=== PATIENT | male | born 1950 | race Caucasian/White ===

== ENCOUNTER 2016-09-24 17:28 | Inpatient (IN) | payer MEDICARE, OTHER ==
[~2016-09-24] VITALS: Ht 182.9 cm; Wt 153.1 kg
[~2016-09-24 17:28] MED LIST: ACET-2047 PO; ASPI-664 PO; BENA5TAB2 PO; CHOL100062 PO; FURO40TA4 PO; GABA100C14 PO; GLIP-95 PO; INSU100C SQ; MECL12.574 PO; METO-429 PO; ONDA4TAB14 PO; OXYC-279 PO; POLY17PO6 PO; PRAV40TA76 PO; RIVA15TA PO; SENN-8 PO; SITA100T8 PO; TAMS0.4C2 PO; ZOLP5TAB7 PO
--- NOTE | 2016-09-24 18:47 | RADRPT ---
PROCEDURE: XR Chest. CLINICAL INDICATION: Chest pain TECHNIQUE: A single portable view of the chest was obtained. COMPARISON: 04/12/2016 FINDINGS: The technique is lordotic. A prior median sternotomy is again seen. The aorta is tortuous and athe rosclerotic. The cardiomediastinal silhouette is otherwise mildly enlarged. The lung volumes are lo w with bibasilar compressive atelectasis. Mild diffuse pulmonary vascular congestion is seen. Left costophrenic blunting is suggested. No dense consolidation is seen. The soft tissues and osseous st ructures demonstrate benign age related senescent changes. IMPRESSION: 1. Mild cardiomegaly and mild diffuse pulmonary vascular congestion. 2. Left costophrenic angle blunting which may represent a small pleural effusion. RPTAT: HPNM Physician Helga Date Time Electronically viewed and signed by Physician Helga on 09/24/2016 18:46 /
[2016-09-24 19:01] LABS: ADD SCAN DIFF NO
[2016-09-24 19:03] LABS: BASOPHIL # 0.1 10^3/ul (0.0-0.1); EOSINOPHILS # 0.2 10^3/ul (0.0-0.5); HEMATOCRIT 37.4 % (42.0-52.0); HEMOGLOBIN 12.5 g/dl (14.0-18.0); LYMPHOCYTES # 1.1 10^3/ul (0.8-2.9); LYMPHOCYTES % 15.3 % (15.0-51.0); MEAN CORPUSCULAR HEMOGLOBIN 30.9 pg (29.0-33.0); MEAN CORPUSCULAR HGB CONC 33.4 g/dl (32.0-37.0); MEAN CORPUSCULAR VOLUME 92.6 fl (82.0-101.0); MEAN PLATELET VOLUME 10.8 fl (7.4-10.4); MONOCYTE # 0.7 10^3/ul (0.3-0.9); MONOCYTES % 10.1 % (0.0-11.0); NEUTROPHIL # 4.9 10^3/ul (1.6-7.5); PLATELET COUNT 167 10^3/UL (140-415); RED BLOOD COUNT 4.04 10^6/ul (4.70-6.10); RED CELL DISTRIBUTION WIDTH 13.4 % (11.5-14.5)
[2016-09-24 19:18] LABS: INR 1.42; PROTIME 17.4 Sec (12.2-14.2); PT RATIO 1.4
[2016-09-24 19:21] LABS: CHLORIDE 94 mmol/L (97-110); POTASSIUM 4.7 mmol/L (3.5-5.1); SODIUM 135 mmol/L (135-144)
[2016-09-24 19:24] LABS: ANION GAP 16 (8-16); BLOOD UREA NITROGEN 36 mg/dl (7-20); CARBON DIOXIDE 30 mmol/L (21-31); CREATININE 1.71 mg/dl (0.61-1.24); GLUCOSE 348 mg/dl (70-220)
[2016-09-24 19:25] LABS: CALCIUM 9.2 mg/dl (8.4-10.2)
--- NOTE | 2016-09-24 19:27 | RADRPT ---
PROCEDURE: US Lower extremity Venous. CLINICAL INDICATION: Left leg edema TECHNIQUE: Multiple sonographic images of the left lower extremity deep venous system was obtained utilizing grayscale, color-flow, compressive sonography and doppler imaging with augmentation. The images were reviewed on a PACS workstation. COMPARISON: None. FINDINGS: There is normal compressibility and flow within the left common femoral, femoral, posterior tibial, peroneal and popliteal veins. RPTAT: AA IMPRESSION: No sonographic evidence for deep venous thrombosis. .Jon Guerrero MD, MD Date Time Electronically viewed and signed by .Jon Guerrero MD, on 09/24/2016 19:26 .S/
[2016-09-24 19:34] LABS: B-TYPE NATRIURETIC PEPTIDE 1080 PG/ML (0-125)
[2016-09-24 19:42] LABS: TROPONIN-I < 0.012 ng/ml (0.00-0.12)
[2016-09-24] MEDS ORDERED: VANCOMYCIN 1 GM (PMX) 250 ML IVPB STA (19:52)
[2016-09-24] MEDS ORDERED: PIPER-TAZO 3.375 GM IV (PMX) 100 ML IVPB STA (19:52)
[2016-09-24] MEDS ORDERED: INSULIN LISPRO 100 UNIT/ML VIAL SC STA (19:57)
[2016-09-24] MEDS ORDERED: SOD CHLORIDE 0.9% 1,000 ML IV SCH (19:57)
--- NOTE | 2016-09-24 19:57 | ERA ---
ER Documentation Chief Complaint Date/Time DATE: 09/24/16 TIME: 19:54 Chief Complaint SENT BY SNF FOR EVAL OF LEFT LEG BLISTER AND REDNESS. HPI This is a 65-year-old male who presents to the emergency room for evaluation of left lower extremity pain and blistering. This patient was sent in by his primary care physician, Dr. Hopper. This patient denies any trauma to the area and denies any fevers. He does state he has blood clots in his legs and is on Xarelto for blood clots. The patient denies any numbness or tingling in the extremity and came to the ER for evaluation ROS All systems reviewed and are negative except as per history of present illness. Medications Home Meds Active Scripts Ondansetron (Ondansetron Odt) 4 Mg Tab.rapdis, 4 MG PO Q6H Y for NAUSEA AND/OR VOMITING, #30 TAB Prov:SWAPNIL RM MD 04/12/16 Meclizine Hcl* (Antivert*) 12.5 Mg Tab, 25 MG PO Q6H Y for DIZZINESS, #20 TAB Prov:SWAPNIL RM MD 04/12/16 Reported Medications Zolpidem Tartrate* (Zolpidem Tartrate*) 5 Mg Tablet, 5 MG PO QHS Y for INSOMNIA , #30 TAB 04/12/16 Sennosides/Docusate Sodium (Senna S Tablet) 1 Each Tablet, 1 EACH PO DAILY Y for CONSTIPATION, TAB 04/12/16 Oxycodone HCl/Acetaminophen (Percocet 5-325 mg Tablet) 1 Each Tablet, 1 EACH PO Q4 Y for SEVERE PAIN LEVEL 7-10, TAB 04/12/16 Acetaminophen* (Acetaminophen*) 650 Mg Tablet, 650 MG PO Q8 Y for PAIN AND OR ELEVATED TEMP, #30 TAB 04/12/16 Rivaroxaban* (Xarelto*) 15 Mg Tablet, 15 MG PO WITH BREAKFAST DINNE, TAB 04/12/16 Cholecalciferol* (Vitamin D3*) 1,000 Unit Tablet, 1000 UNIT PO DAILY, TAB 04/12/16 Tamsulosin Hcl* (Tamsulosin Hcl*) 0.4 Mg Cap.er.24h, 0.4 MG PO HS, CAP 04/12/16 Pravastatin Sodium* (Pravastatin Sodium*) 40 Mg Tablet, 40 MG PO HS, TAB 04/12/16 Polyethylene Glycol* (Miralax*) 17 Gm Powd.pack, 17 GM PO DAILY, #30 PACKET 04/12/16 Metoprolol Tartrate* (Lopressor*) 50 Mg Tab, 50 MG PO BID, #60 TAB 04/12/16 Sitagliptin* (Januvia*) 100 Mg Tablet, 100 MG PO DAILY, #30 TAB 04/12/16 Insulin Lispro (Humalog) 100 Unit/1 Ml Cartridge, 0-12 UNIT SQ AC BREAKFAST 04/12/16 Glipizide* (Glipizide*) 10 Mg Tablet, 10 MG PO BID, TAB 04/12/16 Gabapentin* (Gabapentin*) 100 Mg Capsule, 100 MG PO TID, #90 CAP 04/12/16 Furosemide* (Furosemide*) 40 Mg Tablet, 40 MG PO DAILY, TAB 04/12/16 Benazepril Hcl* (Benazepril Hcl*) 5 Mg Tablet, 5 MG PO DAILY, #30 TAB 04/12/16 Aspirin* (Aspirin* EC) 81 Mg Tablet.dr, 81 MG PO DAILY, TAB 04/12/16 Allergies Allergies: Coded Allergies: No Known Allergy (Unverified , 04/12/16) PMhx/Soc History of Surgery: No Anesthesia Reaction: No Hx Neurological Disorder: No Hx Respiratory Disorders: No Hx Cardiac Disorders: Yes (blood clots) Hx Psychiatric Problems: No Hx Miscellaneous Medical Probl: Yes (dm) Hx Alcohol Use: No Hx Substance Use: No Hx Tobacco Use: No Smoking Status: Never smoker Physical Exam Vitals Vital Signs Date Time Temp Pulse Resp B/P Pulse Ox O2 Delivery O2 Flow Rate FiO2 09/24/16 18:02 97.9 51 19 120/96 96 Physical Exam INITIAL VITAL SIGNS: Reviewed by me GENERAL: The patient is well developed and appropriate for usual state of health in no apparent distress HEENT: Pupils equal, round, and reactive to light. EOMI. There is no scleral icterus. NECK: C-spine is soft and supple, there is no meningismus. There is no cervical lymphadenopathy. LUNGS: Clear to auscultation bilaterally. There are no rales, wheezes or rhonchi. HEART: Regular rate and rhythm, no murmurs, clicks, rubs or gallops. ABDOMEN: Soft, non-tender, non-distended. There are bowel sounds in all four quadrants. No rebound or guarding. EXTREMITIES: There 2+ pitting edema to bilateral lower extremities . No focal swelling or erythema. NEUROLOGICAL: The patient moves all four extremities with 5/5 strength. Cranial nerves II - XII are intact. Normal gait. Alert and oriented SKIN: Left lower extremity erythema with blanching, 5 cm x 2 cm blister noted on the left lateral lower extremity, no skin sloughing HEME/LYMPHATIC: There is no evidence of excessive bruising or lymphedema. PSYCHIATRIC: The patient does not appear anxious or depressed. Result Diagram: 09/24/16 1840 09/24/16 1840 Results 24 hrs Laboratory Tests Test 09/24/16 18:40 White Blood Count 7.010^3/ul Red Blood Count 4.0410^6/ul Hemoglobin 12.5g/dl Hematocrit 37.4% Mean Corpuscular Volume 92.6fl Mean Corpuscular Hemoglobin 30.9pg Mean Corpuscular Hemoglobin Concent 33.4g/dl Red Cell Distribution Width 13.4% Platelet Count 71136^3/UL Mean Platelet Volume 10.8fl Neutrophils % 70.0% Lymphocytes % 15.3% Monocytes % 10.1% Eosinophils % 3.0% Basophils % 1.0% Nucleated Red Blood Cells % 0.0/100WBC Neutrophils # 4.910^3/ul Lymphocytes # 1.110^3/ul Monocytes # 0.710^3/ul Eosinophils # 0.210^3/ul Basophils # 0.110^3/ul Nucleated Red Blood Cells # 0.010^3/ul Prothrombin Time 17.4Sec Prothrombin Time Ratio 1.4 INR International Normalized Ratio 1.42 Activated Partial Thromboplast Time Pending Sodium Level 135mmol/L Potassium Level 4.7mmol/L Chloride Level 94mmol/L Carbon Dioxide Level 30mmol/L Anion Gap 16 Blood Urea Nitrogen 36mg/dl Creatinine 1.71mg/dl Glucose Level 348mg/dl Calcium Level 9.2mg/dl Troponin I < 0.012ng/ml B-Type Natriuretic Peptide 1080PG/ML [facility] EKG: Rate/Rhythm: [Normal Sinus Rhythm] QRS, ST, T-waves: [No changes consistent w/ acute ischemia] Impression: [No evidence of ischemia or arrhythmia] Chest X-ray 1V Interpreted by me: Soft Tissue: No acute abnormalities Bones: No acute abnormalities Mediastinum/Cardiac Silhouette/Lungs: Pulmonary vascular congestion Ultrasound left lower extremity: No DVT This 65-year-old male presents to the emergency room for evaluation of the left lower extremity pain and blistering. When I evaluated this patient I did note an area of erythema with blistering. Lab work was obtained which does not show any leukocytosis. This patient is afebrile and hemodynamically stable. I have contacted his primary care physician, Dr. Hopper would like this patient admitted at this time for IV antibiotics. The patient was started on vancomycin and Zosyn and will be placed for admission to the [facility] floor at this time. Blood cultures were ordered prior to IV antibiotics. This patient was also found to have an elevated blood sugar of 348 and was given 10 units of insulin subcutaneously Departure Diagnosis: Primary Impression: Left leg cellulitis Additional Impressions: Normocytic anemia Renal insufficiency Uncontrolled diabetes mellitus Condition: Stable RITU RUSSELL DO September 24, 2016 19:57
[2016-09-24 19:59] LABS: PARTIAL THROMBOPLASTIN TIME 72.7 Sec (25.0-35.0)
[2016-09-24] MEDS ORDERED: MAGNESIUM HYDROXIDE 30ML CUP PO PRN (20:00)
[2016-09-24] MEDS ORDERED: morphine 2 MG INJ IV PRN (20:00)
[2016-09-24] MEDS ORDERED: NACL 0.9% 3 ML SYG IV SCH (20:00)
[2016-09-24] MEDS ORDERED: SENNA/DOCUSATE NA (8.6MG/50MG) TAB PO PRN (20:00)
[2016-09-24] MEDS ORDERED: HYDROCODONE/APAP (5/325) TAB PO PRN (20:00)
[2016-09-24] MEDS ORDERED: ONDANSETRON 4 MG INJ IV PRN ×2 (20:00)
[2016-09-24] MEDS ORDERED: ACETAMINOPHEN 325 MG TAB PO PRN ×2 (20:00)
[2016-09-24] MEDS ORDERED: ZOLPIDEM 5 MG TAB PO PRN (20:00)
[2016-09-24] MEDS ORDERED: DOCUSATE SODIUM 100 MG CAP PO PRN (20:00)
[2016-09-24] MEDS ORDERED: DEXTROSE 50% 50 ML SYRINGE IV PRN ×2 (20:30)
[2016-09-24] MEDS ORDERED: GLUCOSE GEL 15 GRAM TUBE PO PRN ×2 (20:30)
[2016-09-24] MEDS ORDERED: VANCOMYCIN IV PER PHARMACY XX SCH (20:30)
[2016-09-24] MEDS ORDERED: GLUCOSE GEL 15 GRAM TUBE BUCCAL PRN (20:30)
[2016-09-24] MEDS ORDERED: GLUCAGON 1 MG INJ IM PRN (20:30)
[2016-09-24] MEDS ORDERED: HEPARIN 5,000 UNIT/0.5 ML VIAL SC SCH (21:00)
[2016-09-24] MEDS ORDERED: VANCOMYCIN 1.5 GM in SOD CHLORIDE 0.9% 250 ML IVPB SCH (21:00)
[2016-09-24] MEDS ORDERED: INSULIN GLARGINE [LANtus] 3 ML PEN SC SCH (21:00)
[2016-09-24] MEDS ORDERED: GUAI120L41 PO (21:56)
[2016-09-24] MEDS ORDERED: LINA5TAB PO (21:57)
[2016-09-24] MEDS ORDERED: CHOL20003 PO (21:58)
[2016-09-24] MEDS: PIPER-TAZO 3.375 GM IV (PMX) 100 ML IVPB SCH (22:00)
[2016-09-24] MEDS ORDERED: DIPH1TAB PO (22:01)
[2016-09-24] MEDS ORDERED: UDROBDM PO (22:03)
[2016-09-24] MEDS ORDERED: BETA15CR36 TP (22:06)
[2016-09-24] MEDS ORDERED: NEOM28OI TP (22:07)
[2016-09-24] MEDS ORDERED: METO5TAB65 PO (22:08)
[2016-09-24] MEDS ORDERED: POTA8CAP PO (22:09)
[2016-09-24 23:21] VITALS: PULSE 64; TEMP 98.1
[2016-09-25 00:05] VITALS: BP 140/61; RESP 18
[2016-09-25 00:12] VITALS: Ht 182.9 cm; Wt 153.1 kg
[2016-09-25] MEDS ORDERED: VANCOMYCIN 1 GM in NS 250 ML IVPB ONE (00:30)
[2016-09-25] MEDS: GABAPENTIN 100 MG CAP PO SCH ×4 (01:09→21:04)
[2016-09-25] MEDS: TAMSULOSIN (SR) 0.4 MG CAP PO SCH ×2 (01:09→21:03)
[2016-09-25] MEDS: METOPROLOL 50 MG TAB PO SCH ×3 (01:10→21:03)
[2016-09-25] MEDS: INSULIN ASPART [NOVOLOG] 3 ML PEN SC SCH ×6 (01:25→21:16)
[2016-09-25 01:39] LABS: CREATINE KINASE 44 IU/L (23-200)
[2016-09-25 01:52] LABS: CK-MB 0.69 ng/ml (0.0-2.4); TROPONIN-I < 0.012 ng/ml (0.00-0.12)
[2016-09-25] MEDS: PANTOPRAZOLE (EC) 40 MG TAB PO SCH (05:42)
[2016-09-25] MEDS: PIPER-TAZO 3.375 GM IV (PMX) 100 ML IVPB SCH ×3 (05:42→21:18)
[2016-09-25 07:16] LABS: ADD SCAN DIFF NO
[2016-09-25 07:20] LABS: BASOPHIL # 0.1 10^3/ul (0.0-0.1); BASOPHILS % 1.2 % (0.0-2.0); EOSINOPHILS # 0.2 10^3/ul (0.0-0.5); EOSINOPHILS % 3.1 % (0.0-7.0); HEMATOCRIT 34.4 % (42.0-52.0); HEMOGLOBIN 11.7 g/dl (14.0-18.0); MEAN CORPUSCULAR HEMOGLOBIN 31.5 pg (29.0-33.0); MEAN CORPUSCULAR VOLUME 92.5 fl (82.0-101.0); MEAN PLATELET VOLUME 10.7 fl (7.4-10.4); MONOCYTE # 0.7 10^3/ul (0.3-0.9); MONOCYTES % 10.8 % (0.0-11.0); NEUTROPHIL # 4.6 10^3/ul (1.6-7.5); NEUTROPHILS % 69.2 % (39.0-77.0); PLATELET COUNT 152 10^3/UL (140-415); RED BLOOD COUNT 3.72 10^6/ul (4.70-6.10); RED CELL DISTRIBUTION WIDTH 13.4 % (11.5-14.5); WHITE BLOOD COUNT 6.7 10^3/ul (4.8-10.8)
[2016-09-25 07:49] LABS: CREATINE KINASE 41 IU/L (23-200)
[2016-09-25 07:52] LABS: ALBUMIN 3.4 g/dl (3.3-4.9); ALBUMIN/GLOBULIN RATIO 1.13; BILIRUBIN,INDIRECT 0.5 mg/dl (0-1.1); BILIRUBIN,TOTAL 0.5 mg/dl (0.2-1.3); CALCIUM 8.9 mg/dl (8.4-10.2); CREATININE 1.53 mg/dl (0.61-1.24); MAGNESIUM 1.9 mg/dl (1.7-2.5); PHOSPHORUS 4.2 mg/dl (2.5-4.9); POTASSIUM 4.2 mmol/L (3.5-5.1); TOTAL PROTEIN 6.4 g/dl (6.1-8.1)
[2016-09-25 08:01] VITALS: BP 102/53; RESP 17
[2016-09-25 08:02] LABS: IRON 65 ug/dl (35-150)
[2016-09-25] MEDS: RIVAROXABAN 15 MG TABLET PO SCH ×2 (08:06→17:35)
[2016-09-25] MEDS: ASPIRIN (EC) 81 MG TAB PO SCH (08:08)
[2016-09-25] MEDS: CHOLECALCIFEROL 1,000 UNIT TAB PO SCH (08:08)
[2016-09-25] MEDS: POLYETHYLENE GLYCOL 17 GM PACKET PO SCH (08:08)
[2016-09-25 08:12] LABS: TOTAL IRON BINDING CAPACITY 267 ug/dl (241-421)
[2016-09-25 08:22] LABS: THYROID STIMULATING HORMONE 1.85 MIU/L (0.465-4.680)
[2016-09-25 08:42] LABS: CK-MB 0.65 ng/ml (0.0-2.4); TROPONIN-I < 0.012 ng/ml (0.00-0.12)
[2016-09-25] MEDS ORDERED: OXYCODONE/ACETAMINOPHEN (5/325) TAB PO PRN (12:00)
[2016-09-25] MEDS ORDERED: morphine 2 MG INJ IV PRN (12:00)
[2016-09-25] MEDS: GUAIFENESIN/DM 5ML CUP PO SCH ×2 (12:08→21:00)
[2016-09-25] MEDS: CHOLECALCIFEROL 2,000 UNIT CAP PO SCH (12:09)
[2016-09-25] MEDS: LINAGLIPTIN 5 MG TABLET PO SCH (12:09)
--- NOTE | 2016-09-25 15:15 | HP ---
DATE OF ADMISSION: 09/24/2016 REASON FOR ADMISSION: Left lower extremity cellulitis with significant blister and blistering and di abetes mellitus out of control. HISTORY OF PRESENT ILLNESS: The patient is a 65-year-old morbidly obese male with a histo ry of hypertension, diabetes mellitus, chronic pain, status post right shoulder rotator cuff repair surgery, a history of bilateral lower extremity DVTs, on Xarelto, overall debilitated state, nonambu latory as of recently, history of diabetic neuropathy, who currently resides at [facility]. The patient, again, is diabetic and was noted to have increased lower extrem ity pain and developed a large blister in the left lower extremity. It was decided to send him to [facility] for evaluation. In the ER the patient underwent a venous ultrasound of the lower extrem ity which showed no evidence of DVT. Chest x-ray shows mild cardiomegaly, mild diffuse pulmonary va scular congestion, left costophrenic angle blunting, which may represent a small pleural effusion. He was noted to have a large blister in the left tibial area, as the patient is diabetic. Glucose l evel was 348 and it was decided to admit the patient for antibiotic management and wound care. Upon questioning the patient was complaining of right shoulder pain, which has been chronic, asking for oxycodone. He denies any chest pain or shortness of breath. Denies any new weakness or numbness. The patient is admitted for further care. PAST MEDICAL HISTORY: Hypertension, diabetes mellitus, chronic pain, morbidly obese, history of DVT of the bilateral lower extremities, a history of right shoulder surgery recently, peripheral edema, status post mitral valve surgery repair, likely CHF. ALLERGIES: NO KNOWN DRUG ALLERGIES. SURGICAL HISTORY: Includes mitral valve replacement surgery, appendectomy in 1969, right shoulder r econstruction surgery a year and a half ago. SOCIAL HISTORY: The patient is x1. He has 2 grandkids. The patient currently resides at [facility]. His orthopedic is Dr. Johann Lorenz, who operated on his rig ht shoulder. The patient was previously a resident of [facility] [place], cur rently under the care of Dr. Bib Hopper at [facility]. MEDICATIONS: Include: 1. Aspirin 81 mg daily. 2. Benazepril 5 mg daily. 3. Lasix 40 mg daily. 4. Gabapentin 100 mg t.i.d. 5. Robitussin with codeine p.r.n. b.i.d. as directed. 6. Glipizide 10 mg b.i.d. 7. Humalog injection sliding scale. 8. . He finished that. 9. Metoprolol 50 mg, 1 tablet b.i.d. 10. Percocet 5/325 t.i.d., sounds like it is routine. 11. Pravastatin 40 mg daily. 12. Flomax 0.4 mg daily. 13. Tradjenta 5 mg daily. 14. Vitamin D 2000 units daily. 15. Xarelto 15 mg q. evening. 16. Betamethasone cream, apply to affected areas b.i.d. 17. Lomotil p.r.n. for diarrhea. 18. Meclizine 25 mg q.6 p.r.n. for dizziness. 19. Zofran 4 mg q.6 p.r.n. for nausea and vomiting. 20. Robitussin DM p.r.n. 21. Triple antibiotic ointment as directed. 22. Zolpidem 5 mg at bedtime p.r.n. insomnia. 23. Recently was on cephalexin 5 mg 4 times a day. 24. Metolazone 5 mg daily because of his blistering and edema. REVIEW OF SYSTEMS: Per HPI. PHYSICAL EXAMINATION: VITAL SIGNS: Temperature 98.2, pulse 72, respirations 17, blood pressure 102/53, saturations 91% to 95% on room air. GENERAL: The patient is in no acute distress. The patient is morbidly obese. CARDIOVASCULAR: S1 and S2. Regular rate and rhythm. LUNGS: Decreased bilaterally. ABDOMEN: Soft, obese. EXTREMITIES: +1 pitting edema of the lower extremities, with venous stasis of bilateral lower extre mities, with a severe left tibial area of blistering with mild erythema. NEUROLOGIC: The patient is moving all extremities. LABORATORY: White count is 6.7, hemoglobin 11.7, hematocrit 34, platelet count of 152, neutrophils 69%, lymphocytes 15%. Chemistry: Today sodium is 135, potassium 4.2, chloride 102, bicarbonate 28, BUN is 32, creatinine 1.53, glucose 198. Last glucose level was 213 and before that it was 180. H emoglobin A1c is remarkably high at 12.2, suggestive of poor glycemic control. AST 13, ALT 32, marychuy line phosphatase 78, albumin 3.4. B12 is low at 241. TSH 1.85. INR 1.42, as the patient is on Xar elto. The patient's chest x-ray shows mild cardiomegaly and mild diffuse pulmonary vascular congestion, le ft costophrenic angle blunting, which may represent a small pleural effusion. EKG shows cannot rule out inferior infarct, age indeterminate, 73 beats per minute. ASSESSMENT AND PLAN: This is an unfortunate 65-year-old morbidly obese male with a histor y of diabetes mellitus, chronic pain, most notably in the right shoulder, peripheral vascular diseas e, history of bilateral lower extremity DVT in the past, and hypertension, who presents with severe blistering of the left leg, which is slightly erythema and lower extremity edema. 1. Left lower extremity blister. Since he is diabetic I am very concerned about him developing an i nfection. The patient was started on antibiotics with vancomycin and Zosyn for mild cellulitis. Ke ep the legs elevated. Wound care consult was obtained. There is no evidence of DVT. 2. Peripheral edema. Hold IV fluids and start the patient back on diuretic therapy. Keep the legs elevated. The patient likely has a component of congestive heart failure, as suggested on the ches t x-ray, and lower extremity edema. 3. Anemia. Patient with B12 deficiency. B12 injection will be provided in-house. 4. Renal insufficiency, likely exacerbated by diuretic therapy, as the patient has been on Lasix an d metolazone. Observe. May consider a renal ultrasound to rule out an obstruction. 5. Diabetes mellitus, poorly controlled, with a hemoglobin A1c of 12.2. The patient will be starte d on weight-based insulin. Will try to find a good regimen he can use upon discharge. 6. Morbidly obese. Weight loss is important. Dietitian consult will be obtained. 7. Chronic pain, most notably the right shoulder. The patient states he also had imaging tests for that shoulder. Pain control will be provided for now. 8. Disposition. Back to the assisted living facility, hopefully soon. Will ask also for physical therapy to evaluate the patient. 9. History of open heart surgery and mitral valve repair surgery. May consider an echocardiogram, as the patient does have a component of CHF and peripheral edema. We will follow. Dictated By: RANCHO ALMEIDA/OMAR Conf#: [id number] DID#: [id number]
[2016-09-25] MEDS: CYANOCOBALAMIN 1000 MCG INJ IM SCH (16:21)
--- NOTE | 2016-09-25 16:28 | RADRPT ---
PROCEDURE: US Retroperitoneum CLINICAL INDICATION: Renal failure TECHNIQUE: Multiple sonographic images of the kidneys and bladder were obtained. Evaluation was p erformed as well with whitley scale and color and Doppler evaluation using a curved array transducer. The images were reviewed on a high-resolution PACS workstation. COMPARISON: No prior studies are available for comparison. FINDINGS: The kidneys are well visualized. The right kidney measures 10.2 cm in length. The left kidney measu res 11.7 cm in length. Small benign left renal cyst is incidentally noted. No solid renal mass, calc ulus, hydronephrosis or perinephric fluid collection is identified. The bladder is grossly unremarkable. Abdominal aorta and IVC are obscured by bowel gas. IMPRESSION: 1. Unremarkable renal ultrasound. No hydronephrosis or obstructive uropathy is identified. RPTAT: QQ .Kun Adame MD, MD Date Time Electronically viewed and signed by .Kun Adame MD, MD on 09/25/2016 16:28 .R/
[2016-09-25] MEDS: FUROSEMIDE 20 MG INJ IV SCH (17:35)
[2016-09-25] MEDS ORDERED: INSULIN GLARGINE [LANtus] 3 ML PEN SC SCH (21:00)
[2016-09-25] MEDS: VANCOMYCIN 1.5 GM in SOD CHLORIDE 0.9% 250 ML IVPB SCH ×2 (21:03→22:21)
[2016-09-25 21:29] VITALS: BP 157/82; RESP 18
[2016-09-25] MEDS: oxyCODONE 5 MG TAB PO PRN (22:21)
[2016-09-26 05:09] LABS: ADD SCAN DIFF NO
[2016-09-26 05:17] LABS: BASOPHIL # 0.1 10^3/ul (0.0-0.1); BASOPHILS % 0.8 % (0.0-2.0); EOSINOPHILS # 0.2 10^3/ul (0.0-0.5); HEMATOCRIT 36.4 % (42.0-52.0); LYMPHOCYTES # 0.9 10^3/ul (0.8-2.9); LYMPHOCYTES % 12.2 % (15.0-51.0); MEAN CORPUSCULAR HEMOGLOBIN 30.5 pg (29.0-33.0); MEAN CORPUSCULAR VOLUME 92.6 fl (82.0-101.0); MEAN PLATELET VOLUME 10.6 fl (7.4-10.4); MONOCYTE # 0.7 10^3/ul (0.3-0.9); MONOCYTES % 9.4 % (0.0-11.0); NEUTROPHIL # 5.5 10^3/ul (1.6-7.5); NEUTROPHILS % 73.8 % (39.0-77.0); PLATELET COUNT 162 10^3/UL (140-415); RED BLOOD COUNT 3.93 10^6/ul (4.70-6.10); RED CELL DISTRIBUTION WIDTH 13.2 % (11.5-14.5); WHITE BLOOD COUNT 7.4 10^3/ul (4.8-10.8)
[2016-09-26 05:31] LABS: PHOSPHORUS 4.3 mg/dl (2.5-4.9)
[2016-09-26 05:32] LABS: CALCIUM 9.2 mg/dl (8.4-10.2); CREATININE 1.6 mg/dl (0.61-1.24); POTASSIUM 4.9 mmol/L (3.5-5.1)
[2016-09-26] MEDS: PANTOPRAZOLE (EC) 40 MG TAB PO SCH (06:09)
[2016-09-26] MEDS: PIPER-TAZO 3.375 GM IV (PMX) 100 ML IVPB SCH ×3 (06:09→20:53)
[2016-09-26] MEDS: FUROSEMIDE 20 MG INJ IV SCH ×2 (06:17→16:50)
[2016-09-26] MEDS: INSULIN ASPART [NOVOLOG] 3 ML PEN SC SCH ×7 (08:10→21:00)
[2016-09-26] MEDS: CYANOCOBALAMIN 1000 MCG INJ IM SCH (08:11)
[2016-09-26] MEDS: CHOLECALCIFEROL 1,000 UNIT TAB PO SCH (08:12)
[2016-09-26] MEDS: GABAPENTIN 100 MG CAP PO SCH ×3 (08:12→20:51)
[2016-09-26] MEDS: LINAGLIPTIN 5 MG TABLET PO SCH (08:12)
[2016-09-26] MEDS: ASPIRIN (EC) 81 MG TAB PO SCH (08:12)
[2016-09-26] MEDS: CHOLECALCIFEROL 2,000 UNIT CAP PO SCH (08:12)
[2016-09-26] MEDS: GUAIFENESIN/DM 5ML CUP PO SCH (08:12)
[2016-09-26] MEDS: METOPROLOL 50 MG TAB PO SCH ×2 (08:13→20:51)
[2016-09-26] MEDS: oxyCODONE 5 MG TAB PO PRN ×2 (08:17→21:16)
[2016-09-26 08:18] VITALS: BP 124/63; RESP 16
[2016-09-26] MEDS: RIVAROXABAN 15 MG TABLET PO SCH ×2 (08:21→20:40)
[2016-09-26] MEDS: POLYETHYLENE GLYCOL 17 GM PACKET PO SCH (08:21)
[2016-09-26] MEDS ORDERED: GUAIFENESIN/DM 5ML CUP PO PRN (12:30)
--- NOTE | 2016-09-26 14:37 | PN ---
DATE: 09/26/2016 SUBJECTIVE: The patient seen, feeling better. His left tibial blister popped. Case discussed with nursing staff. Patient overall feeling better. Glucose levels are in the 100s now. Case discusse d with nursing staff. PHYSICAL EXAMINATION: VITAL SIGNS: Blood pressure 97.6, pulse 75, respirations 16, blood pressure 124/62, saturation is 9 0% to 95% on room air. GENERAL: The patient is morbidly obese, pale. CARDIOVASCULAR: S1 and S2, regular rate. LUNGS: Clear. ABDOMEN: Soft, obese. EXTREMITIES: Still trace edema to +1 edema of the lower extremity, left. He has venous stasis and hyperpigmentation of the lower extremities below the tibia, and lower extremity trace to +1 edema. LABORATORY DATA: Sodium 136, potassium 4.9, chloride 99, bicarbonate is 32, BUN is 31, creatinine 0 .6, glucose 173. Last glucose level 182, 169 and 183. Again, his B12 level was at 241 low. White c ount is 7.4, hemoglobin 12, hematocrit 36, platelet count of 162 with neutrophils 74%, lymphocytes 1 2%. Renal ultrasound was done that shows unremarkable renal ultrasound, no hydronephrosis or obstru ctive uropathy is identified. MEDICATIONS: Reviewed, include: 1. Vancomycin, dose per pharmacy. 2. Lantus 20 units at bedtime. 3. Lasix 20 IV b.i.d. 4. Insulin aspart 6 units q.a.c. meals. 5. Vitamin B12 injection 1000 IM daily. 6. Oxycodone 10 mg q.4 p.r.n. 7. Robitussin-DM t.i.d., will change it to p.r.n. 8. Morphine 2 mg IV q.4 p.r.n. 9. Vitamin D 2000 daily. 10. Tradjenta 5 mg daily. 11. Aspirin 81 mg daily. 12. Vitamin D 1000 daily. He has 2 dosages so will discontinue one. 13. MiraLax 17 grams daily. 14. Xarelto 50 mg daily. 15. Protonix 40 mg daily. 16. Zosyn 3.375 IV q.8. 17. Neurontin 100 t.i.d. 18. Lopressor 50 ____ 19. Flomax 0.4 at bedtime. 20. Insulin aspart per sliding scale. 21. Hypoglycemia protocol as directed. 22. Zofran p.r.n. 23. Tylenol p.r.n. 24. Brice, will discontinue as he has already Percocet p.r.n. 25. Colace p.r.n. 26. Milk of magnesia p.r.n. 27. ____ p.r.n. 28. Senna p.r.n. ASSESSMENT AND PLAN: This is a 65-year-old morbidly obese male with history of diabetes m ellitus, chronic pain, right shoulder pain, peripheral vascular disease, history of bilateral lower extremity deep venous thrombosis and hypertension who presented with left leg blister with slight stokes rrounding erythema suggestive of cellulitis, also peripheral edema and diabetes out of control. 1. Left lower extremity blister with possible underlying cellulitis, remains on broad spectrum anti biotic. Would deescalate antibiotics soon. development specialist is pending and now the blister has pop ped. 2. History of deep venous thrombosis. Continue Xarelto for now, especially since he does not get m uch out of his bed. 3. Peripheral edema. Continue with IV Lasix 20 IV q.12 for now. Leg elevation. 4. Anemia. Patient with B12 deficiency. Continue B12 injections while in house. 5. Renal insufficiency, likely exacerbated by diuretic therapy, continue to monitor, now off metola zone. 6. Diabetes mellitus. Continue Tradjenta and Lantus 26 units, increase NovoLog to 8 units q.a.c. meals. 7. Morbidly obese state. Dietitian consultation was obtained. Weight loss is important. On ADA d iet 1800. 8. Chronic pain, most notably in the right shoulder. Continue pain control. Physical therapy to alfonso nath. 9. Disposition: Soon back to the assisted living facility. 10. History of heart valve surgery and peripheral edema, likely has a component of congestive heart failure. Continue IV Lasix for now. We will follow. Dictated By: RANCHO ALMEIDA/OMAR Conf#: [id number] DID#: [id number]
[2016-09-26] MEDS: TAMSULOSIN (SR) 0.4 MG CAP PO SCH (20:50)
[2016-09-26] MEDS: VANCOMYCIN 1.5 GM in SOD CHLORIDE 0.9% 250 ML IVPB SCH (20:53)
[2016-09-26] MEDS ORDERED: INSULIN GLARGINE [LANtus] 3 ML PEN SC SCH (21:00)
[2016-09-26 21:04] VITALS: BP 116/63; RESP 19
[2016-09-27 06:02] LABS: ADD SCAN DIFF NO
[2016-09-27 06:05] LABS: BASOPHILS % 0.6 % (0.0-2.0); EOSINOPHILS # 0.2 10^3/ul (0.0-0.5); EOSINOPHILS % 2.8 % (0.0-7.0); HEMOGLOBIN 12.1 g/dl (14.0-18.0); LYMPHOCYTES # 1.1 10^3/ul (0.8-2.9); LYMPHOCYTES % 15.3 % (15.0-51.0); MEAN CORPUSCULAR HEMOGLOBIN 30.5 pg (29.0-33.0); MEAN CORPUSCULAR HGB CONC 32.7 g/dl (32.0-37.0); MEAN CORPUSCULAR VOLUME 93.2 fl (82.0-101.0); MEAN PLATELET VOLUME 10.9 fl (7.4-10.4); MONOCYTE # 0.7 10^3/ul (0.3-0.9); NEUTROPHIL # 4.9 10^3/ul (1.6-7.5); NEUTROPHILS % 70.6 % (39.0-77.0); PLATELET COUNT 148 10^3/UL (140-415); RED BLOOD COUNT 3.97 10^6/ul (4.70-6.10); RED CELL DISTRIBUTION WIDTH 13.6 % (11.5-14.5); WHITE BLOOD COUNT 6.9 10^3/ul (4.8-10.8)
[2016-09-27 06:40] LABS: MAGNESIUM 1.9 mg/dl (1.7-2.5); PHOSPHORUS 5.3 mg/dl (2.5-4.9)
[2016-09-27 06:44] LABS: CALCIUM 8.9 mg/dl (8.4-10.2); CREATININE 1.99 mg/dl (0.61-1.24); POTASSIUM 4.2 mmol/L (3.5-5.1)
[2016-09-27] MEDS: PANTOPRAZOLE (EC) 40 MG TAB PO SCH (06:47)
[2016-09-27] MEDS: FUROSEMIDE 20 MG INJ IV SCH (06:47)
[2016-09-27] MEDS: PIPER-TAZO 3.375 GM IV (PMX) 100 ML IVPB SCH ×3 (06:47→21:43)
[2016-09-27 07:47] VITALS: BP 121/58; RESP 16
[2016-09-27] MEDS: POLYETHYLENE GLYCOL 17 GM PACKET PO SCH (09:00)
[2016-09-27] MEDS: METOPROLOL 50 MG TAB PO SCH ×2 (09:07→20:56)
[2016-09-27] MEDS: ASPIRIN (EC) 81 MG TAB PO SCH (09:07)
[2016-09-27] MEDS: RIVAROXABAN 15 MG TABLET PO SCH ×2 (09:07→17:42)
[2016-09-27] MEDS: CHOLECALCIFEROL 2,000 UNIT CAP PO SCH (09:07)
[2016-09-27] MEDS: SENNA/DOCUSATE NA (8.6MG/50MG) TAB PO SCH (09:07)
[2016-09-27] MEDS: LINAGLIPTIN 5 MG TABLET PO SCH (09:07)
[2016-09-27] MEDS: GABAPENTIN 100 MG CAP PO SCH ×3 (09:07→20:57)
[2016-09-27] MEDS: CYANOCOBALAMIN 1000 MCG INJ IM SCH (09:08)
[2016-09-27] MEDS: INSULIN ASPART [NOVOLOG] 3 ML PEN SC SCH ×6 (09:10→21:00)
[2016-09-27] MEDS: oxyCODONE 5 MG TAB PO PRN ×2 (09:18→21:10)
--- NOTE | 2016-09-27 18:45 | PN ---
DATE: 09/27/2016 SUBJECTIVE: Patient seen. The patient's kidney function has worsened. Will hold his diuretic ther apy and observe. The patient is now sitting in the chair, overall comfortable. I advised him to ke ep his legs elevated still. His blister has popped. We will ask the network management specialist to evaluate f or possible dressing changes. Glucose levels are also remain high and we will have to adjust his di abetic meds. PHYSICAL EXAMINATION: VITAL SIGNS: Temperature 98.1, pulse 80, respirations 16, blood pressure 121/58, saturation 92% on room air. GENERAL: The patient is in no acute distress, morbidly obese, BMI of 45.8. CARDIOVASCULAR: S1 and S2. Distant heart sounds. LUNGS: Clear. ABDOMEN: Soft, nontender. EXTREMITIES: +1 pitting edema bilateral lower extremity. He had venous stasis bilateral lower extr emity and left mid tibia popped blister. LABORATORY DATA: White count is 6.9, hemoglobin 12.1, hematocrit 37, platelet count 140 with normal differential. Chemistry: Sodium 132, potassium 4.2, chloride 96, bicarbonate 30, BUN is 32, creat inine 1.99, glucose 174. Last glucose level was high at 253 and before that 202. Other labs: TSH 1.85. B12 is 241, low. MEDICATIONS: 1. Lantus just increased to 34 units. 2. Insulin aspart from 8 to 12 units q.a.c. meals. 3. Senna 1 tablet daily. 4. Robitussin-DM t.i.d. p.r.n. 5. Oxycodone 20 mg q.4h p.r.n. 6. Vancomycin dose per pharmacy. 7. Vitamin B12 1000 daily by injection. 8. Morphine p.r.n. 9. Vitamin D 2000 units daily. 10. Tradjenta 5 mg daily. 11. Aspirin 81 mg daily. 12. MiraLax 17 grams daily. 13. Xarelto 50 mg with meals. 14. Protonix 40 mg daily. 15. Zosyn 0.375 IV q.8h. 16. Neurontin 100 t.i.d. 17. Lopressor 50 b.i.d. 18. Flomax 0.4 at bedtime. 19. Hypoglycemia protocol. 20. Zofran p.r.n. 21. Tylenol p.r.n. 22. Morley p.r.n. No MRSA noted. ASSESSMENT AND PLAN: This is a 65-year-old morbidly obese male with history of diabetes m ellitus, chronic pain in the right shoulder, peripheral vascular disease, bilateral lower extremity deep venous thrombosis and hypertension presenting with left leg blister with ____ and erythema sugg estive of cellulitis, also peripheral edema and shortness of breath suggestive of congestive heart f ailure exacerbation. 1. Respiratory. Status post diuretic therapy, currently is not short of breath. Continue O2 as ne eded, continue Xarelto. The patient is overall nonambulatory and history of deep venous thrombosis in the past. 2. Peripheral edema hold diuretic therapy, keep legs elevated. His kidney function has worsened. 3. Acute on chronic renal insufficiency. Patient with baseline chronic kidney disease stage II. T his is also likely exacerbated secondary to diuretic therapy. We will hold diuretic therapy and yumiko ck for proteinuria. The patient is at risk for nephrotic syndrome due to diabetic. We will follow for recovery. 4. Diabetes mellitus. Increase the Lantus, increase NovoLog, observe. Continue Tradjenta. 5. Morbidly obese state, I appreciate dietitian recommendations. 6. Chronic pain. Continue above opioids. 7. Physical therapy as tolerated. 8. Disposition: Likely to long term facility. This patient needs wound care, physical thera py. Control his diabetes better. 9. Status post valve surgery. We will consider echocardiogram as patient has peripheral edema and presented initially with congestive heart failure exacerbation. Continue Protonix for GI prophylaxi s. 9. Anemia. Continue B12 injections switch to oral B12 upon discharge. DISPOSITION: Hopefully soon. INFECTIOUS DISEASE: We will de-escalate antibiotics. There is no evidence of methicillin--resista nt Staphylococcus aureus. We will follow. Dictated By: RANCHO ALMEIDA/OMAR Conf#: [id number] DID#: [id number]
[2016-09-27 20:24] VITALS: BP 132/63; RESP 18
[2016-09-27] MEDS: TAMSULOSIN (SR) 0.4 MG CAP PO SCH (20:57)
[2016-09-27] MEDS ORDERED: INSULIN GLARGINE [LANtus] 3 ML PEN SC SCH (21:00)
[2016-09-28 06:10] LABS: CALCIUM 8.5 mg/dl (8.4-10.2); CREATININE 2.04 mg/dl (0.61-1.24); POTASSIUM 4.7 mmol/L (3.5-5.1)
[2016-09-28 06:12] LABS: BASOPHIL # 0.1 10^3/ul (0.0-0.1); BASOPHILS % 0.8 % (0.0-2.0); EOSINOPHILS # 0.2 10^3/ul (0.0-0.5); HEMATOCRIT 33.7 % (42.0-52.0); HEMOGLOBIN 11.1 g/dl (14.0-18.0); LYMPHOCYTES # 1.1 10^3/ul (0.8-2.9); LYMPHOCYTES % 16.7 % (15.0-51.0); MEAN CORPUSCULAR HEMOGLOBIN 30.9 pg (29.0-33.0); MEAN CORPUSCULAR HGB CONC 32.9 g/dl (32.0-37.0); MEAN CORPUSCULAR VOLUME 93.9 fl (82.0-101.0); MEAN PLATELET VOLUME 10.8 fl (7.4-10.4); MONOCYTE # 0.7 10^3/ul (0.3-0.9); MONOCYTES % 10.3 % (0.0-11.0); NEUTROPHIL # 4.5 10^3/ul (1.6-7.5); NEUTROPHILS % 68.4 % (39.0-77.0); PLATELET COUNT 149 10^3/UL (140-415); RED BLOOD COUNT 3.59 10^6/ul (4.70-6.10); RED CELL DISTRIBUTION WIDTH 13.6 % (11.5-14.5); WHITE BLOOD COUNT 6.6 10^3/ul (4.8-10.8)
[2016-09-28 06:13] LABS: ADD SCAN DIFF NO
[2016-09-28 06:16] LABS: PHOSPHORUS 4.9 mg/dl (2.5-4.9)
[2016-09-28] MEDS: PIPER-TAZO 3.375 GM IV (PMX) 100 ML IVPB SCH ×3 (06:24→21:08)
[2016-09-28] MEDS: PANTOPRAZOLE (EC) 40 MG TAB PO SCH (06:24)
[2016-09-28 07:36] VITALS: BP 154/78; RESP 20
[2016-09-28] MEDS: SENNA/DOCUSATE NA (8.6MG/50MG) TAB PO SCH (08:39)
[2016-09-28] MEDS: CHOLECALCIFEROL 2,000 UNIT CAP PO SCH (08:39)
[2016-09-28] MEDS: GABAPENTIN 100 MG CAP PO SCH ×3 (08:39→21:05)
[2016-09-28] MEDS: ASPIRIN (EC) 81 MG TAB PO SCH (08:39)
[2016-09-28] MEDS: POLYETHYLENE GLYCOL 17 GM PACKET PO SCH (08:39)
[2016-09-28] MEDS: LINAGLIPTIN 5 MG TABLET PO SCH (08:40)
[2016-09-28] MEDS: METOPROLOL 50 MG TAB PO SCH ×2 (08:40→21:05)
[2016-09-28] MEDS: CYANOCOBALAMIN 1000 MCG INJ IM SCH (08:41)
[2016-09-28] MEDS: INSULIN ASPART [NOVOLOG] 3 ML PEN SC SCH ×7 (08:43→20:33)
[2016-09-28] MEDS: RIVAROXABAN 15 MG TABLET PO SCH ×2 (10:04→17:40)
[2016-09-28 11:26] LABS: PROTEIN/CREAT RATIO 0.07 RATIO
--- NOTE | 2016-09-28 14:22 | PN ---
DATE: 09/28/2016 SUBJECTIVE: The patient seen. Noted worsening kidney function. BUN and creatinine are 42/2.04. A lso glucose level remains somewhat in high 100s, low 200s. We will keep him another day for fluid c hallenge and diabetes management. I appreciate surveillance specialist recommendations. Case discussed. PHYSICAL EXAMINATION: VITAL SIGNS: Temperature 98.2, pulse 78, respirations 20, blood pressure 154/78, saturation 95% on room air. GENERAL: No acute distress, morbidly obese. CARDIOVASCULAR: S1 and S2, decreased heart sounds. LUNGS: Clear. ABDOMEN: Soft, nontender. EXTREMITIES: Trace to +1 edema lower extremity. Left lower extremity blister popped out, slight er ythema around. LABORATORY DATA: White count is 6.6, hemoglobin 11.1, hematocrit 34, platelet count 149, neutrophil s 68%, lymphocytes 17%. Chemistry: Sodium is 134, potassium 4.7, chloride 97, bicarbonate 30, BUN is 42, creatinine is worse at 2.04, glucose of 150. Last glucose level 203 and 221. Urine protein- creatinine ratio is within normal limits at 0.07. This patient does not have significant proteinuri a. MEDICATIONS: Include: 1. Lantus 34 units at bedtime. 2. Insulin aspart 12 units before meals. 3. Senna daily. 4. Robitussin p.r.n. 5. Oxycodone 20 q.4h. p.r.n. 6. Vitamin B12 injection 1000 daily. 7. Morphine p.r.n. 8. Vitamin D 2000 daily. 9. Tradjenta 5 mg daily. 10. Aspirin 81 mg daily. 11. MiraLax 17 grams daily. 12. Xarelto 15 mg with dinner. 13. Protonix 40 mg daily. 14. Zosyn 3.375 IV q.8h. 15. Neurontin 100 t.i.d. 16. Lopressor 50 b.i.d. 17. Flomax 0.4 at bedtime. 18. Insulin aspart per sliding scale. 19. Hypoglycemia protocol. 20. P.r.n. medications all reviewed. ASSESSMENT AND PLAN: This is a 65-year-old morbidly obese male with history of diabetes m ellitus, chronic pain, right shoulder pain, peripheral vascular disease, bilateral lower extremity d eep venous thrombosis in the past, hypertension, who presents with left lower extremity blister. e patient is diabetic with surrounding mild cellulitis, also peripheral edema and shortness of breat h initially. 1. Respiratory, stable. O2 support as needed. 2. Cardiovascular. The patient with peripheral edema. We will consider obtaining an echocardiogra m to evaluate ejection fraction. The patient likely has diastolic dysfunction heart failure, curren tly compensated. 3. Acute renal failure, likely exacerbated by diuretic therapy. We will start him on fluid challen ge overnight. 4. Diabetes mellitus. Increase Lantus and NovoLog further. Continue Tradjenta. 5. Morbidly obese state. Weight loss is very important. I appreciate dietitian recommendations. 6. B12 deficiency. Continue with B12 injection while in house. 7. Disposition. Back to assisted living facility as patient does not want to go to the nursing gideon e. 8. Chronic pain. Pain control is being provided. Avoid NSAID secondary to renal insufficiency. W e will follow. 9. Infectious disease. Continue Zosyn for his cellulitis and blister. Dictated By: RANCHO ALMEIDA/OMAR Conf#: [id number] DID#: [id number]
[2016-09-28] MEDS: SOD CHLORIDE 0.9% 1,000 ML IV SCH ×2 (14:51→20:32)
[2016-09-28 20:08] VITALS: BP 117/67; RESP 21
[2016-09-28] MEDS ORDERED: INSULIN GLARGINE [LANtus] 3 ML PEN SC SCH (21:00)
[2016-09-28] MEDS: TAMSULOSIN (SR) 0.4 MG CAP PO SCH (21:05)
[2016-09-28] MEDS: oxyCODONE 5 MG TAB PO PRN (21:20)
[2016-09-29] MEDS: PIPER-TAZO 3.375 GM IV (PMX) 100 ML IVPB SCH ×2 (05:09→13:52)
[2016-09-29] MEDS: PANTOPRAZOLE (EC) 40 MG TAB PO SCH (05:11)
[2016-09-29 06:19] LABS: PHOSPHORUS 4.2 mg/dl (2.5-4.9)
[2016-09-29 06:20] LABS: MAGNESIUM 2.1 mg/dl (1.7-2.5)
[2016-09-29 06:24] LABS: POTASSIUM 3.8 mmol/L (3.5-5.1)
[2016-09-29 06:27] LABS: CREATININE 1.84 mg/dl (0.61-1.24)
[2016-09-29 06:28] LABS: CALCIUM 8.4 mg/dl (8.4-10.2)
[2016-09-29] MEDS: INSULIN ASPART [NOVOLOG] 3 ML PEN SC SCH ×6 (07:59→17:33)
[2016-09-29 08:03] VITALS: BP 141/63; RESP 18
[2016-09-29] MEDS: GABAPENTIN 100 MG CAP PO SCH ×2 (08:03→13:52)
[2016-09-29] MEDS: SENNA/DOCUSATE NA (8.6MG/50MG) TAB PO SCH (08:03)
[2016-09-29] MEDS: CHOLECALCIFEROL 2,000 UNIT CAP PO SCH (08:03)
[2016-09-29] MEDS: ASPIRIN (EC) 81 MG TAB PO SCH (08:03)
[2016-09-29] MEDS: LINAGLIPTIN 5 MG TABLET PO SCH (08:03)
[2016-09-29] MEDS: CYANOCOBALAMIN 1000 MCG INJ IM SCH (08:07)
[2016-09-29] MEDS: METOPROLOL 50 MG TAB PO SCH (08:07)
[2016-09-29] MEDS: POLYETHYLENE GLYCOL 17 GM PACKET PO SCH (08:12)
[2016-09-29] MEDS: oxyCODONE 5 MG TAB PO PRN (08:25)
[2016-09-29] MEDS: RIVAROXABAN 15 MG TABLET PO SCH ×2 (09:22→17:30)
--- NOTE | 2016-09-29 09:55 | RADRPT ---
Echocardiogram Report Patient Name: RAMESH JAUREGUI Gender: Male Date: 1950 Study Date: 28-Sep-2016 Plant Accountant: [facility] Location: 2253 Ref. Physician: RANCHO COVARRUBIAS Quality: Technically Difficult Study Procedures: Transthoracic echocardiogram with complete 2D, M-Mode, and doppler examination. Indications: PERIPHERAL EDEMA. 2D/M Mode Doppler Measurement Value Normal Ranges Measurement Value Normal Ranges LVIDd 2D 5.4 3.5 - 5.6 cm KIRAN Vmax 2.5 cm2 LVIDs 2D 4.7 2.1 - 4.1 cm KIRAN VTI 2.5 cm2 LVPWd 2D 1.5 0.6 - 1.1 cm AV Peak Evangelist 1.2 m/sec IVSd 2D 1.5 0.6 - 1.1 cm AV Peak PG 5.8 mmHg AoR Diam 2D 3.4 2.0 - 3.7 cm LVOT Peak Evangelist 0.9 m/sec EDV 2D 139.3 cm3 LVOT Peak PG 3.1 mmHg ESV 2D 102.2 cm3 MV PHT 91.9 msec LA Dimen 2D 4.5 2.3 - 4.0 cm MV Peak Evangelist 2.1 m/sec LVOT Diam 2.1 cm MV Peak PG 17.8 mmHg MV Mean Evangelist 1.1 m/sec MV Mean PG 6.8 mmHg MV PHT 91.9 msec MV VTI 71.3 cm MVA PHT 2.4 cm2 Findings Left Ventricle: Normal left ventricular cavity size. Moderate concentric left ventricular hypertrophy. Moderate global left ventricular systolic dysfunction. Ejection fraction is visually estimated at 40 %. Right Ventricle: Normal right ventricular size. Mild right ventricular hypokinesis. Left Atrium: There is mild enlargement of left atrium. Right Atrium: The right atrium is normal in size. Mitral Valve: Mitral valve is not well visualized. Mitral valve leaflets appear mildly thickened. Mild mitral annular calcification. Trace mitral regurgitation. Mitral valve Max Velocity 2.11 m/sec. MaxPG 17.80 mmHg. MeanPG 6.80 mmHg. Mitral Valve Area by PHT2.40 cm2. Aortic Valve: Aortic valve not well visualized. Tricuspid Valve: Tricuspid valve not well visualized. There is trace tricuspid regurgitation. Pulmonic Valve: Pulmonic valve not well visualized. No evidence of pulmonic regurgitation. Pericardium: Normal pericardium with no significant pericardial effusion. Aorta: Normal aortic root. IVC: Dilated IVC with respiratory collapse consistent with elevated right atrial pressure. Conclusions 1.Normal left ventricular cavity size. Moderate concentric left ventricular hypertrophy. Moderate global left ventricular systolic dysfunction. Ejection fraction is visually estimated at 40 %. 2.There is mild enlargement of left atrium. 3.Mitral valve is not well visualized. Mitral valve leaflets appear mildly thickened. Mild mitral annular calcification. Trace mitral regurgitation. Mitral valve Max Velocity 2.11 m/sec. MaxPG 17.80 mmHg. MeanPG 6.80 mmHg. Mitral Valve Area by PHT2.40 cm2. 4.probably s/p MVR. 5.Aortic valve not well visualized. 6.Tricuspid valve not well visualized. There is trace tricuspid regurgitation. 7.Dilated IVC with respiratory collapse consistent with elevated right atrial pressure. Electronically Signed By: Curly Santiago 29-Sep-2016 09:54:22 -0700 Patient Name: RAMESH JAUREGUI Study Date: 28-Sep-2016 [id number]
[2016-09-29] MEDS: SOD CHLORIDE 0.9% 1,000 ML IV SCH (13:53)
[2016-09-29] MEDS ORDERED: METOLAZONE 5 MG TAB PO SCH (15:00)
--- NOTE | 2016-09-29 15:01 | PDOCDIS ---
Discharge Instructions CONDITION Patient Condition: Stable HOME CARE INSTRUCTIONS: Special Diet: 1800 ADA ACTIVITY: Activity Restrictions: Slowly Increase Activity FOLLOW UP/APPOINTMENTS Appointments discharge with home health, see attached prescriptions, keep legs elevated, wound care per clinical account specialist RANCHO COVARRUBIAS MD September 29, 2016 15:01
[2016-09-29] MEDS ORDERED: CYAN500T46 PO (15:14)
[2016-09-29] MEDS ORDERED: LANT3I SC (15:14)
[2016-09-29] MEDS ORDERED: OXYC-481 PO (15:14)
[2016-09-29] MEDS ORDERED: NOVO3I SC (15:14)
[2016-09-29] MEDS ORDERED: AMOX1TAB10 PO (15:15)
[2016-09-29] MEDS ORDERED: POTA20TA96 PO (15:17)
--- NOTE | 2016-09-29 15:52 | DS ---
DATE OF ADMISSION: 09/24/2016 DATE OF DISCHARGE: 09/29/2016 REASON FOR ADMISSION: Left lower extremity cellulitis with blistering, diabetes out of control. HOSPITAL COURSE: The patient is an unfortunate 65-year-old morbidly obese male with histo ry of hypertension, diabetes mellitus, chronic pain, status post right shoulder rotator cuff repair surgery, history of bilateral lower extremity deep venous thrombosis on Xarelto, overall very debili tated, nonambulatory, also diabetic and has diabetic neuropathy and currently resides at [facility] living [facility]. The patient was brought in as he was complaining of increased lower extremity pain and developed a large blister in the left lower extremity. The patient is diabetic. In the ER, he was noted to have high glucose level in the 300s. Ultrasound of the lower extremity revealed no evidence of DVT. Chest x-ray shows just mild diffuse pulmonary vascular congestion. I started the patient on diuretic therapy and antibiotics and consulted the automotive alignment specialist. Bliste r in the left lower extremity opened, and the patient was provided wound care. He was placed on tri ple antibiotic ointment and dressing changes. Hemoglobin A1c came back at 12.2. B12 levels were lo w as well. I started him on weight-based insulin and titrated his insulin up during his hospitaliza tion. Glucose levels are now quite good in the low 100s. Now we are managing diabetes. I advised him to go to a [facility] facility to continue with wound care, leg elevation, and close monito ring of his kidney function as I may start him on diuretic therapy as kidney function has worsened. I held his diuretics and started him back on IV fluids, and kidney function improved. Overall, he still has significant edema of the lower extremities, and on initial presentation, he did complain o f slight shortness of breath. I proceeded with an echocardiogram which did confirm congestive heart failure with ejection fraction of 40%. I will discharge him again with oral Zaroxolyn, and legs ne ed to be elevated. The patient will be discharged to the assisted living facility with home health as the patient refused to be transferred to a [facility] facility. MEDICATIONS: He will be discharged with the following medications 1. Triple antibiotics applied to affected area daily. 2. Vitamin B12 1000 mg daily. 3. Augmentin 875 mg b.i.d. 4. Oxycodone 20 mg q. 12 p.r.n. for moderate pain (only 30 tablets). 5. Flomax 0.4 at bedtime. 6. Xarelto 15 mg daily. 7. Lopressor 50 mg b.i.d. 8. Pravastatin 40 mg at bedtime. 9. Aspirin 81 daily. 10. Neurontin 100 mg t.i.d. 11. Zaroxolyn 5 mg daily. 12. KCl 20 mEq daily. 13. Tradjenta 5 mg daily. Discontinue Glipizide. 14. Lantus 40 units subcutaneous every day. 15. Insulin, Humalog 14 units q. a.c. meals. Home health evaluation of the left lower extremity wound dressing changes and physical therapy. Als o, they need to monitor his glucose levels. FINAL DIAGNOSES: 1. Left lower extremity wounds with blistering and possible underlying cellulitis. 2. Lower extremity edema. 3. Xtrcn-do-ymouodj congestive heart failure exacerbation, both systolic and diastolic dysfunction. 4. Morbidly obese state. Weight loss is very important. His BMI is 45.8 5. Diabetes mellitus, poorly controlled, with a hemoglobin A1c of 12.2. 6. Anemia, likely anemia of chronic disease. 7. Acute on chronic renal insufficiency. Kidney function worsened secondary to diuretic therapy. 8. History of deep venous thrombosis of the lower extremity. Ultrasound now is negative. 9. Debilitated state. 10. Chronic pain, most notably his right shoulder. 11. Peripheral vascular disease. 12. B12 deficiency. PROGNOSIS: Long-term prognosis guarded. FOLLOWUP: The patient is to follow closely with his doctor within a week to follow up labs and mireille tor the wound. Again, I would like him to go to the [facility] facility, but the patient does not want to do t hat, so he will be discharged to the assisted living facility with home health. He definitely needs good wound care. If any change in condition to call 911 or go to nearest emergency department. DIET: ADA, 1800, 2 gram sodium. ACTIVITY: As tolerated with physical therapy to follow. Dictated By: RANCHO ALMEIDA/OMAR Conf#: [id number] DID#: [id number]
== END 2016-09-29 18:55 | disposition home or self-care (01) | DRG 602 ==
LOC: E/R 17:28 → PP2 19:53
PROVIDERS: ADMIT Internal Medicine; ATTEND Internal Medicine
DX: L03.116 Cellulitis of left lower limb (principal); I50.43 Acute on chronic combined systolic (congestive) and diastolic (congestive) heart failure; N17.9 Acute kidney failure, unspecified; E11.22 Type 2 diabetes mellitus with diabetic chronic kidney disease; E11.628 Type 2 diabetes mellitus with other skin complications; D51.9 Vitamin B12 deficiency anemia, unspecified; E11.65 Type 2 diabetes mellitus with hyperglycemia; Z68.42 Body mass index [BMI] 45.0-49.9, adult; I13.0 Hypertensive heart and chronic kidney disease with heart failure and stage 1 through stage 4 chronic kidney disease, or unspecified chronic kidney disease; E66.01 Morbid (severe) obesity due to excess calories; D64.9 Anemia, unspecified; G47.00 Insomnia, unspecified; K59.00 Constipation, unspecified; G89.29 Other chronic pain; D63.8 Anemia in other chronic diseases classified elsewhere; N18.2 Chronic kidney disease, stage 2 (mild); Z79.4 Long term (current) use of insulin; Z95.2 Presence of prosthetic heart valve; Z86.718 Personal history of other venous thrombosis and embolism
CPT/HCPCS: 36415; 71010; 76775; 80048; 80053; 81003; 82270; 82550; 82553; 82570; 82607; 82962; 83036; 83540; 83605; 83735; 83880; 84100; 84443; 84484; 85025; 85610; 85730; 87040; 87081; 93005; 93306; 93971; 96365; 96372; 96375; 97116; 97163; 97530; J1940; J1815; J2270; J2543; J3370; J3420; J7030; J7050

== ENCOUNTER 2016-10-15 12:28 | Emergency (ER) | payer MEDICARE, OTHER ==
[~2016-10-15] VITALS: Ht 182.9 cm; Wt 138.0 kg
[~2016-10-15 12:28] MED LIST changes: -ACET-2047 PO; +AMOX1TAB10 PO; -BENA5TAB2 PO; -CHOL100062 PO; +CHOL20003 PO; +CYAN500T46 PO; -FURO40TA4 PO; -GLIP-95 PO; -INSU100C SQ; +LANT3I SC; +LINA5TAB PO; -MECL12.574 PO; +METO5TAB65 PO; +NEOM28OI TP; +NOVO3I SC; -ONDA4TAB14 PO; -OXYC-279 PO; +OXYC-481 PO; -POLY17PO6 PO; +POTA20TA96 PO; -SENN-8 PO; -SITA100T8 PO
[2016-10-15 12:35] VITALS: Ht 182.9 cm; Wt 138.0 kg
--- NOTE | 2016-10-15 12:41 | ERA ---
ER Documentation Chief Complaint Date/Time DATE: 10/15/16 TIME: 12:40 Chief Complaint Left leg redness HPI The patient is a 75-year-old male, presenting to the ER because of chronic left leg wound. He was admitted and discharged about 2 weeks ago with Augmentin. He stated that he got better. However he noted discharge from the wound last night therefore he came to the ER. He denies any fever, chills, neck pain, chest pain, dyspnea, abdominal pain, vomiting, dysuria, diarrhea. He does not smoke or drink Past medical history: CAD, dyslipidemia, diabetes mellitus, chronic pain syndrome, hypertension, history of CHF, chronic kidney disease, peripheral vascular disease, B12 deficiency, chronic bilateral lower extremity edema Past surgical history: Mitral valve repair, appendectomy, shoulder arthroscopy ROS All systems reviewed and are negative except as per history of present illness. Medications Home Meds Active Scripts Clindamycin Hcl* (Clindamycin Hcl*) 300 Mg Capsule, 300 MG PO QID for 10 Days, CAP Prov:QUETA RICHMOND MD 10/15/16 Potassium Chloride* (Potassium Chloride*) 20 Meq Tablet.er, 20 MEQ PO DAILY for 30 Days, TAB.SA Prov:RANCHO HOPPER MD 09/29/16 Amoxicillin/Potassium Clav (Amox-Clav 875-125 mg Tablet) 875-125 mg Tab, 1 TAB PO BID for 7 Days, #20 TAB Prov:RANCHO HOPPER MD 09/29/16 Cyanocobalamin* (Vitamin B12*) 500 Mcg Tab, 1000 MCG PO DAILY for 30 Days, TAB Prov:RANCHO HOPPER MD 09/29/16 Insulin Glargine* (Lantus*) 100 Unit/Ml Soln, 40 UNIT SC QHS for 30 Days Prov:RANCHO HOPPER MD 09/29/16 Insulin Aspart* (Novolog Insulin Pen*) 100 Unit/Ml Soln, 14 UNIT SC WITH MEALS for 30 Days Prov:RANCHO HOPPER MD 09/29/16 Oxycodone Hcl* (IR) (Roxicodone*) 5 Mg Tab, 20 MG PO Q4H Y for SEVERE PAIN for 30 Days, #30 TAB Prov:RANCHO HOPPER MD 09/29/16 Reported Medications Metolazone* (Metolazone*) 5 Mg Tablet, 5 MG PO DAILY, TAB 09/24/16 Neomycin Calero/Bacitrac Zn/Poly (Triple Antibiotic Ointment) 28 Gm Oint...g., 28 GM TP DAILY APPLY TO AFFECTED AREA 09/24/16 Cholecalciferol (Vitamin D3) (VITAMIN D-3) 2,000 Unit Capsule, 2000 UNIT PO DAILY, CAP 09/24/16 Linagliptin (TRADJENTA) 5 Mg Tablet, 5 MG PO DAILY, TAB 09/24/16 Zolpidem Tartrate* (Zolpidem Tartrate*) 5 Mg Tablet, 5 MG PO QHS Y for INSOMNIA , #30 TAB 04/12/16 Rivaroxaban* (Xarelto*) 15 Mg Tablet, 15 MG PO WITH BREAKFAST DINNE, TAB 04/12/16 Tamsulosin Hcl* (Tamsulosin Hcl*) 0.4 Mg Cap.er.24h, 0.4 MG PO HS, CAP 04/12/16 Pravastatin Sodium* (Pravastatin Sodium*) 40 Mg Tablet, 40 MG PO HS, TAB 04/12/16 Metoprolol Tartrate* (Lopressor*) 50 Mg Tab, 50 MG PO BID, #60 TAB 04/12/16 Gabapentin* (Gabapentin*) 100 Mg Capsule, 100 MG PO TID, #90 CAP 04/12/16 Aspirin* (Aspirin* EC) 81 Mg Tablet.dr, 81 MG PO DAILY, TAB 04/12/16 Allergies Allergies: Coded Allergies: No Known Allergy (Unverified , 09/24/16) PMhx/Soc History of Surgery: Yes (Mitral valve repair (2007), Appendectomy (1969), Shoulder (2014)) Anesthesia Reaction: No Hx Neurological Disorder: Yes (Neuropathy) Hx Respiratory Disorders: No Hx Cardiac Disorders: Yes (Clots in legs, heart attacks (2007), HTN, high cholesterol) Hx Psychiatric Problems: No Hx Miscellaneous Medical Probl: Yes (DM<R shoulder sx,BLE DVT,htn,chronic pain) Hx Alcohol Use: No Hx Substance Use: No Hx Tobacco Use: No Physical Exam Vitals Vital Signs Date Time Temp Pulse Resp B/P Pulse Ox O2 Delivery O2 Flow Rate FiO2 10/15/16 13:00 98.3 95 18 135/59 95 Room Air 10/15/16 12:35 98.3 95 18 135/59 95 Physical Exam Const: No acute distress. Head: Atraumatic. Eyes: Normal Conjunctiva. ENT: Normal External Ears, Nose and Mouth. Neck: Full range of motion. No meningismus. Resp: Clear to auscultation bilaterally. Cardio: Regular rate and rhythm, no murmurs. Abd: Soft, non distended, normal bowel sounds, non tender. Skin: No petechiae or rashes. Back: No midline or flank tenderness. Ext: Bilateral leg edema, no calf tenderness. Left mid anterior tibia with a chronic skin lesion with yellowish discharge Neur: Awake and alert. No focal deficit Psych: Normal Mood and Affect. Results 24 hrs Current Medications Medications (Trade) Dose Ordered Sig/Fiorella Route PRN Reason Start Time Stop Time Status Last Admin Dose Admin Clindamycin HCl (Cleocin) 300 mg ONCE ONCE PO 10/15/16 13:00 10/15/16 13:02 DC Procedures/MDM MEDICAL MAKING DECISION: The patient is a 65-year-old male, presenting to the ER because of chronic left leg wound that is stable for outpatient treatment. The wound was cleaned with normal saline and dressed with Xeroform. He was treated with clindamycin in the ER. The differential diagnoses considered include but are not limited to cellulitis , abscess, DVT Departure Diagnosis: Primary Impression: Cellulitis Comments Consultation: I discussed the person with his physician Dr. Hopper, who in agreement with the outpatient treatment He was discharged with clindamycin and referral to amputation center in 1-2 days for further evaluation I discussed the findings with the patient. I advised the patient to follow-up with the primary physician in about 1-2 days, sooner if needed and return if any concern. QUETA RICHMOND MD Oct 15, 2016 12:41
[2016-10-15 13:00] VITALS: BP 135/59; PULSE 95; RESP 18; TEMP 98.3
[2016-10-15] MEDS ORDERED: CLINDAMYCIN 300 MG CAP PO ONE (13:00)
[2016-10-15] MEDS ORDERED: CLIN-73 PO (13:02)
[2016-10-15] MEDS ORDERED: FURO40TA4 PO (13:09)
[2016-10-15] MEDS ORDERED: BENA5TAB2 PO (13:09)
[2016-10-15] MEDS ORDERED: DIPH1TAB PO (13:10)
[2016-10-15] MEDS ORDERED: MECL-77 PO (13:11)
[2016-10-15] MEDS ORDERED: ONDA4TAB95 PO (13:13)
[2016-10-15] MEDS ORDERED: OXYC5CAP17 PO (13:18)
[2016-10-15] MEDS ORDERED: INSU100C SQ (13:21)
[2016-10-15] MEDS ORDERED: LINA5TAB PO (13:26)
[2016-10-15] MEDS ORDERED: CYAN500T46 PO (13:27)
[2016-10-15] MEDS ORDERED: CHOL100062 PO (13:27)
== END 2016-10-15 14:03 | disposition home or self-care (01) ==
LOC: E/R 12:28
DX: L03.116 Cellulitis of left lower limb (principal); I25.10 Atherosclerotic heart disease of native coronary artery without angina pectoris; E11.9 Type 2 diabetes mellitus without complications; I10 Essential (primary) hypertension; Z79.01 Long term (current) use of anticoagulants; Z79.4 Long term (current) use of insulin; Z79.84 Long term (current) use of oral hypoglycemic drugs; Z79.82 Long term (current) use of aspirin
CPT/HCPCS: 99283

== ENCOUNTER 2016-10-22 10:08 | Inpatient (IN) | payer MEDICARE, OTHER ==
[~2016-10-22] VITALS: Ht 182.9 cm; Wt 145.0 kg
[~2016-10-22 10:08] MED LIST changes: -AMOX1TAB10 PO; +BENA5TAB2 PO; +CHOL100062 PO; -CHOL20003 PO; +CLIN-73 PO; +DIPH1TAB PO; +FURO40TA4 PO; +INSU100C SQ; +MECL-77 PO; -NOVO3I SC; +ONDA4TAB95 PO; -OXYC-481 PO; +OXYC5CAP17 PO
[2016-10-22 10:16] VITALS: Ht 182.9 cm; Wt 145.0 kg
--- NOTE | 2016-10-22 11:13 | RADRPT ---
PROCEDURE: Chest x-ray CLINICAL INDICATION: Chest pain TECHNIQUE: Chest single view COMPARISON: 04/12/2016 FINDINGS: As before there post thoracotomy changes for cardiac valve replacement. Stable moderate cardiomegal y and mild atherosclerotic aortic calcification is seen. There is ongoing mild interstitial CHF. L inear atelectasis in the left lung base. Costophrenic angles are sharp. There is right shoulder pr osthesis. IMPRESSION: 1. Cardiomegaly with mild interstitial CHF. 2. Status post mitral valve replacement. 3. Linear left base atelectasis RPTAT: HH .Gurvinder Monsalve MD, MD Date Time Electronically viewed and signed by .Gurvinder Monsalve MD, MD on 10/22/2016 11:13 .W/
--- NOTE | 2016-10-22 12:08 | RADRPT ---
PROCEDURE: US Lower extremity Venous. CLINICAL INDICATION: Bilateral lower extremity edema TECHNIQUE: Multiple sonographic images of the bilateral lower extremity deep venous system was obt ained utilizing grayscale, color-flow, compressive sonography and doppler imaging with augmentation. The images were reviewed on a PACS workstation. COMPARISON: 09/24/2016 FINDINGS: There is normal compressibility and flow within the bilateral common femoral, femoral , posterior ti bial and popliteal veins. There is venous reflux noted in the right common femoral vein, femoral vein and popliteal vein. There is also reflux noted in the left popliteal vein. RPTAT: AA IMPRESSION: No sonographic evidence for deep venous thrombosis. Reflux noted in the right leg veins and left popliteal vein. .Jon Guerrero MD, MD Date Time Electronically viewed and signed by .Jon Guerrero MD, on 10/22/2016 12:08 .S/
[2016-10-22] MEDS ORDERED: GUAI-637 PO (12:25)
[2016-10-22 12:26] LABS: ADD SCAN DIFF NO
[2016-10-22 12:28] LABS: BASOPHIL # 0.1 10^3/ul (0.0-0.1); BASOPHILS % 0.6 % (0.0-2.0); EOSINOPHILS # 0.2 10^3/ul (0.0-0.5); HEMATOCRIT 32.1 % (42.0-52.0); HEMOGLOBIN 10.6 g/dl (14.0-18.0); LYMPHOCYTES # 0.7 10^3/ul (0.8-2.9); LYMPHOCYTES % 6.8 % (15.0-51.0); MEAN CORPUSCULAR HEMOGLOBIN 30.5 pg (29.0-33.0); MEAN CORPUSCULAR VOLUME 92.5 fl (82.0-101.0); MEAN PLATELET VOLUME 10.6 fl (7.4-10.4); MONOCYTE # 0.6 10^3/ul (0.3-0.9); MONOCYTES % 6.6 % (0.0-11.0); NEUTROPHIL # 7.9 10^3/ul (1.6-7.5); NEUTROPHILS % 83.5 % (39.0-77.0); PLATELET COUNT 170 10^3/UL (140-415); RED BLOOD COUNT 3.47 10^6/ul (4.70-6.10); RED CELL DISTRIBUTION WIDTH 13.3 % (11.5-14.5); WHITE BLOOD COUNT 9.5 10^3/ul (4.8-10.8)
[2016-10-22] MEDS ORDERED: INSU100C SQ (12:28)
[2016-10-22 12:44] LABS: INR 1.28; PROTIME 16.1 Sec (12.2-14.2); PT RATIO 1.3
[2016-10-22 12:45] LABS: PARTIAL THROMBOPLASTIN TIME 27.2 Sec (25.0-35.0)
[2016-10-22 15:14] LABS: ALANINE AMINOTRANSFERASE 33 IU/L (13-69); ALBUMIN 4.1 g/dl (3.3-4.9); ALBUMIN/GLOBULIN RATIO 1.41; ALKALINE PHOSPHATASE 78 IU/L (42-121); ANION GAP 16 (8-16); ASPARTATE AMINO TRANSFERASE 17 IU/L (15-46); BILIRUBIN,INDIRECT 0.3 mg/dl (0-1.1); BILIRUBIN,TOTAL 0.3 mg/dl (0.2-1.3); BLOOD UREA NITROGEN 57 mg/dl (7-20); CALCIUM 9.1 mg/dl (8.4-10.2); CARBON DIOXIDE 25 mmol/L (21-31); CHLORIDE 103 mmol/L (97-110); CREATININE 3.09 mg/dl (0.61-1.24); GLUCOSE 179 mg/dl (70-220); POTASSIUM 5.5 mmol/L (3.5-5.1); SODIUM 138 mmol/L (135-144)
[2016-10-22 15:45] LABS: TROPONIN-I < 0.012 ng/ml (0.00-0.12)
[2016-10-22] MEDS ORDERED: SOD CHLORIDE 0.9% 1,000 ML IV STA (16:45)
[2016-10-22] MEDS ORDERED: PIPER-TAZO 3.375 GM IV (PMX) 100 ML IVPB ONE (17:00)
[2016-10-22] MEDS ORDERED: VANCOMYCIN 1 GM (PMX) 250 ML IVPB SCH (17:00)
[2016-10-22 17:01] VITALS: TEMP 97.8
[2016-10-22] MEDS ORDERED: INSULIN REGULAR, HUMAN 100 UNIT/1 ML 3ML VIAL IV STA (17:08)
[2016-10-22] MEDS ORDERED: NA BICARBONATE 8.4% 50 ML SYG IV STA (17:08)
[2016-10-22] MEDS ORDERED: ONDANSETRON 4 MG INJ IV PRN ×2 (17:30→22:00)
[2016-10-22] MEDS ORDERED: ACETAMINOPHEN 325 MG TAB PO PRN ×2 (17:30→22:00)
[2016-10-22] MEDS ORDERED: DEXTROSE 50% 50 ML SYRINGE IV PRN ×3 (17:30→22:30)
--- NOTE | 2016-10-22 17:34 | ERA ---
ER Documentation Chief Complaint Date/Time DATE: 10/22/16 TIME: 17:31 Chief Complaint BIB RA FOR EVAL OF BILAT LEG REDNESS SWELLING AND WEAKNESS. HPI Patient is a 65-year-old male with diabetes who presents with bilateral leg redness and weakness. He has fluid in the legs as well. He came from a nursing facility. He was brought in by ambulance. He normally uses a wheelchair. He was here 1 week ago for the same but was discharged home at that time. His primary doctor is Dr. Covarrubias. ROS All systems reviewed and are negative except as per history of present illness. Medications Home Meds Active Scripts Potassium Chloride* (Potassium Chloride*) 20 Meq Tablet.er, 20 MEQ PO DAILY for 30 Days, TAB.SA Prov:RANCHO COVARRUBIAS MD 09/29/16 Insulin Glargine* (Lantus*) 100 Unit/Ml Soln, 40 UNIT SC QHS for 30 Days Prov:RANCHO COVARRUBIAS MD 09/29/16 Reported Medications Insulin Lispro (Humalog) 100 Unit/1 Ml Cartridge, 14 UNIT SQ AC MEALS 10/22/16 Guaifenesin* (Robitussin*) 100 Mg/5 Ml Syrup, 100 MG PO Q8 Y for COUGH, ML 10/22/16 Cholecalciferol* (Vitamin D3*) 1,000 Unit Tablet, 2000 UNIT PO DAILY, TAB 10/15/16 Cyanocobalamin* (Vitamin B12*) 500 Mcg Tab, 1000 MCG PO DAILY, TAB 10/15/16 Linagliptin (TRADJENTA) 5 Mg Tablet, 5 MG PO DAILY, TAB 10/15/16 Oxycodone Hcl* (IR) (Oxycodone Hcl*) 5 Mg Capsule, 20 MG PO Q12 Y for PAIN, CAP 10/15/16 Ondansetron Hcl* (Ondansetron Hcl*) 4 Mg Tablet, 4 MG PO Q6H Y for NAUSEA AND/ OR VOMITING, TAB 10/15/16 Meclizine Hcl* (Meclizine Hcl*) 25 Mg Tablet, 25 MG PO Q6 Y for DIZZINESS, TAB 10/15/16 Diphenoxylate HCl/Atropine (Lomotil 2.5-0.025 mg Tablet) 1 Each Tablet, 1 TAB PO Q12 Y for DIARRHEA, TAB 10/15/16 Furosemide* (Furosemide*) 40 Mg Tablet, 40 MG PO DAILY, TAB 10/15/16 Benazepril Hcl* (Benazepril Hcl*) 5 Mg Tablet, 5 MG PO DAILY, #30 TAB 10/15/16 Metolazone* (Metolazone*) 5 Mg Tablet, 5 MG PO DAILY, TAB 09/24/16 Neomycin Calero/Bacitrac Zn/Poly (Triple Antibiotic Ointment) 28 Gm Oint...g., 28 GM TP DAILY APPLY TO AFFECTED AREA 09/24/16 Zolpidem Tartrate* (Zolpidem Tartrate*) 5 Mg Tablet, 5 MG PO QHS Y for INSOMNIA , #30 TAB 04/12/16 Rivaroxaban* (Xarelto*) 15 Mg Tablet, 15 MG PO WITH BREAKFAST DINNE, TAB 04/12/16 Tamsulosin Hcl* (Tamsulosin Hcl*) 0.4 Mg Cap.er.24h, 0.4 MG PO HS, CAP 04/12/16 Pravastatin Sodium* (Pravastatin Sodium*) 40 Mg Tablet, 40 MG PO HS, TAB 04/12/16 Metoprolol Tartrate* (Lopressor*) 50 Mg Tab, 50 MG PO BID, #60 TAB 04/12/16 Gabapentin* (Gabapentin*) 100 Mg Capsule, 100 MG PO TID, #90 CAP 04/12/16 Aspirin* (Aspirin* EC) 81 Mg Tablet.dr, 81 MG PO DAILY, TAB 04/12/16 Discontinued Reported Medications Insulin Lispro (Humalog) 100 Unit/1 Ml Cartridge, 14 UNIT SQ AC MEALS 10/15/16 Cholecalciferol (Vitamin D3) (VITAMIN D-3) 2,000 Unit Capsule, 2000 UNIT PO DAILY, CAP 09/24/16 Linagliptin (TRADJENTA) 5 Mg Tablet, 5 MG PO DAILY, TAB 09/24/16 Discontinued Scripts Clindamycin Hcl* (Clindamycin Hcl*) 300 Mg Capsule, 300 MG PO QID for 10 Days, CAP Prov:QUETA RICHMOND MD 10/15/16 Amoxicillin/Potassium Clav (Amox-Clav 875-125 mg Tablet) 875-125 mg Tab, 1 TAB PO BID for 7 Days, #20 TAB Prov:RANCHO COVARRUBIAS MD 09/29/16 Cyanocobalamin* (Vitamin B12*) 500 Mcg Tab, 1000 MCG PO DAILY for 30 Days, TAB Prov:LOBEL,RANCHO MD 09/29/16 Insulin Aspart* (Novolog Insulin Pen*) 100 Unit/Ml Soln, 14 UNIT SC WITH MEALS for 30 Days Prov:RANCHO COVARRUBIAS MD 09/29/16 Oxycodone Hcl* (IR) (Roxicodone*) 5 Mg Tab, 20 MG PO Q4H Y for SEVERE PAIN for 30 Days, #30 TAB Prov:RANCHO COVARRUBIAS MD 09/29/16 Allergies Allergies: Coded Allergies: No Known Allergy (Unverified , 10/22/16) PMhx/Soc History of Surgery: Yes (Mitral valve repair (2007), Appendectomy (1969), Shoulder (2014)) Anesthesia Reaction: No Hx Neurological Disorder: Yes (Neuropathy) Hx Respiratory Disorders: No Hx Cardiac Disorders: Yes (Clots in legs, heart attacks (2007), HTN, high cholesterol) Hx Psychiatric Problems: No Hx Miscellaneous Medical Probl: Yes (DM<R shoulder sx,BLE DVT,htn,chronic pain) Hx Alcohol Use: No Hx Substance Use: No Hx Tobacco Use: No Smoking Status: Former smoker FmHx Family History: diabetes Physical Exam Vitals Vital Signs Date Time Temp Pulse Resp B/P Pulse Ox O2 Delivery O2 Flow Rate FiO2 10/22/16 17:01 97.8 78 18 134/69 96 Room Air 10/22/16 13:00 97.9 79 19 124/58 99 Room Air 10/22/16 10:30 96.4 60 19 138/60 96 Room Air 10/22/16 10:16 96.4 60 19 138/60 96 Physical Exam Const: Mild distress Head: Atraumatic Eyes: Normal Conjunctiva ENT: Normal External Ears, Nose and Mouth. Neck: Full range of motion..~ No meningismus. Resp: Clear to auscultation bilaterally Cardio: Regular rate and rhythm, no murmurs Abd: Soft, non tender, non distended. Normal bowel sounds Skin: Redness to the lower extremity's bilaterally with skin breakdown Back: No midline or flank tenderness Ext: Pitting edema bilateral lower extremities Neur: Awake and alert Psych: Normal Mood and Affect Result Diagram: 10/22/16 1219 10/22/16 1425 Results 24 hrs Laboratory Tests Test 10/22/16 12:19 10/22/16 14:25 White Blood Count 9.510^3/ul Red Blood Count 3.4710^6/ul Hemoglobin 10.6g/dl Hematocrit 32.1% Mean Corpuscular Volume 92.5fl Mean Corpuscular Hemoglobin 30.5pg Mean Corpuscular Hemoglobin Concent 33.0g/dl Red Cell Distribution Width 13.3% Platelet Count 50715^3/UL Mean Platelet Volume 10.6fl Neutrophils % 83.5% Lymphocytes % 6.8% Monocytes % 6.6% Eosinophils % 2.0% Basophils % 0.6% Nucleated Red Blood Cells % 0.0/100WBC Neutrophils # 7.910^3/ul Lymphocytes # 0.710^3/ul Monocytes # 0.610^3/ul Eosinophils # 0.210^3/ul Basophils # 0.110^3/ul Nucleated Red Blood Cells # 0.010^3/ul Prothrombin Time 16.1Sec Prothrombin Time Ratio 1.3 INR International Normalized Ratio 1.28 Activated Partial Thromboplast Time 27.2Sec Sodium Level 138mmol/L Potassium Level 5.5mmol/L Chloride Level 103mmol/L Carbon Dioxide Level 25mmol/L Anion Gap 16 Blood Urea Nitrogen 57mg/dl Creatinine 3.09mg/dl Glucose Level 179mg/dl Calcium Level 9.1mg/dl Total Bilirubin 0.3mg/dl Direct Bilirubin 0.00mg/dl Indirect Bilirubin 0.3mg/dl Aspartate Amino Transf (AST/SGOT) 17IU/L Alanine Aminotransferase (ALT/SGPT) 33IU/L Alkaline Phosphatase 78IU/L Troponin I < 0.012ng/ml Total Protein 7.0g/dl Albumin 4.1g/dl Globulin 2.90g/dl Albumin/Globulin Ratio 1.41 Current Medications Medications (Trade) Dose Ordered Sig/Fiorella Route PRN Reason Start Time Stop Time Status Last Admin Dose Admin Vancomycin HCl 250 ml @ 125 mls/hr ONCE IVPB 10/22/16 17:00 10/22/16 18:59 Piperacillin Sod/ Tazobactam Sod 100 ml @ 200 mls/hr ONCE ONCE IVPB 10/22/16 17:00 10/22/16 17:29 DC Sodium Chloride (NS) 1,000 ml @ 1,000 mls/hr Q1H STAT IV 10/22/16 16:45 10/22/16 17:44 Ondansetron HCl (Zofran Inj) 4 mg ER BRIDGE PRN IV NAUSEA AND/OR VOMITING 10/22/16 17:30 10/23/16 17:29 Acetaminophen (Tylenol Tab) 650 mg ER BRIDGE PRN PO MILD PAIN/FEVER 10/22/16 17:30 10/23/16 17:29 Sodium Bicarbonate (Na Bicarb 8.4% Syg) 50 ml ONCE STAT IV 10/22/16 17:08 10/22/16 17:10 DC Insulin Human Regular (Humulin R) 10 unit ONCE STAT IV 10/22/16 17:08 10/22/16 17:10 DC Dextrose (D50w Syringe) ONCE PRN IV POC BLOOD GLUCOSE <250 MG/DL 10/22/16 17:30 Procedures/MDM EKG read by me: Rate/Rhythm: Junctional rhythm at a normal rate Intervals: Normal Impression: Junctional rhythm without ischemia Patient is a 65-year-old male presents with bilateral lower extremity cellulitis. The patient will be given back vancomycin and Zosyn. I am concerned because his creatinine has increased to 3.09 which is as high as I have seen it upon review of old medical records. He also has an elevated BUN of 57. He has hyperkalemia of 5.5 and this will need treatment with bicarbonate and insulin and glucose. The patient has anemia with hemoglobin 10.6 but does not require transfusion. At this time I doubt sepsis. I spoke with Dr. Covarrubias who will admit the patient to a telemetry bed. Observation Note: Time: 4 hours Family Hx: Positive for diabetes Evaluation: Multiple exams showed improving symptoms and no evidence of clinical decompensation. Departure Diagnosis: Primary Impression: ARF (acute renal failure) Qualified Code: N17.9 - Acute renal failure, unspecified acute renal failure type Additional Impressions: Cellulitis Qualified Code: L03.119 - Cellulitis of lower extremity, unspecified laterality Hyperkalemia Condition: SWAPNIL Sagastume MD Oct 22, 2016 17:34
[2016-10-22 17:41] LABS: CREATINE KINASE 136 IU/L (23-200)
[2016-10-22 17:55] LABS: TROPONIN-I < 0.012 ng/ml (0.00-0.12)
[2016-10-22 18:56] LABS: CK-MB 1.33 ng/ml (0.0-2.4)
[2016-10-22 21:03] VITALS: PULSE 88
[2016-10-22 21:26] VITALS: BP 154/67; RESP 20
[2016-10-22] MEDS: SOD CHLORIDE 0.9% 1,000 ML IV SCH (21:32)
[2016-10-22] MEDS ORDERED: DOCUSATE SODIUM 100 MG CAP PO PRN (22:00)
[2016-10-22] MEDS ORDERED: MAGNESIUM HYDROXIDE 30ML CUP PO PRN (22:00)
[2016-10-22] MEDS ORDERED: ZOLPIDEM 5 MG TAB PO PRN (22:00)
[2016-10-22] MEDS ORDERED: NITROGLYCERIN (SL) 0.4 MG TAB SL PRN (22:00)
[2016-10-22] MEDS ORDERED: HYDROmorphONE 1 MG/ML SYG IV PRN (22:00)
[2016-10-22] MEDS ORDERED: NACL 0.9% 3 ML SYG IV SCH (22:00)
[2016-10-22] MEDS ORDERED: VANCOMYCIN IV PER PHARMACY XX SCH (22:00)
[2016-10-22] MEDS ORDERED: oxyCODONE 5 MG TAB PO PRN (22:00)
[2016-10-22] MEDS ORDERED: GLUCOSE GEL 15 GRAM TUBE PO PRN ×2 (22:30)
[2016-10-22] MEDS ORDERED: GLUCOSE GEL 15 GRAM TUBE BUCCAL PRN (22:30)
[2016-10-22] MEDS ORDERED: GLUCAGON 1 MG INJ IM PRN (22:30)
[2016-10-22] MEDS ORDERED: VANCOMYCIN 1 GM in NS 250 ML IVPB ONE (23:00)
[2016-10-22 23:39] LABS: CREATINE KINASE 119 IU/L (23-200)
[2016-10-23] VITALS (13 sets, daily range): BP systolic 105–161; BP diastolic 58–71; PULSE 75–89; RESP 16–20
[2016-10-23 00:28] LABS: CK-MB 1.25 ng/ml (0.0-2.4); TROPONIN-I < 0.012 ng/ml (0.00-0.12)
[2016-10-23] MEDS: PANTOPRAZOLE (EC) 40 MG TAB PO SCH (06:31)
[2016-10-23 07:16] LABS: ADD SCAN DIFF NO
[2016-10-23 07:33] LABS: ABNORMAL IP MESSAGE 1; BASOPHIL # 0.1 10^3/ul (0.0-0.1); BASOPHILS % 0.8 % (0.0-2.0); EOSINOPHILS # 0.3 10^3/ul (0.0-0.5); EOSINOPHILS % 4.1 % (0.0-7.0); HEMATOCRIT 31.5 % (42.0-52.0); HEMOGLOBIN 10.3 g/dl (14.0-18.0); LYMPHOCYTES # 0.6 10^3/ul (0.8-2.9); LYMPHOCYTES % 8.3 % (15.0-51.0); MEAN CORPUSCULAR HEMOGLOBIN 30.5 pg (29.0-33.0); MEAN CORPUSCULAR HGB CONC 32.7 g/dl (32.0-37.0); MEAN CORPUSCULAR VOLUME 93.2 fl (82.0-101.0); MONOCYTE # 0.6 10^3/ul (0.3-0.9); MONOCYTES % 9.6 % (0.0-11.0); NEUTROPHIL # 5.1 10^3/ul (1.6-7.5); NEUTROPHILS % 76.7 % (39.0-77.0); PLATELET COUNT 173 10^3/UL (140-415); RED BLOOD COUNT 3.38 10^6/ul (4.70-6.10); RED CELL DISTRIBUTION WIDTH 13.6 % (11.5-14.5); WHITE BLOOD COUNT 6.6 10^3/ul (4.8-10.8)
[2016-10-23] MEDS: RIVAROXABAN 15 MG TABLET PO SCH ×2 (07:49→17:50)
[2016-10-23] MEDS: INSULIN ASPART [NOVOLOG] 3 ML PEN SC SCH ×4 (07:54→20:53)
[2016-10-23 07:59] LABS: ALBUMIN 3.9 g/dl (3.3-4.9); ALBUMIN/GLOBULIN RATIO 1.39; BILIRUBIN,INDIRECT 0.4 mg/dl (0-1.1); BILIRUBIN,TOTAL 0.4 mg/dl (0.2-1.3); CALCIUM 9.2 mg/dl (8.4-10.2); CREATININE 2.4 mg/dl (0.61-1.24); MAGNESIUM 2.3 mg/dl (1.7-2.5); TOTAL PROTEIN 6.7 g/dl (6.1-8.1)
[2016-10-23 08:27] LABS: THYROID STIMULATING HORMONE 0.675 MIU/L (0.465-4.680)
[2016-10-23] MEDS ORDERED: GABAPENTIN 100 MG CAP PO SCH (09:00)
[2016-10-23] MEDS ORDERED: HEPARIN 5,000 UNIT/0.5 ML VIAL SC SCH (09:00)
[2016-10-23] MEDS: CYANOCOBALAMIN 500 MCG TAB PO SCH (09:01)
[2016-10-23] MEDS: ASPIRIN (EC) 81 MG TAB PO SCH (09:01)
[2016-10-23] MEDS: PIPER-TAZO 2.25 GM (PMX) 50 ML IVPB SCH ×3 (09:01→23:40)
[2016-10-23] MEDS: LINAGLIPTIN 5 MG TABLET PO SCH (09:01)
[2016-10-23] MEDS: CHOLECALCIFEROL 2,000 UNIT CAP PO SCH (09:01)
[2016-10-23] MEDS: METOPROLOL 50 MG TAB PO SCH ×2 (09:02→20:55)
[2016-10-23] MEDS: SOD CHLORIDE 0.9% 1,000 ML IV SCH ×2 (09:57→17:53)
[2016-10-23] MEDS: GABAPENTIN 100 MG CAP PO SCH ×2 (13:13→20:54)
--- NOTE | 2016-10-23 14:19 | HP ---
DATE OF ADMISSION: 10/22/2016 REASON FOR ADMISSION: 1. Left lower extremity cellulitis, recurrent. 2. Acute on chronic renal failure. 3. Hyperkalemia. HISTORY OF PRESENT ILLNESS: The patient is an unfortunate 65-year-old, morbidly obese, [place] se[place] with a history of hypertension, diabetes mellitus, chronic pain, status post right shoulder rotat or cuff repair surgery, a history of bilateral lower extremity deep venous thromboses, on Xarelto, o verall, very debilitated, not much ambulatory, per history. He also has diabetes neuropathy. He cu rrently resides at [facility]. The patient also has a history of con gestive heart failure, with an estimated ejection fraction around 40% on recent echocardiogram. He was under my care a month ago, where he was admitted on 09/24/2016 for basically the same. He had b listering of the left lower extremity and cellulitis. The patient, again, was started on oral antib iotic, with no improvement, and he presented to the ER now with the second time to [facility] with ongoing erythema of the left lower extremity. In the ER he was evaluated and he wa s noted to have worsening kidney function, with a creatinine of 3.09 and potassium was 5.5. In teri tion, he had marked erythema of the left lower extremity, consistent with cellulitis, and he has ope n skin areas in the left lower extremity. We decided to admit the patient for further care. The pat ient was started on broad-spectrum antibiotics with vancomycin and Zosyn. Overnight I started him o n gentle hydration because of his renal insufficiency. Otherwise he denies any chest pain or shortn ess of breath. Denies any fever or chills. He does report that he is unable to stand or walk becau se his legs are giving up, and then he said that he is able to walk, so it is not clear completely h ow strong he is. He was seen by physical therapy on his previous admission last month. He was able to ambulate with them to some degree. The patient is admitted for further care. PAST MEDICAL HISTORY: Includes hypertension, diabetes mellitus, chronic pain, morbidly obese state, a history of DVT in the bilateral lower extremities, a history of right shoulder surgery, periphera l edema, status post mitral valve surgery repair, a history of CHF with an EF of 40%, so he has both systolic and diastolic dysfunction and heart failure. ALLERGIES: NO KNOWN DRUG ALLERGIES. SURGICAL HISTORY: Mitral valve replacement surgery, appendectomy in 1969, right shoulder reconstruc tive surgery a year and a half ago. SOCIAL HISTORY: He is x1. He has 2 grandkids. The patient currently resides at [facility]. His orthopedic doctor is Dr. Johann Lorenz, who operated on his right shoulder. Previously resided at [facility]. MEDICATIONS: Include the followin. Flomax 0.4 at bedtime. 2. Xarelto 50 mg daily. 3. Benazepril 5 mg daily. 4. Lopressor 50 mg b.i.d. 5. Pravastatin 40 mg at bedtime. 6. Aspirin 81 mg daily. 7. Gabapentin 100 t.i.d. 8. Oxycodone 20 mg q.12. 9. Zolpidem 5 mg at bedtime p.r.n. 10. Lasix 40 mg daily. 11. Metolazone 5 mg daily. 12. KCl 20 mEq daily. 13. Robitussin p.r.n. for cough. 14. Lomotil p.r.n. for diarrhea. 15. Meclizine 25 q.6 p.r.n. for dizziness 16. Zofran p.r.n. 17. Insulin Lantus 40 units at bedtime and Lispro 14 units subcutaneous before meals. 18. Tradjenta 5 mg daily. 19. Triple antibiotic cream as directed. 20. Vitamin D3 2000 daily. 21. Vitamin B12 1000 daily. REVIEW OF SYSTEMS: See HPI. The patient denies any lower extremity pain overall, but when I touche d him, he reports pain in the legs. PHYSICAL EXAMINATION: VITAL SIGNS: The patient has been afebrile since admission. Temperature 97.8, pulse 77, respiration s 18, blood pressure 105/68, saturations 93%. GENERAL: The patient is morbidly obese. HEENT: Normocephalic, atraumatic. The patient is pale. NECK: No JVD. CARDIOVASCULAR: S1 and S2. LUNGS: Decreased bilaterally. ABDOMEN: Soft, morbidly obese. EXTREMITIES: Trace edema, lower extremities. He has multiple spots of erythema below the left knee and in the arterial aspect of the tibia. On the posterior aspect there are areas of open skin, all very tender to palpation. The patient is very sensitive to touch. LABORATORY: White count is 6.6, hemoglobin 10.3, hematocrit 32, platelet count of 173. Neutrophils 77%, lymphocytes 8%. Chemistry: Sodium is 142, potassium 5.0, chloride 106, bicarbonate 26, BUN i s 44, creatinine improved to 2.4. Glucose 137. Last glucose levels 164 and 148. LFTs are all norm al. AST 16, ALT 25. Troponin in the ER was negative. Albumin 3.9. TSH is 0.67. INR was 1.28. T he patient does take Xarelto. Chest x-ray done in the ER does show cardiomegaly with mild interstitial CHF, status post mitral león ve replacement. Linear left basilar atelectasis. The patient's venous ultrasound of the lower extre mities shows no sonographic evidence of a DVT. Reflux noted in the right leg vein and left popliteal vein. Looking at the imaging tests that were done last month, including a renal ultrasound, shows an unremarkable renal ultrasound. No hydronephrosis or obstructive uropathy was identified. Venous study at that time also shows no DVT and a chest x-ray at that time shows also the same; mild diffu se pulmonary vascular congestion. Arterial ultrasound was not done. EKG showed accelerated junctio nal rhythm, with occasional PVCs at 83 beats per minute. ASSESSMENT AND PLAN: This is an unfortunate 65-year-old, morbidly obese male with a histo ry of diabetes mellitus, chronic pain, peripheral vascular disease, bilateral lower extremity DVT in the past, hypertension, diabetic neuropathy and osteoarthritis, who presents with acute renal failu re and left lower extremity cellulitis. 1. Left lower extremity cellulitis, with areas of erythema in a patient who is diabetic with open s kin. The patient was started on broad-spectrum antibiotics with vancomycin and Zosyn. Will obtain a n arterial ultrasound to evaluate the circulation. Pain control will be provided and we will follow . 2. Acute renal failure, likely from over-diuresis. Currently there is no evidence of CHF, so will hydrate him gently with IV fluids and monitor for any evidence of fluid overload state. Kidney func tion is improving. Baseline creatinine is around 1.6. Recent renal ultrasound was done last month and did not show any evidence of obstruction or any acute pathology. 3. Diabetes mellitus. Continue Lantus and Levemir. Titrate medication up. Continue Tradjenta. 4. Morbidly obese state. Weight loss is very important. 5. History of deep venous thrombosis of the lower extremity, with an overall sedentary life. Lois yinge Xarelto for anticoagulation. This is also renally dosed. 6. Chronic pain. Make sure the patient is comfortable at the times. May put him on routine opioid s, as that is what he was taking previously. Will avoid nephrotoxic medications. 7. Anemia, likely anemia of chronic disease. Previous admission workup revealed B12 deficiency. I bill levels were normal. 8. Diabetic neuropathy. Continue Neurontin or Lyrica. 9. Physical therapy will be obtained to evaluate the strength. 10. Continue aspirin for cardiac protection. 11. History of benign prostatic hypertrophy. Continue Flomax. 12. The patient will be placed on Protonix for GI prophylaxis. Will follow the patient closely. The patient's previous hemoglobin A1c on 09/25/2016 was quite high at 12.2. Again, will try to keep glucose between 100 to 150. We will follow. Dictated By: RANCHO ALMEIDA/OMAR Conf#: [id number] DID#: [id number]
[2016-10-23] MEDS ORDERED: INSULIN GLARGINE [LANtus] 3 ML PEN SC SCH ×2 (20:00)
[2016-10-23] MEDS: TAMSULOSIN (SR) 0.4 MG CAP PO SCH (20:54)
[2016-10-23] MEDS: oxyCODONE 5 MG TAB PO PRN (21:03)
[2016-10-24] VITALS (13 sets, daily range): BP systolic 124–148; BP diastolic 59–70; PULSE 69–85; RESP 16–20
[2016-10-24] MEDS: PANTOPRAZOLE (EC) 40 MG TAB PO SCH (05:10)
[2016-10-24] MEDS ORDERED: VANCOMYCIN 2 GM in SOD CHLORIDE 0.9% 500 ML IVPB SCH (06:00)
[2016-10-24 07:13] LABS: ADD SCAN DIFF NO
[2016-10-24 07:16] LABS: BASOPHIL # 0.1 10^3/ul (0.0-0.1); BASOPHILS % 0.9 % (0.0-2.0); EOSINOPHILS # 0.4 10^3/ul (0.0-0.5); EOSINOPHILS % 5.8 % (0.0-7.0); HEMATOCRIT 32.3 % (42.0-52.0); HEMOGLOBIN 10.3 g/dl (14.0-18.0); LYMPHOCYTES % 13.9 % (15.0-51.0); MEAN CORPUSCULAR HGB CONC 31.9 g/dl (32.0-37.0); MEAN CORPUSCULAR VOLUME 94.2 fl (82.0-101.0); MEAN PLATELET VOLUME 10.8 fl (7.4-10.4); MONOCYTE # 0.7 10^3/ul (0.3-0.9); MONOCYTES % 9.8 % (0.0-11.0); NEUTROPHIL # 4.9 10^3/ul (1.6-7.5); PLATELET COUNT 175 10^3/UL (140-415); RED BLOOD COUNT 3.43 10^6/ul (4.70-6.10); RED CELL DISTRIBUTION WIDTH 13.5 % (11.5-14.5)
[2016-10-24 07:48] LABS: CALCIUM 8.9 mg/dl (8.4-10.2); CREATININE 2.03 mg/dl (0.61-1.24); POTASSIUM 4.8 mmol/L (3.5-5.1)
[2016-10-24 07:55] LABS: PHOSPHORUS 3.4 mg/dl (2.5-4.9)
[2016-10-24] MEDS: INSULIN ASPART [NOVOLOG] 3 ML PEN SC SCH ×4 (07:55→21:31)
[2016-10-24] MEDS: RIVAROXABAN 15 MG TABLET PO SCH ×2 (08:02→19:03)
[2016-10-24] MEDS: CHOLECALCIFEROL 2,000 UNIT CAP PO SCH (08:39)
[2016-10-24] MEDS: CYANOCOBALAMIN 500 MCG TAB PO SCH (08:39)
[2016-10-24] MEDS: GABAPENTIN 100 MG CAP PO SCH ×3 (08:40→21:28)
[2016-10-24] MEDS: LINAGLIPTIN 5 MG TABLET PO SCH (08:40)
[2016-10-24] MEDS: ASPIRIN (EC) 81 MG TAB PO SCH (08:40)
[2016-10-24] MEDS: METOPROLOL 50 MG TAB PO SCH ×2 (08:41→21:28)
--- NOTE | 2016-10-24 09:50 | RADRPT ---
PROCEDURE: US Lower Extremity Arteries. CLINICAL INDICATION: Pain, left heel ulcer TECHNIQUE: Multiple longitudinal and transverse images of the bilateral lower extremity arteries w ere obtained with whitley scale and color Doppler imaging. COMPARISON: No prior studies are available for comparison. FINDINGS: RIGHT: CFA91.8 cm/sec LHIQ942.4 cm/sec IFKU675.1 cm/sec PRVS933.9 cm/sec POP39.8 cm/sec PTA50.6 cm/sec DPA51.1 cm/sec LEFT: DXW210.9 cm/sec ZNWV203.9 cm/sec LQRT877.2 cm/sec CBEL382.1 cm/sec POP51.9 cm/sec YQB674.1 cm/sec DPA27.8 cm/sec Calcific plaque seen throughout the bilateral lower extremity arterial system. Triphasic wave forms are noted within the bilateral common femoral and superficial femoral arteries with biphasic wave f orms in the popliteal arteries and distal. IMPRESSION: 1. Diffuse ossific plaque formation without evidence for hemodynamically significant stenosis or oc clusion. 2. Triphasic waveforms within the bilateral common femoral and superficial femoral arteries. Bipha sic waveforms within the bilateral popliteal arteries and distally. RPTAT:HH .Ashley Acosta MD, MD Date Time Electronically viewed and signed by .Ashley Acosta MD, on 10/24/2016 09:49 .G/
[2016-10-24] MEDS ORDERED: LORAZEPAM 2 MG INJ IV PRN (11:30)
[2016-10-24] MEDS: oxyCODONE (CR) 10 MG TAB [oxyCONTIN] PO SCH ×2 (11:39→21:00)
[2016-10-24] MEDS ORDERED: PIPER-TAZO 2.25 GM (PMX) 50 ML IVPB SCH (14:00)
--- NOTE | 2016-10-24 14:45 | PN ---
DATE: 10/24/2016 SUBJECTIVE: Yesterday, I received a call that the patient is refusing IV antibiotics and only wants to take oral antibiotics for his cellulitis. I informed the nurse to tell the patient that he fail ed oral medications at home and that is why he is in the hospital for IV antibiotics. I just came t o see him right now. Apparently, he is getting his IV antibiotics and the patient appears to be lasha y upset, stating that I am treating him without his consent. I told him that we can go through his treatment plan and go over his medication list and see if he has any concerns. I asked him if he lamb s any questions and patient just is being upset and stating that he wants possibly a different docto r, and basically does not even let me help him. I asked if it is the pain. He did not want to talk to me. PHYSICAL EXAMINATION: VITAL SIGNS: Temperature 97.9, pulse 85, respirations 18, blood pressure 129/59, saturation is 94%. GENERAL: The patient is in no acute distress. EXTREMITIES: Left lower extremity erythema is much improved with current treatment plan. Otherwise , I could not examine the patient further. LABORATORY DATA: White count is 7, hemoglobin 10.3, hematocrit 32, platelet count is 175, neutrophi ls 69%, lymphocytes 14%. Chemistry: Sodium 140, potassium 4.8, chloride 106, bicarbonate 27, BUN i s 28, creatinine 2.03, glucose of 133. Last glucose level is 140. INR is 1.28. Arterial ultrasoun d shows diffuse ossific plaque formation without evidence for hemodynamically significant stenosis o r occlusion. Triphasic waveforms within the bilateral common femoral and superficial femoral arteri es, biphasic waveforms within the bilateral popliteal arteries and distally. MEDICATIONS: 1. Vancomycin IV, dose per pharmacy. 2. Zosyn IV, dose per pharmacy. 3. Flomax 0.4 at bedtime. 4. Lantus 20 units daily. 5. Gabapentin 200 mg t.i.d. 6. Aspirin 81 mg daily. 7. Vitamin D 2000 units daily. 8. Vitamin B12 1000 daily. 9. Tradjenta 5 mg daily. 10. Lopressor 50 mg b.i.d. 11. Xarelto 15 mg daily at dinner. 12. Insulin aspart per sliding scale. 13. Protonix 40 mg daily. 14. Zofran p.r.n. 15. Nitroglycerin p.r.n. 16. Tylenol p.r.n. 17. ____ p.r.n. 18. Milk of magnesia p.r.n. 19. Ambien p.r.n. 20. Vancomycin dose per pharmacy. 21. Dilaudid p.r.n. 22. Oxycodone 10 mg p.o. q.4 p.r.n. 23. Dilaudid 0.5 IV q.4 p.r.n. 24. Normal saline at 70 mL an hour. ASSESSMENT AND PLAN: This is a very unfortunate 65-year-old morbidly obese male with hist ory of diabetes mellitus, chronic pain, peripheral vascular disease, bilateral lower extremity deep venous thrombosis in the past, hypertension, diabetic neuropathy, osteoarthritis, who presented with acute renal failure and left lower extremity cellulitis. 1. Left lower extremity cellulitis, much improved with vancomycin and Zosyn. I would continue that . I did ask Infectious Disease to follow. Infectious Disease consult to follow. Pain control to el reddy provided. Hopefully, nurse will communicate with me regarding patient's concerns, pain, etc. 2. Acute renal failure, improving as we held his diuretics and placed him on fluid challenge. Crea tinine continues to improve. Monitor for fluid overload state. 3. Diabetes mellitus. Patient is now on Lantus 20 units daily, insulin sliding scale and Tradjenta . Accu-Cheks are as follows: 140, 231, and 201. May increase Lantus slightly up to 24 units and monitor. 4. The patient is on Xarelto as patient the patient has history of previous deep venous thrombosis and the patient is overall nonambulatory. 5. Physical therapy as tolerated, it patient will allow. 6. Anemia. The patient with B12 deficiency and likely anemia of chronic disease. H and H remain s table. 7. Benign prostatic hypertrophy. Continue Flomax. 8. Diabetic neuropathy. I increased the patient's Neurontin from 100 mg t.i.d. to 200 t.i.d. 9. Continue aspirin for cardiac protection. 10. Continue stool softeners. The patient is on opioid. The patient is welcome to discuss his concerns with possible case resolution specialist, or social work nurse, or [place] his physician if wishes. In the meantime, continue current care plan. DISPOSITION: Hopefully, to a custodial facility as the patient needs more care. We will foll ow. Dictated By: RANCHO ALMEIDA/OMAR Conf#: [id number] DID#: [id number]
[2016-10-24] MEDS ORDERED: INSULIN GLARGINE [LANtus] 3 ML PEN SC SCH (20:00)
[2016-10-24] MEDS: TAMSULOSIN (SR) 0.4 MG CAP PO SCH (21:28)
[2016-10-24] MEDS: CEFTRIAXONE 1 GM/50 ML (PMX) 50 ML IVPB SCH (21:39)
--- NOTE | 2016-10-24 22:20 | PN ---
DATE: 10/24/2016 SUBJECTIVE: No acute changes. The patient is alert, feels better, looks comfortable. No fevers. WBC today 7. No shift, no bands. BUN 28, creatinine 2.03. MICROBIOLOGY: Blood culture on 09/24 had been negative. ANTIMICROBIALS: The patient is on: 1. Vancomycin. 2. Zosyn. PHYSICAL EXAMINATION: GENERAL: This is a morbidly obese elderly man who is alert, in no distress. HEENT: Head atraumatic, normocephalic. Sclerae anicteric. Buccal mucosa dry. NECK: Obese. CHEST: Rise symmetrical. Breath sounds clear. HEART: S1, S2. ABDOMEN: Soft. Bowel sounds present. EXTREMITIES: Bilateral lower extremity edema, erythema, left more than right, improving. ASSESSMENT: 1. Left lower extremity cellulitis, improving. 2. Bilateral lower extremity chronic venous stasis. 3. Morbid obesity. 4. Acute renal failure. PLAN: The patient is improving on current antimicrobials. Continue keeping lower extremities elevated. Dictated By: ENOCH YUN VOCATIONAL NURSE for AME DIEHL/OMAR Conf#: [id number] DID#: [id number] MTDD
--- NOTE | 2016-10-24 23:21 | CONS ---
DATE OF ADMISSION: 10/22/2016 DATE OF CONSULTATION: 10/23/2016 INFECTIOUS DISEASE CONSULTATION DICTATING FOR: Dr. Segundo Bianchi. REQUESTING PHYSICIAN: Dr. Chaitanya Hopper. HISTORY OF PRESENT ILLNESS: The patient is a 65-year-old white male who was admitted on 10/23/2016 from [facility] with a chief complaint of bilateral leg swelling and weakness. He has had at least 3 previous admissions for cellulitis and on the last, he was discharged 1 week prior to admiss critical access hospital. At that time, he was taking clindamycin and Augmentin orally. He previously has had blisterin g of his lower extremity and cellulitis due to edema, aggravated by having a past history of bilater al deep vein thrombosis, ischemic cardiomyopathy with a 40% ejection fraction, congestive heart fail ure and a mitral valve repair. The patient denies fever or chills, but describes weakness and malai se. Upon arrival, his white count was 6600, BUN 44, creatinine 2.4 and a potassium of 5.0. The pat ient was begun treatment with vancomycin and Zosyn intravenously and put at bed rest. PAST MEDICAL HISTORY: Deep vein thrombosis, diabetes mellitus, hypertension, obesity and congestive heart failure. PAST SURGICAL HISTORY: Consisted most recently repair of a surgery on his right shoulder, mitral va lve repair and, prior to that, appendectomy. ALLERGIES: THE PATIENT HAS NO KNOWN ALLERGIES. MEDICATIONS: 1. Lasix 40 mg. 2. Supplemental potassium. 3. Benazepril. 4. Metolazone 5 mg daily. 5. Tamsulosin 0.4 mg. 6. Pravastatin. 7. Metoprolol. 8. Gabapentin 100 mg at bedtime. 9. Tradjenta. 10. Two kinds of Insulin. PHYSICAL EXAMINATION GENERAL: Reveals an obese, tearful, slightly emotionally labile white male who in general is pleasa nt and affable. VITAL SIGNS: Stable. HEENT: The pupils are equal, round, and react to light. Extraocular movements are full. The mouth has moist mucous membranes. CHEST: Clear to auscultation. There is tenderness and decreased range of motion of the right shoul dao, but no swelling or redness or obvious deformity. HEART: Regular. There is no gallop. ABDOMEN: Obese, soft, no palpable organs or masses. EXTREMITIES: The patient has +1 edema of the lower extremities with some post edema granulation and 2 large 12 cm areas on each lower leg which are light purple and show large flakes of skin, prepari ng to desquamate. They are dry. There is no drainage or pus. There is no surrounding area of cellu litis. The patient has decreased feeling in his feet. INITIAL IMPRESSION: 1. Cellulitis of both legs. 2. Stasis dermatitis with stasis ulcers. 3. History of deep vein thrombosis, bilateral. 4. Ischemic cardiomyopathy with peripheral edema. 5. Diabetes mellitus. 6. History of mitral valve repair. RECOMMENDATIONS: Pending methicillin-resistant Staphylococcus aureus culture of the nares, would di scontinued the Zosyn and replace that with ceftriaxone while awaiting the necessity of using vancomy diane. Order a methicillin-resistant Staphylococcus aureus screen. Elevate foot of the bed 20 degree s and I recommended the patient get elastic stockings permanently. Dictated By: Olga ABBOTT/NTS Conf#: [id number] DID#: [id number]
[2016-10-25] VITALS (13 sets, daily range): BP systolic 90–134; BP diastolic 46–60; PULSE 74–92; RESP 18–20
[2016-10-25] MEDS: PANTOPRAZOLE (EC) 40 MG TAB PO SCH (05:04)
[2016-10-25] MEDS: VANCOMYCIN 2 GM in SOD CHLORIDE 0.9% 500 ML IVPB SCH (05:04)
[2016-10-25 06:38] LABS: ADD SCAN DIFF NO
[2016-10-25 06:54] LABS: BASOPHIL # 0.1 10^3/ul (0.0-0.1); BASOPHILS % 0.7 % (0.0-2.0); EOSINOPHILS # 0.3 10^3/ul (0.0-0.5); EOSINOPHILS % 4.1 % (0.0-7.0); LYMPHOCYTES # 0.8 10^3/ul (0.8-2.9); LYMPHOCYTES % 11.6 % (15.0-51.0); MEAN CORPUSCULAR HEMOGLOBIN 30.1 pg (29.0-33.0); MEAN CORPUSCULAR HGB CONC 32.3 g/dl (32.0-37.0); MEAN CORPUSCULAR VOLUME 93.4 fl (82.0-101.0); MEAN PLATELET VOLUME 10.6 fl (7.4-10.4); MONOCYTE # 0.9 10^3/ul (0.3-0.9); MONOCYTES % 12.8 % (0.0-11.0); NEUTROPHIL # 5.1 10^3/ul (1.6-7.5); NEUTROPHILS % 70.1 % (39.0-77.0); PLATELET COUNT 169 10^3/UL (140-415); RED BLOOD COUNT 3.32 10^6/ul (4.70-6.10); RED CELL DISTRIBUTION WIDTH 13.2 % (11.5-14.5); WHITE BLOOD COUNT 7.2 10^3/ul (4.8-10.8)
[2016-10-25 07:04] LABS: MAGNESIUM 1.7 mg/dl (1.7-2.5); PHOSPHORUS 3.6 mg/dl (2.5-4.9)
[2016-10-25 07:05] LABS: CREATININE 1.78 mg/dl (0.61-1.24); POTASSIUM 4.7 mmol/L (3.5-5.1)
[2016-10-25] MEDS: RIVAROXABAN 15 MG TABLET PO SCH ×2 (08:44→18:03)
[2016-10-25] MEDS: LINAGLIPTIN 5 MG TABLET PO SCH (08:47)
[2016-10-25] MEDS: CHOLECALCIFEROL 2,000 UNIT CAP PO SCH (08:47)
[2016-10-25] MEDS: ASPIRIN (EC) 81 MG TAB PO SCH (08:47)
[2016-10-25] MEDS: METOPROLOL 50 MG TAB PO SCH ×2 (08:48→21:00)
[2016-10-25] MEDS: INSULIN ASPART [NOVOLOG] 3 ML PEN SC SCH ×5 (08:57→21:09)
[2016-10-25] MEDS: CYANOCOBALAMIN 500 MCG TAB PO SCH (08:58)
[2016-10-25] MEDS: GABAPENTIN 100 MG CAP PO SCH ×3 (08:58→21:00)
[2016-10-25] MEDS: oxyCODONE (CR) 10 MG TAB [oxyCONTIN] PO SCH ×3 (08:59→23:19)
--- NOTE | 2016-10-25 12:41 | PQ ---
Date/Time of Note Date/Time of Note DATE: 10/25/16 TIME: 12:30 Physician Query Documentation Clarification Dear Dr. Hopper, A review of the medical record found a need for documentation clarification. progress note: 1. Left lower extremity cellulitis, with areas of erythema in a patient who is diabetic with open skin. The patient was started on broad-spectrum antibiotics with vancomycin and Zosyn Please clarify if a relationship exist between DM and cellulitis. To facilitate accurate and complete coding, please benentt ( x ) the suspected diagnosis that apply: (x ) DM with cellulitis ( ) DM unrelated to cellulitis ( ) Others ( ) unable to determine Please provide your response by clicking edit document, making your choice ( x ), click ok/save and finally click sign. You may also document your response on your progress notes. Thank you for your time. With appreciation, Shamir De Anda RN, BSN, CCS, CCDS Clinical Supervisor [employer] Health Information Management, CDI and Coding Services [phone] Room # 1525 - Coding [address]~ [address] SHAMIR DE ANDA Oct 25, 2016 12:40 RANCHO HOPPER MD Oct 25, 2016 14:28
--- NOTE | 2016-10-25 14:02 | CONS ---
Date/Time of Note Date/Time of Note DATE: 10/25/16 TIME: 14:02 Assessment/Plan Assessment/Plan Chief Complaint/Hosp Course SUBJECTIVE: No acute changes. The patient is alert, feels better, looks comfortable. No fevers. MICROBIOLOGY: Blood culture on 09/24 had been negative. ANTIMICROBIALS: The patient is on: 1. Vancomycin. 2. Rocephin. PHYSICAL EXAMINATION: GENERAL: This is a morbidly obese elderly man who is alert, in no distress. HEENT: Head atraumatic, normocephalic. Sclerae anicteric. Buccal mucosa dry. NECK: Obese. CHEST: Rise symmetrical. Breath sounds clear. HEART: S1, S2. ABDOMEN: Soft. Bowel sounds present. EXTREMITIES: Bilateral lower extremity edema, erythema, left more than right, improving. ASSESSMENT: 1. Left lower extremity cellulitis, improving. 2. Bilateral lower extremity chronic venous stasis. 3. Morbid obesity. 4. Acute renal failure. PLAN: Continues to improve on current antimicrobials. Continue keeping lower extremities elevated. DW pt Problems: Consultation Date/Type/Reason Admit Date/Time Oct 22, 2016 at 17:09 Initial Consult Date Type of Consultation: ID Exam/Review of Systems Vital Signs Vitals Vital Signs Date Time Temp Pulse Resp B/P Pulse Ox O2 Delivery O2 Flow Rate FiO2 10/25/16 12:13 79 10/25/16 11:29 99.6 19 134/60 94 10/25/16 05:31 Room Air Intake and Output 10/24/16 10/24/16 10/25/16 15:00 23:00 07:00 Intake Total 200 ml 1250 ml Output Total 1200 ml Balance 200 ml 50 ml Results Result Diagram: 10/25/16 0550 10/25/16 0550 Results 24 hrs Laboratory Tests Test 10/24/16 17:16 10/24/16 20:07 10/25/16 05:50 10/25/16 08:45 Bedside Glucose 191 240 H 214 White Blood Count 7.2 Red Blood Count 3.32 L Hemoglobin 10.0 L Hematocrit 31.0 L Mean Corpuscular Volume 93.4 Mean Corpuscular Hemoglobin 30.1 Mean Corpuscular Hemoglobin Concent 32.3 Red Cell Distribution Width 13.2 Platelet Count 169 Mean Platelet Volume 10.6 H Neutrophils % 70.1 Lymphocytes % 11.6 L Monocytes % 12.8 H Eosinophils % 4.1 Basophils % 0.7 Nucleated Red Blood Cells % 0.0 Neutrophils # 5.1 Lymphocytes # 0.8 Monocytes # 0.9 Eosinophils # 0.3 Basophils # 0.1 Nucleated Red Blood Cells # 0.0 Sodium Level 138 Potassium Level 4.7 Chloride Level 105 Carbon Dioxide Level 27 Anion Gap 11 Blood Urea Nitrogen 20 Creatinine 1.78 H Glucose Level 201 Calcium Level 9.0 Phosphorus Level 3.6 Magnesium Level 1.7 Test 10/25/16 12:26 Bedside Glucose 211 Medications Medications Current Medications Dextrose (D50w Syringe) ONCE PRN IV POC BLOOD GLUCOSE <250 MG/DL Last administered on 10/22/16 17:39; Admin Dose 50 ML; Start 10/22/16 at 17:30 Ondansetron HCl (Zofran Inj) 4 mg Q6H PRN IV NAUSEA AND/OR VOMITING; Start 10/22 at 22:00 Nitroglycerin (Nitroglycerin (Sl Tab) 0.4 Mg) 1 tab Q5M PRN SL CHEST PAIN; Start 10/22/16 at 22:00 Acetaminophen (Tylenol Tab) 650 mg Q6H PRN PO PAIN LEVEL 1-3 OR FEVER; Start at 22:00 Docusate Sodium (Colace) 100 mg Q12H PRN PO CONSTIPATION; Start 10/22/16 at 22: 00 Magnesium Hydroxide (Milk Of Mag) 30 ml DAILY PRN PO CONSTIPATION; Start at 22:00 Pantoprazole (Protonix Tab) 40 mg DAILY@06 PO Last administered on 10/25/16 05 :04; Admin Dose 40 MG; Start 10/23/16 at 06:00 Aspirin (Halfprin) 81 mg DAILY PO Last administered on 10/25/16 08:47; Admin Dose 81 MG; Start 10/23/16 at 09:00 Cholecalciferol (Vitamin D) 2,000 unit DAILY PO Last administered on 10/25/16 08:47; Admin Dose 2,000 UNIT; Start 10/23/16 at 09:00 Cyanocobalamin (Vitamin B12) 1,000 mcg DAILY PO Last administered on 10/25/16 08:58; Admin Dose 1,000 MCG; Start 10/23/16 at 09:00 Linagliptin (Tradjenta) 5 mg DAILY PO Last administered on 10/25/16 08:47; Admin Dose 5 MG; Start 10/23/16 at 09:00 Metoprolol Tartrate (Lopressor) 50 mg BID PO Last administered on 10/25/16 08: 48; Admin Dose 50 MG; Start 10/23/16 at 09:00 Tamsulosin HCl (Flomax) 0.4 mg HS PO Last administered on 10/24/16 21:28; Admin Dose 0.4 MG; Start 10/23/16 at 21:00 Zolpidem Tartrate (Ambien) 5 mg QHS PRN PO INSOMNIA; Start 10/22/16 at 22:00 Hydromorphone HCl (Dilaudid) 0.5 mg Q4H PRN IV PAIN; Start 10/22/16 at 22:00 Oxycodone HCl (Roxicodone) 10 mg Q4H PRN PO PAIN Last administered on 21:03; Admin Dose 10 MG; Start 10/22/16 at 22:00 Miscellaneous Information 1 ea NOTE XX ; Start 10/22/16 at 22:30 Glucose (Glutose) 15 gm Q15M PRN PO DECREASED GLUCOSE; Start 10/22/16 at 22:30 Glucose (Glutose) 22.5 gm Q15M PRN PO DECREASED GLUCOSE; Start 10/22/16 at 22:30 Dextrose (D50w Syringe) 25 ml Q15M PRN IV DECREASED GLUCOSE; Start 10/22/16 at 22:30 Dextrose (D50w Syringe) 50 ml Q15M PRN IV DECREASED GLUCOSE; Start 10/22/16 at 22:30 Glucagon (Glucagen) 1 mg Q15M PRN IM DECREASED GLUCOSE; Start 10/22/16 at 22:30 Glucose (Glutose) 15 gm Q15M PRN BUCCAL DECREASED GLUCOSE; Start 10/22/16 at 22: 30 Gabapentin 200 mg 200 mg TID PO Last administered on 10/25/16 13:32; Admin Dose 200 MG; Start 10/23/16 at 13:00 Vancomycin HCl/ Sodium Chloride (Vancocin/NS) 500 ml @ 125 mls/hr Q24H IVPB Last administered on 10/25/16 05:04; Admin Dose 125 MLS/HR; Start 10/25/16 at 06:00 Insulin Glargine (Lantus) 24 unit DAILY@20 SC Last administered on 10/24/16 21 :30; Admin Dose 24 UNIT; Start 10/24/16 at 20:00 Oxycodone HCl (Oxycontin) 10 mg BID PO Last administered on 10/25/16 09:58; Admin Dose 10 MG; Start 10/24/16 at 11:30 Lorazepam 0.5 mg 0.5 mg Q6H PRN IV anxiety; Start 10/24/16 at 11:30 Ceftriaxone Sodium (Rocephin) 50 ml @ 100 mls/hr Q24H IVPB Last administered on 10/24/16 21:39; Admin Dose 100 MLS/HR; Start 10/24/16 at 21:00; Stop at 18:00 Miscellaneous Information (*Rx Drug Level Order Reminder*) VANCOMYCIN TROUGH AT 0,400 ONCE ONCE XX ; Start 10/26/16 at 04:00; Stop 10/26/16 at 04:01 ENOCH YUN NP Oct 25, 2016 14:02
--- NOTE | 2016-10-25 15:32 | PN ---
DATE: 10/25/2016 SUBJECTIVE: The patient appears to be more calm today. I appreciate Dr. Garcia's infectious disea se recommendations and input. The patient had a low-grade temperature today at 99.6. Glucose level s are still in the low 200s. Kidney function has improved. OBJECTIVE: VITAL SIGNS: Temperature 99.6, pulse 79, respirations 19, blood pressure 134/60, saturation 94% on room air. GENERAL: No acute distress. The patient is morbidly obese, pale. CARDIOVASCULAR: S1 and S2, regular rate. LUNGS: Clear. ABDOMEN: Soft, obese. EXTREMITIES: Trace edema lower extremities with erythema at the left leg below the knee improved. He has open skin wounds in the anterior aspect of the tibia and posterior aspect. MEDICATIONS: Were adjusted and are currently 1. Vancomycin dose per pharmacy: 2. Rocephin 1 gram q. 24 hours. 3. Lantus 24 units daily. 4. OxyContin 10 mg b.i.d. 5. Ativan 0.5 IV q. 6 p.r.n. for anxiety. 6. Flomax 0.4 at bedtime. 7. Neurontin 200 mg t.i.d. 8. Aspirin 81 mg daily. 9. Vitamin D 2000 daily. 10. Vitamin B12 1000 daily. 11. Tradjenta 5 mg daily. 12. Lopressor 50 b.i.d. 13. Xarelto 15 mg daily. 14. Insulin aspart per sliding scale. 15. Protonix 40 mg daily. 16. Hypoglycemia protocol p.r.n. 17. Zofran p.r.n. 18. Nitroglycerin p.r.n. 19. Tylenol p.r.n. 20. Colace p.r.n. 21. Milk of magnesia p.r.n. 22. Ambien p.r.n. 23. Dilaudid p.r.n. 24. Oxycodone 10 mg q. 4 p.r.n. ASSESSMENT AND PLAN: This is an unfortunate 65-year-old morbidly obese male with history of diabetes mellitus, chronic pain, peripheral vascular disease, bilateral lower extremity DVT in th e past, hypertension, diabetic neuropathy, and osteoarthritis who presented with acute renal failure and lower extremity cellulitis, more pronounced on the left. 1. Lower extremity cellulitis. I appreciate Dr. Garcia's input. Continue Rocephin and vancomycin . Follow up MRSA of the nares. Clinically improved, but the patient had a low-grade fever x1. We will monitor. 2. Diabetes mellitus. Titrate insulin up and put him on Lantus 30 units with NovoLog 8 units q. a. c. meals. Previous dose of insulin ____, but likely the patient is not eating here as much as at [facility]. Continue Tradjenta. 3. The patient with history of DVT and nonambulatory status. Continue Xarelto 15 mg daily. 4. Anemia. The patient with B12 deficiency, anemia of chronic disease. H and H remain stable. 5. Diabetic neuropathy. Continue Neurontin. 6. Chronic pain, now on OxyContin routine and p.r.n., long-acting and short-acting. 7. Continue aspirin for cardiac protection. 8. Physical therapy as tolerated. 9. Benign prostatic hypertrophy. Continue Flomax. Likely, he will need to transfer soon to custodial facility for physical therapy to see if he can get out of bed and be more active again and for possible IV antibiotics as he failed outpatient management. We will follow. Dictated By: RANCHO ALMEIDA/OMAR Conf#: [id number] DID#: [id number]
[2016-10-25] MEDS ORDERED: INSULIN GLARGINE [LANtus] 3 ML PEN SC SCH (20:00)
[2016-10-25] MEDS: TAMSULOSIN (SR) 0.4 MG CAP PO SCH (21:00)
[2016-10-25] MEDS: CEFTRIAXONE 1 GM/50 ML (PMX) 50 ML IVPB SCH (21:01)
[2016-10-25] MEDS: oxyCODONE 5 MG TAB PO PRN (21:02)
[2016-10-26] VITALS (12 sets, daily range): BP systolic 105–125; BP diastolic 47–65; PULSE 79–95; RESP 15–20
[2016-10-26 05:19] LABS: ADD SCAN DIFF NO
[2016-10-26 05:24] LABS: BASOPHIL # 0.1 10^3/ul (0.0-0.1); BASOPHILS % 0.6 % (0.0-2.0); EOSINOPHILS # 0.3 10^3/ul (0.0-0.5); EOSINOPHILS % 2.7 % (0.0-7.0); HEMATOCRIT 29.8 % (42.0-52.0); HEMOGLOBIN 9.6 g/dl (14.0-18.0); LYMPHOCYTES # 0.9 10^3/ul (0.8-2.9); MEAN CORPUSCULAR HEMOGLOBIN 30.2 pg (29.0-33.0); MEAN CORPUSCULAR HGB CONC 32.2 g/dl (32.0-37.0); MEAN CORPUSCULAR VOLUME 93.7 fl (82.0-101.0); MEAN PLATELET VOLUME 10.8 fl (7.4-10.4); MONOCYTE # 1.2 10^3/ul (0.3-0.9); MONOCYTES % 12.2 % (0.0-11.0); NEUTROPHIL # 7.6 10^3/ul (1.6-7.5); NEUTROPHILS % 74.9 % (39.0-77.0); PLATELET COUNT 174 10^3/UL (140-415); RED BLOOD COUNT 3.18 10^6/ul (4.70-6.10); RED CELL DISTRIBUTION WIDTH 13.3 % (11.5-14.5); WHITE BLOOD COUNT 10.2 10^3/ul (4.8-10.8)
[2016-10-26 05:56] LABS: CALCIUM 8.8 mg/dl (8.4-10.2); CREATININE 1.9 mg/dl (0.61-1.24); MAGNESIUM 1.7 mg/dl (1.7-2.5); PHOSPHORUS 3.8 mg/dl (2.5-4.9); POTASSIUM 4.6 mmol/L (3.5-5.1)
[2016-10-26] MEDS: PANTOPRAZOLE (EC) 40 MG TAB PO SCH (05:59)
[2016-10-26] MEDS: VANCOMYCIN 2 GM in SOD CHLORIDE 0.9% 500 ML IVPB SCH (05:59)
[2016-10-26] MEDS: ASPIRIN (EC) 81 MG TAB PO SCH (08:22)
[2016-10-26] MEDS: LINAGLIPTIN 5 MG TABLET PO SCH (08:25)
[2016-10-26] MEDS: GABAPENTIN 100 MG CAP PO SCH ×3 (08:25→21:00)
[2016-10-26] MEDS: CHOLECALCIFEROL 2,000 UNIT CAP PO SCH (08:25)
[2016-10-26] MEDS: CYANOCOBALAMIN 500 MCG TAB PO SCH (08:25)
[2016-10-26] MEDS: oxyCODONE (CR) 10 MG TAB [oxyCONTIN] PO SCH (08:26)
[2016-10-26] MEDS: RIVAROXABAN 15 MG TABLET PO SCH ×2 (08:26→18:13)
[2016-10-26] MEDS: METOPROLOL 50 MG TAB PO SCH ×2 (08:26→21:00)
[2016-10-26] MEDS: INSULIN ASPART [NOVOLOG] 3 ML PEN SC SCH ×7 (08:30→21:00)
--- NOTE | 2016-10-26 14:01 | CONS ---
Date/Time of Note Date/Time of Note DATE: 10/26/16 TIME: 14:00 Assessment/Plan Assessment/Plan Chief Complaint/Hosp Course SUBJECTIVE: No acute changes. The patient is alert, looks comfortable. No fevers. MICROBIOLOGY: Blood culture on 09/24 had been negative. ANTIMICROBIALS: The patient is on: 1. Vancomycin. 2. Rocephin. PHYSICAL EXAMINATION: GENERAL: This is a morbidly obese elderly man who is alert, in no distress. HEENT: Head atraumatic, normocephalic. Sclerae anicteric. Buccal mucosa dry. NECK: Obese. CHEST: Rise symmetrical. Breath sounds clear. HEART: S1, S2. ABDOMEN: Soft. Bowel sounds present. EXTREMITIES: Bilateral lower extremity edema, erythema, left more than right, improving. ASSESSMENT: 1. Left lower extremity cellulitis, improving. 2. Bilateral lower extremity chronic venous stasis. 3. Morbid obesity. 4. Acute renal failure. PLAN: Continues to improve on current antimicrobials. Continue keeping lower extremities elevated. DW staff Problems: Consultation Date/Type/Reason Admit Date/Time Oct 22, 2016 at 17:09 Type of Consultation: ID Exam/Review of Systems Vital Signs Vitals Vital Signs Date Time Temp Pulse Resp B/P Pulse Ox O2 Delivery O2 Flow Rate FiO2 10/26/16 12:00 79 10/26/16 11:02 98.5 16 120/65 94 10/25/16 05:31 Room Air Intake and Output 10/25/16 10/25/16 10/26/16 15:00 23:00 07:00 Intake Total 450 ml 100 ml Output Total 800 ml Balance -350 ml 100 ml Results Result Diagram: 10/26/16 0415 10/26/16 0415 Results 24 hrs Laboratory Tests Test 10/25/16 17:55 10/25/16 20:52 10/26/16 04:15 10/26/16 08:18 Bedside Glucose 243 H 232 H 194 White Blood Count 10.2 # Red Blood Count 3.18 L Hemoglobin 9.6 L Hematocrit 29.8 L Mean Corpuscular Volume 93.7 Mean Corpuscular Hemoglobin 30.2 Mean Corpuscular Hemoglobin Concent 32.2 Red Cell Distribution Width 13.3 Platelet Count 174 Mean Platelet Volume 10.8 H Neutrophils % 74.9 Lymphocytes % 9.0 L Monocytes % 12.2 H Eosinophils % 2.7 Basophils % 0.6 Nucleated Red Blood Cells % 0.0 Neutrophils # 7.6 H Lymphocytes # 0.9 Monocytes # 1.2 H Eosinophils # 0.3 Basophils # 0.1 Nucleated Red Blood Cells # 0.0 Sodium Level 137 Potassium Level 4.6 Chloride Level 103 Carbon Dioxide Level 29 Anion Gap 10 Blood Urea Nitrogen 19 Creatinine 1.90 H Glucose Level 204 Calcium Level 8.8 Phosphorus Level 3.8 Magnesium Level 1.7 Vancomycin Level Trough 13.3 Test 10/26/16 12:24 Bedside Glucose 262 H Medications Medications Current Medications Dextrose (D50w Syringe) ONCE PRN IV POC BLOOD GLUCOSE <250 MG/DL Last administered on 10/22/16 17:39; Admin Dose 50 ML; Start 10/22/16 at 17:30 Ondansetron HCl (Zofran Inj) 4 mg Q6H PRN IV NAUSEA AND/OR VOMITING; Start 10/22 at 22:00 Nitroglycerin (Nitroglycerin (Sl Tab) 0.4 Mg) 1 tab Q5M PRN SL CHEST PAIN; Start 10/22/16 at 22:00 Acetaminophen (Tylenol Tab) 650 mg Q6H PRN PO PAIN LEVEL 1-3 OR FEVER; Start at 22:00 Docusate Sodium (Colace) 100 mg Q12H PRN PO CONSTIPATION; Start 10/22/16 at 22: 00 Magnesium Hydroxide (Milk Of Mag) 30 ml DAILY PRN PO CONSTIPATION; Start at 22:00 Pantoprazole (Protonix Tab) 40 mg DAILY@06 PO Last administered on 10/26/16 05 :59; Admin Dose 40 MG; Start 10/23/16 at 06:00 Aspirin (Halfprin) 81 mg DAILY PO Last administered on 10/26/16 08:22; Admin Dose 81 MG; Start 10/23/16 at 09:00 Cholecalciferol (Vitamin D) 2,000 unit DAILY PO Last administered on 10/26/16 08:25; Admin Dose 2,000 UNIT; Start 10/23/16 at 09:00 Cyanocobalamin (Vitamin B12) 1,000 mcg DAILY PO Last administered on 10/26/16 08:25; Admin Dose 1,000 MCG; Start 10/23/16 at 09:00 Linagliptin (Tradjenta) 5 mg DAILY PO Last administered on 10/26/16 08:25; Admin Dose 5 MG; Start 10/23/16 at 09:00 Metoprolol Tartrate (Lopressor) 50 mg BID PO Last administered on 10/26/16 08: 26; Admin Dose 50 MG; Start 10/23/16 at 09:00 Tamsulosin HCl (Flomax) 0.4 mg HS PO Last administered on 10/25/16 21:00; Admin Dose 0.4 MG; Start 10/23/16 at 21:00 Zolpidem Tartrate (Ambien) 5 mg QHS PRN PO INSOMNIA; Start 10/22/16 at 22:00 Hydromorphone HCl (Dilaudid) 0.5 mg Q4H PRN IV PAIN; Start 10/22/16 at 22:00 Oxycodone HCl (Roxicodone) 10 mg Q4H PRN PO PAIN Last administered on 21:02; Admin Dose 10 MG; Start 10/22/16 at 22:00 Miscellaneous Information 1 ea NOTE XX ; Start 10/22/16 at 22:30 Glucose (Glutose) 15 gm Q15M PRN PO DECREASED GLUCOSE; Start 10/22/16 at 22:30 Glucose (Glutose) 22.5 gm Q15M PRN PO DECREASED GLUCOSE; Start 10/22/16 at 22:30 Dextrose (D50w Syringe) 25 ml Q15M PRN IV DECREASED GLUCOSE; Start 10/22/16 at 22:30 Dextrose (D50w Syringe) 50 ml Q15M PRN IV DECREASED GLUCOSE; Start 10/22/16 at 22:30 Glucagon (Glucagen) 1 mg Q15M PRN IM DECREASED GLUCOSE; Start 10/22/16 at 22:30 Glucose (Glutose) 15 gm Q15M PRN BUCCAL DECREASED GLUCOSE; Start 10/22/16 at 22: 30 Gabapentin 200 mg 200 mg TID PO Last administered on 10/26/16 12:34; Admin Dose 200 MG; Start 10/23/16 at 13:00 Vancomycin HCl/ Sodium Chloride (Vancocin/NS) 500 ml @ 125 mls/hr Q24H IVPB Last administered on 10/26/16 05:59; Admin Dose 125 MLS/HR; Start 10/25/16 at 06:00 Oxycodone HCl (Oxycontin) 10 mg BID PO Last administered on 10/26/16 08:26; Admin Dose 10 MG; Start 10/24/16 at 11:30 Lorazepam 0.5 mg 0.5 mg Q6H PRN IV anxiety; Start 10/24/16 at 11:30 Ceftriaxone Sodium (Rocephin) 50 ml @ 100 mls/hr Q24H IVPB Last administered on 10/25/16 21:01; Admin Dose 100 MLS/HR; Start 10/24/16 at 21:00; Stop at 18:00 Insulin Glargine (Lantus) 30 unit DAILY@20 SC Last administered on 10/25/16 21 :10; Admin Dose 30 UNIT; Start 10/25/16 at 20:00 ENOCH YUN NP Oct 26, 2016 14:01
[2016-10-26] MEDS ORDERED: LORAZEPAM 0.5 MG TAB PO PRN (17:00)
[2016-10-26] MEDS: INSULIN GLARGINE [LANtus] 3 ML PEN SC SCH (20:00)
[2016-10-26] MEDS ORDERED: oxyCODONE (CR) 10 MG TAB [oxyCONTIN] PO SCH ×2 (21:00)
[2016-10-26] MEDS: TAMSULOSIN (SR) 0.4 MG CAP PO SCH (21:00)
[2016-10-26] MEDS: CEFTRIAXONE 1 GM/50 ML (PMX) 50 ML IVPB SCH (21:42)
[2016-10-27] VITALS (13 sets, daily range): BP systolic 108–138; BP diastolic 53–66; PULSE 86–98; RESP 15–22
[2016-10-27] MEDS: VANCOMYCIN 2 GM in SOD CHLORIDE 0.9% 500 ML IVPB SCH (05:57)
[2016-10-27] MEDS: PANTOPRAZOLE (EC) 40 MG TAB PO SCH (05:57)
--- NOTE | 2016-10-27 06:58 | PN ---
DATE: 10/26/2016 SUBJECTIVE: The patient seen, case was discussed with nursing staff, case management, and I spoke i n detail with the patient's daughter, Gris, phone number [phone] about the patient's conditio n, plan of care, and the patient's behavior as he states that he wants a different doctor. I told h im that once he gets transferred or if he can find a doctor earlier, he can take care of him. Other [place], the patient overall can be discharged either to a jail facility or maybe even to e acute rehab here in the hospital, so then he can change doctors. This can be done today. I spoke with case fitter. The acute rehab evaluation is made. The patient's daughter is concerned that t he patient has not been walking much. This is likely multifactorial because of his weight, arthriti s, and his deconditioning. The patient's erythema of the legs is improving. I appreciate ID input. Kidney function is stabilizing on the high 1s. Now it is 1.9. OBJECTIVE: VITAL SIGNS: Temperature 98.8, the patient is afebrile, pulse 79, respirations 16, blood pressure 1 20/65, saturation is 94%. GENERAL: The patient is in no acute distress. The patient is morbidly obese. EXTREMITIES: The patient overall legs look better. His left lower extremity is bandaged. There is trace edema. The exam is overall also limited as the patient is not very cooperative. LABORATORY DATA: White count is 10.2, hemoglobin 9.6, hematocrit 30, platelet count of 134, neutrop hils 75%, lymphocytes 9%, monocytes 12%. Chemistry: Sodium is 137, potassium 4.6, chloride 103, bi carbonate 29, BUN is 19, creatinine 0.9, and glucose of 204. Last glucose level is 262. His glucos e level is still running a little bit high. We will titrate his insulin up further. MEDICATIONS: Include 1. Lantus. I just increased it to 40 and the NovoLog to 14 units, and that was his admitting doses as I reduced it initially. 2. Vancomycin IV dose per pharmacy. 3. Ceftriaxone 1 gram q. 24 hours. 4. Oxycodone 10 mg b.i.d. 5. Ativan 0.5 q. 6 p.r.n. 6. Flomax 0.4 at bedtime. 7. Neurontin 200 t.i.d. 8. Aspirin 81 mg daily. 9. Vitamin D 2000 daily. 10. Vitamin B12 1000 daily. 11. Tradjenta 5 mg daily. 12. Lopressor 50 mg b.i.d. 13. Xarelto 15 mg with dinner. 14. Insulin aspart p.o. at bedtime. 15. Protonix 40 mg daily. 16. Hypoglycemia protocol as directed. 17. Zofran p.r.n. 18. Nitroglycerin p.r.n. 19. Tylenol p.r.n. 20. Colace p.r.n. 21. Milk of magnesia p.r.n. 22. Ambien p.r.n. 23. Dilaudid p.r.n. 24. Oxycodone p.r.n. ASSESSMENT AND PLAN: This is a 65-year-old morbidly obese male with history of diabetes m ellitus, chronic pain, peripheral vascular disease, bilateral lower extremity DVTs in the past, hype rtension, diabetic neuropathy, osteoarthritis who presented with acute renal failure and lower extre mity cellulitis, more pronounced on the left lower extremity. 1. Lower extremity cellulitis improved with Rocephin and vancomycin. Temperature curve is trending down. MRSA screening was negative. ID to follow regarding discontinuation of vancomycin. 2. Diabetes mellitus. Increase Lantus to 40 and NovoLog to 14 units, continue Tradjenta, and monit or closely. 3. History of deep venous thrombosis. Continue Xarelto. 4. Anemia. The patient is on B12 deficiency and the patient with anemia of chronic disease seconda ry to chronic kidney disease. 5. Acute on chronic renal insufficiency, observe. 6. Peripheral edema. May need to resume Lasix soon. 7. Chronic pain. We will reduce OxyContin to 5 mg b.i.d. as the patient appears to be more sleepin g, and per nursing staff, he is somewhat maybe even hallucinating or acting bizarre. We will reduce some opioids which make causing him this confusion. Per daughter, the patient also acted that way in the past; sometimes he had good days and bad days and he can be verbally abusive. 8. Continue aspirin for cardiac protection. 9. Physical therapy as tolerated, and acute rehabilitation evaluation will be requested. 10. Benign prostatic hypertrophy. Continue Flomax. 11. The patient will be kept comfortable. He did sustain a fall yesterday at the elbow, but the pa tient denies any pain. Nursing staff was not too concerned. 12. Morbidly obese state with a body mass index of 43. Dietitian to follow. Awaiting acute rehabi litation evaluation. Otherwise, soon back to assisted living with home health. We will follow. Dictated By: RANCHO ALMEIDA/OMAR Conf#: [id number] DID#: [id number]
[2016-10-27] MEDS: GABAPENTIN 100 MG CAP PO SCH ×3 (08:08→20:33)
[2016-10-27] MEDS: LINAGLIPTIN 5 MG TABLET PO SCH (08:09)
[2016-10-27] MEDS: CHOLECALCIFEROL 2,000 UNIT CAP PO SCH (08:09)
[2016-10-27] MEDS: ASPIRIN (EC) 81 MG TAB PO SCH (08:09)
[2016-10-27] MEDS: CYANOCOBALAMIN 500 MCG TAB PO SCH (08:09)
[2016-10-27] MEDS: RIVAROXABAN 15 MG TABLET PO SCH ×2 (08:09→18:01)
[2016-10-27] MEDS: METOPROLOL 50 MG TAB PO SCH ×2 (08:09→20:33)
[2016-10-27] MEDS: INSULIN GLARGINE [LANtus] 3 ML PEN SC SCH ×2 (08:10→20:31)
[2016-10-27] MEDS: INSULIN ASPART [NOVOLOG] 3 ML PEN SC SCH ×7 (08:12→20:33)
--- NOTE | 2016-10-27 14:23 | CONS ---
Date/Time of Note Date/Time of Note DATE: 10/27/16 TIME: 14:22 Assessment/Plan Assessment/Plan Chief Complaint/Hosp Course SUBJECTIVE: No acute changes. The patient is alert, looks comfortable. No fevers. MICROBIOLOGY: Blood culture on 09/24 had been negative. ANTIMICROBIALS: 1. Vancomycin. 2. Rocephin. PHYSICAL EXAMINATION: GENERAL: This is a morbidly obese elderly man who is alert, in no distress. HEENT: Head atraumatic, normocephalic. Sclerae anicteric. Buccal mucosa dry. NECK: Obese. CHEST: Rise symmetrical. Breath sounds clear. HEART: S1, S2. ABDOMEN: Soft. Bowel sounds present. EXTREMITIES: Bilateral lower extremity edema, erythema, left more than right, improving. ASSESSMENT: 1. Left lower extremity cellulitis, improving. 2. Bilateral lower extremity chronic venous stasis. 3. Morbid obesity. 4. Acute renal failure. PLAN: BLE with increased swelling today, I asked staff to keep them elevated on 2 pillows, continue abx HEATHER Henriquez Problems: Consultation Date/Type/Reason Admit Date/Time Oct 22, 2016 at 17:09 Type of Consultation: ID Exam/Review of Systems Vital Signs Vitals Vital Signs Date Time Temp Pulse Resp B/P Pulse Ox O2 Delivery O2 Flow Rate FiO2 10/27/16 12:22 86 10/27/16 11:28 98.6 18 122/65 97 10/25/16 05:31 Room Air Intake and Output 10/26/16 10/26/16 10/27/16 15:00 23:00 07:00 Intake Total 1000 ml 180 ml Balance 1000 ml 180 ml Results Result Diagram: 10/26/16 0415 10/26/16 0415 Results 24 hrs Laboratory Tests Test 10/26/16 18:11 10/26/16 21:58 10/27/16 06:03 10/27/16 08:07 Bedside Glucose 189 87 135 151 Test 10/27/16 11:32 Bedside Glucose 130 Medications Medications Current Medications Dextrose (D50w Syringe) ONCE PRN IV POC BLOOD GLUCOSE <250 MG/DL Last administered on 10/22/16t 17:39; Admin Dose 50 ML; Start 10/22/16 at 17:30 Ondansetron HCl (Zofran Inj) 4 mg Q6H PRN IV NAUSEA AND/OR VOMITING; Start 10/22 at 22:00 Nitroglycerin (Nitroglycerin (Sl Tab) 0.4 Mg) 1 tab Q5M PRN SL CHEST PAIN; Start 10/22/16 at 22:00 Acetaminophen (Tylenol Tab) 650 mg Q6H PRN PO PAIN LEVEL 1-3 OR FEVER; Start at 22:00 Docusate Sodium (Colace) 100 mg Q12H PRN PO CONSTIPATION Last administered on 06:55; Admin Dose 100 MG; Start 10/22/16 at 22:00 Magnesium Hydroxide (Milk Of Mag) 30 ml DAILY PRN PO CONSTIPATION Last administered on 10/27/16 13:07; Admin Dose 30 ML; Start 10/22/16 at 22:00 Pantoprazole (Protonix Tab) 40 mg DAILY@06 PO Last administered on 10/27/16 05 :57; Admin Dose 40 MG; Start 10/23/16 at 06:00 Aspirin (Halfprin) 81 mg DAILY PO Last administered on 10/27/16 08:09; Admin Dose 81 MG; Start 10/23/16 at 09:00 Cholecalciferol (Vitamin D) 2,000 unit DAILY PO Last administered on 10/27/16 08:09; Admin Dose 2,000 UNIT; Start 10/23/16 at 09:00 Cyanocobalamin (Vitamin B12) 1,000 mcg DAILY PO Last administered on 10/27/16 08:09; Admin Dose 1,000 MCG; Start 10/23/16 at 09:00 Linagliptin (Tradjenta) 5 mg DAILY PO Last administered on 10/27/16 08:09; Admin Dose 5 MG; Start 10/23/16 at 09:00 Metoprolol Tartrate (Lopressor) 50 mg BID PO Last administered on 10/27/16 08: 09; Admin Dose 50 MG; Start 10/23/16 at 09:00 Tamsulosin HCl (Flomax) 0.4 mg HS PO Last administered on 10/25/16 21:00; Admin Dose 0.4 MG; Start 10/23/16 at 21:00 Zolpidem Tartrate (Ambien) 5 mg QHS PRN PO INSOMNIA; Start 10/22/16 at 22:00 Hydromorphone HCl (Dilaudid) 0.5 mg Q4H PRN IV PAIN; Start 10/22/16 at 22:00 Miscellaneous Information 1 ea NOTE XX ; Start 10/22/16 at 22:30 Glucose (Glutose) 15 gm Q15M PRN PO DECREASED GLUCOSE; Start 10/22/16 at 22:30 Glucose (Glutose) 22.5 gm Q15M PRN PO DECREASED GLUCOSE; Start 10/22/16 at 22:30 Dextrose (D50w Syringe) 25 ml Q15M PRN IV DECREASED GLUCOSE; Start 10/22/16 at 22:30 Dextrose (D50w Syringe) 50 ml Q15M PRN IV DECREASED GLUCOSE; Start 10/22/16 at 22:30 Glucagon (Glucagen) 1 mg Q15M PRN IM DECREASED GLUCOSE; Start 10/22/16 at 22:30 Glucose (Glutose) 15 gm Q15M PRN BUCCAL DECREASED GLUCOSE; Start 10/22/16 at 22: 30 Gabapentin 200 mg 200 mg TID PO Last administered on 10/27/16 13:07; Admin Dose 200 MG; Start 10/23/16 at 13:00 Vancomycin HCl 2 gm/Sodium Chloride 500 ml @ 125 mls/hr Q24H IVPB Last administered on 10/27/16 05:57; Admin Dose 125 MLS/HR; Start 10/25/16 at 06:00 Ceftriaxone Sodium (Rocephin) 50 ml @ 100 mls/hr Q24H IVPB Last administered on 10/26/16 21:42; Admin Dose 100 MLS/HR; Start 10/24/16 at 21:00; Stop at 18:00 Insulin Glargine (Lantus) 40 unit DAILY@20 SC ; Start 10/26/16 at 20:00 Oxycodone HCl (Roxicodone) 5 mg Q4H PRN PO PAIN; Start 10/26/16 at 18:00 Lorazepam (Ativan) 0.5 mg Q6H PRN PO anxiety; Start 10/26/16 at 17:00 Insulin Glargine (Lantus) 20 unit DAILY@08 SC Last administered on 10/27/16 08 :10; Admin Dose 20 UNIT; Start 10/27/16 at 08:00 ENOCH YUN NP Oct 27, 2016 14:23
--- NOTE | 2016-10-27 17:32 | PN ---
DATE: 10/27/2016 SUBJECTIVE: The case discussed with nursing staff in detail. Also, I spoke with the window caser davis niruraz ricardo. I asked her to discuss with the patient whether he wants to go. The patient di d not qualify for acute rehab at the hospital, so probably preferably we will send him to a nursing home facility tomorrow for cellulitis and receive physical therapy. Upon entering the room with annie chilel nurse, patient started yelling at me. Per the nurse, the patient has been complaining of right s houlder pain. We will ask the patient how the pain is and may consider radiographic imaging. Martina brooke, patient is quite abusive. I appreciate ID input. The patient remains on IV antibiotics, T-max 99.5 at midnight. PHYSICAL EXAMINATION: VITAL SIGNS: Temperature 98.4, pulse 78, respirations 22, blood pressure 111/65, saturation 94%. GENERAL: The patient is more alert and exam is limited as the patient is noncooperative. LABORATORIES: No new labs today. Last glucose level is 130, 151 and 135. I did hold some of his in sulin as the patient's appetite yesterday was not very good. MEDICATIONS: Include: 1. Lantus 20 units daily. 2. Oxycodone 5 mg q.4h. p.r.n. 3. Insulin aspart 14 units q.a.c. meals. 4. Ativan 0.5 q.6h. p.r.n. 5. Vancomycin IV dose per pharmacy. 6. Rocephin 1 gram q.24h. 7. Flomax 0.4 mg at bedtime. 8. Gabapentin 2 mg t.i.d. 9. Aspirin 81 mg daily. 10. Vitamin D 2000 units daily. 11. Vitamin B12 1000 daily. 12. Tradjenta 5 mg daily. 13. Lopressor 50 b.i.d. 14. Xarelto 15 mg daily. 15. Insulin aspart per sliding scale. 16. Protonix 40 mg daily. 17. Hypoglycemia protocol as directed, Zofran p.r.n. 18. Tylenol p.r.n. 19. Colace p.r.n. 20. Ambien p.r.n. 21. Dilaudid and Dextrose p.r.n. ASSESSMENT AND PLAN: This is a very unfortunate 66-year-old morbidly obese male with hist ory of diabetes mellitus, chronic pain, peripheral vascular disease, bilateral lower extremity deep venous thrombosis in the past, hypertension, diabetic neuropathy, osteoarthritis who presented initi ally with acute renal failure and lower extremity cellulitis. 1. Lower extremity cellulitis on Rocephin and vancomycin treatment as per ID. A low grade fever wa s noted. Methicillin-resistant Staphylococcus aureus screening was negative. May consider continu ing with Rocephin for now. 2. Diabetes mellitus. Dose of insulin was slightly reduced as the patient has had a decreased appe tite. Continue current regimen for now and observe. 3. History of deep venous thrombosis. Continue Xarelto. 4. Anemia. Patient with B12 deficiency and also anemia of chronic disease secondary to chronic kid denis disease. Epogen p.r.n. 5. [id number] renal insufficiency. Follow up a.m. labs. 6. Peripheral edema, may need to resume Lasix as previously. We will follow on high dose diuretics with Lasix and Zaroxolyn. 7. Chronic pain. I stopped his OxyContin as patient may have been more drowsy and possibly halluci nating, so I stopped long-acting oxycodone. 9. Continue aspirin for cardiac protection. 10. Physical therapy. group home facility placement soon hopefully. 11. Benign prostatic hypertrophy. Continue Flomax. I had a long conversation yesterday with the glenda coronado's daughter. She is aware of patient's overall condition. 12. Right shoulder pain. We discussed with nursing staff further plan of care. Appears to be comf ortable. I spoke with the window caser I told her she can find a new physician for him. Otherwise, the patient likely can be discharged to a nursing home facility under a different physician as glenda coronado does not seem to be happy with me being his doctor. 13. Continue wound care per technical specialist cytology. We will follow. Dictated By: RANCHO ALMEIDA/OMAR Conf#: [id number] DID#: [id number]
[2016-10-27] MEDS: CEFTRIAXONE 1 GM/50 ML (PMX) 50 ML IVPB SCH (20:32)
[2016-10-27] MEDS: TAMSULOSIN (SR) 0.4 MG CAP PO SCH (20:32)
[2016-10-28] VITALS (11 sets, daily range): BP systolic 106–135; BP diastolic 45–73; PULSE 80–99; RESP 16–18
[2016-10-28] MEDS: VANCOMYCIN 2 GM in SOD CHLORIDE 0.9% 500 ML IVPB SCH (05:21)
[2016-10-28] MEDS: PANTOPRAZOLE (EC) 40 MG TAB PO SCH (05:21)
[2016-10-28 07:13] LABS: ADD SCAN DIFF NO
[2016-10-28 07:16] LABS: BASOPHILS % 0.2 % (0.0-2.0); EOSINOPHILS # 0.4 10^3/ul (0.0-0.5); EOSINOPHILS % 3.6 % (0.0-7.0); HEMATOCRIT 24.5 % (42.0-52.0); HEMOGLOBIN 7.9 g/dl (14.0-18.0); LYMPHOCYTES # 0.8 10^3/ul (0.8-2.9); LYMPHOCYTES % 7.9 % (15.0-51.0); MEAN CORPUSCULAR HEMOGLOBIN 30.3 pg (29.0-33.0); MEAN CORPUSCULAR HGB CONC 32.2 g/dl (32.0-37.0); MEAN CORPUSCULAR VOLUME 93.9 fl (82.0-101.0); MEAN PLATELET VOLUME 10.6 fl (7.4-10.4); NEUTROPHIL # 7.5 10^3/ul (1.6-7.5); NEUTROPHILS % 77.8 % (39.0-77.0); PLATELET COUNT 174 10^3/UL (140-415); RED BLOOD COUNT 2.61 10^6/ul (4.70-6.10); RED CELL DISTRIBUTION WIDTH 13.3 % (11.5-14.5); WHITE BLOOD COUNT 9.7 10^3/ul (4.8-10.8)
[2016-10-28 07:40] LABS: PHOSPHORUS 3.5 mg/dl (2.5-4.9)
[2016-10-28 07:49] LABS: CALCIUM 8.3 mg/dl (8.4-10.2); CREATININE 1.84 mg/dl (0.61-1.24); POTASSIUM 4.6 mmol/L (3.5-5.1)
[2016-10-28] MEDS: RIVAROXABAN 15 MG TABLET PO SCH ×2 (07:55→17:30)
[2016-10-28] MEDS: INSULIN ASPART [NOVOLOG] 3 ML PEN SC SCH ×7 (08:23→21:00)
[2016-10-28] MEDS: INSULIN GLARGINE [LANtus] 3 ML PEN SC SCH (08:25)
[2016-10-28] MEDS: CYANOCOBALAMIN 500 MCG TAB PO SCH (08:26)
[2016-10-28] MEDS: CHOLECALCIFEROL 2,000 UNIT CAP PO SCH (08:26)
[2016-10-28] MEDS: LINAGLIPTIN 5 MG TABLET PO SCH (08:26)
[2016-10-28] MEDS: ASPIRIN (EC) 81 MG TAB PO SCH (08:26)
[2016-10-28] MEDS: GABAPENTIN 100 MG CAP PO SCH ×3 (08:27→21:00)
[2016-10-28] MEDS: FUROSEMIDE 40 MG TAB PO SCH (08:27)
[2016-10-28] MEDS: METOPROLOL 50 MG TAB PO SCH ×2 (08:27→21:00)
[2016-10-28] MEDS: oxyCODONE 5 MG TAB PO PRN (09:22)
[2016-10-28 12:06] LABS: ADD SCAN DIFF NO
[2016-10-28 12:09] LABS: BASOPHILS % 0.2 % (0.0-2.0); EOSINOPHILS # 0.3 10^3/ul (0.0-0.5); EOSINOPHILS % 3.3 % (0.0-7.0); LYMPHOCYTES # 0.7 10^3/ul (0.8-2.9); LYMPHOCYTES % 7.3 % (15.0-51.0); MEAN CORPUSCULAR HEMOGLOBIN 30.5 pg (29.0-33.0); MEAN CORPUSCULAR HGB CONC 33.3 g/dl (32.0-37.0); MEAN CORPUSCULAR VOLUME 91.6 fl (82.0-101.0); MEAN PLATELET VOLUME 9.6 fl (7.4-10.4); MONOCYTE # 0.9 10^3/ul (0.3-0.9); MONOCYTES % 8.8 % (0.0-11.0); NEUTROPHIL # 7.9 10^3/ul (1.6-7.5); NEUTROPHILS % 79.7 % (39.0-77.0); PLATELET COUNT 161 10^3/UL (140-415); RED BLOOD COUNT 2.62 10^6/ul (4.70-6.10); RED CELL DISTRIBUTION WIDTH 13.1 % (11.5-14.5); WHITE BLOOD COUNT 9.9 10^3/ul (4.8-10.8)
--- NOTE | 2016-10-28 13:21 | CONS ---
Date/Time of Note Date/Time of Note DATE: 10/28/16 TIME: 13:19 Assessment/Plan Assessment/Plan Chief Complaint/Hosp Course SUBJECTIVE: No acute changes. The patient looks comfortable. No fevers. ANTIMICROBIALS: 1. Vancomycin. Through 10/26==> 13.3 2. Rocephin. PHYSICAL EXAMINATION: GENERAL: This is a morbidly obese elderly man who is alert, in no distress. HEENT: Head atraumatic, normocephalic. Sclerae anicteric. Buccal mucosa dry. NECK: Obese. CHEST: Rise symmetrical. Breath sounds clear. HEART: S1, S2. ABDOMEN: Soft. Bowel sounds present. EXTREMITIES: Bilateral lower extremity edema, erythema, left more than right, improving. ASSESSMENT: 1. Left lower extremity cellulitis, improving. 2. Bilateral lower extremity chronic venous stasis. 3. Morbid obesity. 4. Acute renal failure. PLAN: Remains unchanged, continue abx, keep BLE elevated DW staff Problems: Consultation Date/Type/Reason Admit Date/Time Oct 22, 2016 at 17:09 Type of Consultation: ID Exam/Review of Systems Vital Signs Vitals Vital Signs Date Time Temp Pulse Resp B/P Pulse Ox O2 Delivery O2 Flow Rate FiO2 10/28/16 12:30 92 10/28/16 11:19 97.7 18 112/45 95 10/25/16 05:31 Room Air Intake and Output 10/27/16 10/27/16 10/28/16 14:59 22:59 06:59 Intake Total 850 ml 100 ml Output Total 1000 ml Balance 850 ml -900 ml Results Result Diagram: 10/28/16 1150 10/28/16 0620 Results 24 hrs Laboratory Tests Test 10/27/16 17:46 10/27/16 20:27 10/28/16 03:01 10/28/16 06:20 Bedside Glucose 85 135 169 White Blood Count 9.7 Red Blood Count 2.61 L Hemoglobin 7.9 L Hematocrit 24.5 L Mean Corpuscular Volume 93.9 Mean Corpuscular Hemoglobin 30.3 Mean Corpuscular Hemoglobin Concent 32.2 Red Cell Distribution Width 13.3 Platelet Count 174 Mean Platelet Volume 10.6 H Neutrophils % 77.8 H Lymphocytes % 7.9 L Monocytes % 10.0 Eosinophils % 3.6 Basophils % 0.2 Nucleated Red Blood Cells % 0.0 Neutrophils # 7.5 Lymphocytes # 0.8 Monocytes # 1.0 H Eosinophils # 0.4 Basophils # 0.0 Nucleated Red Blood Cells # 0.0 Sodium Level 138 Potassium Level 4.6 Chloride Level 103 Carbon Dioxide Level 27 Anion Gap 13 Blood Urea Nitrogen 25 H Creatinine 1.84 H Glucose Level 155 Calcium Level 8.3 L Phosphorus Level 3.5 Magnesium Level 2.0 Test 10/28/16 08:21 10/28/16 11:50 10/28/16 11:58 Bedside Glucose 165 179 White Blood Count 9.9 Red Blood Count 2.62 L Hemoglobin 8.0 L Hematocrit 24.0 L Mean Corpuscular Volume 91.6 Mean Corpuscular Hemoglobin 30.5 Mean Corpuscular Hemoglobin Concent 33.3 Red Cell Distribution Width 13.1 Platelet Count 161 Mean Platelet Volume 9.6 Neutrophils % 79.7 H Lymphocytes % 7.3 L Monocytes % 8.8 Eosinophils % 3.3 Basophils % 0.2 Nucleated Red Blood Cells % 0.0 Neutrophils # 7.9 H Lymphocytes # 0.7 L Monocytes # 0.9 Eosinophils # 0.3 Basophils # 0.0 Nucleated Red Blood Cells # 0.0 Medications Medications Current Medications Dextrose (D50w Syringe) ONCE PRN IV POC BLOOD GLUCOSE <250 MG/DL Last administered on 10/22/16 17:39; Admin Dose 50 ML; Start 10/22/16 at 17:30 Ondansetron HCl (Zofran Inj) 4 mg Q6H PRN IV NAUSEA AND/OR VOMITING; Start 10/22 at 22:00 Nitroglycerin (Nitroglycerin (Sl Tab) 0.4 Mg) 1 tab Q5M PRN SL CHEST PAIN; Start 10/22/16 at 22:00 Acetaminophen (Tylenol Tab) 650 mg Q6H PRN PO PAIN LEVEL 1-3 OR FEVER; Start at 22:00 Docusate Sodium (Colace) 100 mg Q12H PRN PO CONSTIPATION Last administered on 06:55; Admin Dose 100 MG; Start 10/22/16 at 22:00 Magnesium Hydroxide (Milk Of Mag) 30 ml DAILY PRN PO CONSTIPATION Last administered on 10/27/16 13:07; Admin Dose 30 ML; Start 10/22/16 at 22:00 Pantoprazole (Protonix Tab) 40 mg DAILY@06 PO Last administered on 10/28/16 05 :21; Admin Dose 40 MG; Start 10/23/16 at 06:00 Aspirin (Halfprin) 81 mg DAILY PO Last administered on 10/28/16 08:26; Admin Dose 81 MG; Start 10/23/16 at 09:00 Cholecalciferol (Vitamin D) 2,000 unit DAILY PO Last administered on 10/28/16 08:26; Admin Dose 2,000 UNIT; Start 10/23/16 at 09:00 Cyanocobalamin (Vitamin B12) 1,000 mcg DAILY PO Last administered on 10/28/16 08:26; Admin Dose 1,000 MCG; Start 10/23/16 at 09:00 Linagliptin (Tradjenta) 5 mg DAILY PO Last administered on 10/28/16 08:26; Admin Dose 5 MG; Start 10/23/16 at 09:00 Metoprolol Tartrate (Lopressor) 50 mg BID PO Last administered on 10/28/16 08: 27; Admin Dose 50 MG; Start 10/23/16 at 09:00 Tamsulosin HCl (Flomax) 0.4 mg HS PO Last administered on 10/27/16 20:32; Admin Dose 0.4 MG; Start 10/23/16 at 21:00 Zolpidem Tartrate (Ambien) 5 mg QHS PRN PO INSOMNIA; Start 10/22/16 at 22:00 Hydromorphone HCl (Dilaudid) 0.5 mg Q4H PRN IV PAIN; Start 10/22/16 at 22:00 Miscellaneous Information 1 ea NOTE XX ; Start 10/22/16 at 22:30 Glucose (Glutose) 15 gm Q15M PRN PO DECREASED GLUCOSE; Start 10/22/16 at 22:30 Glucose (Glutose) 22.5 gm Q15M PRN PO DECREASED GLUCOSE; Start 10/22/16 at 22:30 Dextrose (D50w Syringe) 25 ml Q15M PRN IV DECREASED GLUCOSE; Start 10/22/16 at 22:30 Dextrose (D50w Syringe) 50 ml Q15M PRN IV DECREASED GLUCOSE; Start 10/22/16 at 22:30 Glucagon (Glucagen) 1 mg Q15M PRN IM DECREASED GLUCOSE; Start 10/22/16 at 22:30 Glucose (Glutose) 15 gm Q15M PRN BUCCAL DECREASED GLUCOSE; Start 10/22/16 at 22: 30 Gabapentin 200 mg 200 mg TID PO Last administered on 10/28/16 08:27; Admin Dose 200 MG; Start 10/23/16 at 13:00 Vancomycin HCl 2 gm/Sodium Chloride 500 ml @ 125 mls/hr Q24H IVPB Last administered on 10/28/16 05:21; Admin Dose 125 MLS/HR; Start 10/25/16 at 06:00 Ceftriaxone Sodium (Rocephin) 50 ml @ 100 mls/hr Q24H IVPB Last administered on 10/27/16 20:32; Admin Dose 100 MLS/HR; Start 10/24/16 at 21:00; Stop at 18:00 Oxycodone HCl (Roxicodone) 5 mg Q4H PRN PO PAIN Last administered on 10/28/16 09:22; Admin Dose 5 MG; Start 10/26/16 at 18:00 Lorazepam (Ativan) 0.5 mg Q6H PRN PO anxiety; Start 10/26/16 at 17:00 Insulin Glargine (Lantus) 20 unit DAILY@08 SC Last administered on 10/28/16 08 :25; Admin Dose 20 UNIT; Start 10/27/16 at 08:00 Furosemide (Lasix) 40 mg DAILY PO Last administered on 10/28/16 08:27; Admin Dose 40 MG; Start 10/28/16 at 09:00 ENOCH YUN NP Oct 28, 2016 13:21
[2016-10-28] MEDS ORDERED: ALUMINUM HYDROXIDE 30 ML CUP PO PRN (15:00)
[2016-10-28] MEDS ORDERED: AL HYDROX/MG HYDROX/SIMETH 30 ML CUP PO PRN (15:30)
[2016-10-28] MEDS: CEFTRIAXONE 1 GM/50 ML (PMX) 50 ML IVPB SCH (20:59)
[2016-10-28] MEDS: TAMSULOSIN (SR) 0.4 MG CAP PO SCH (20:59)
[2016-10-29] VITALS (10 sets, daily range): BP systolic 109–146; BP diastolic 54–77; PULSE 70–106; RESP 17–18
[2016-10-29] MEDS: VANCOMYCIN 2 GM in SOD CHLORIDE 0.9% 500 ML IVPB SCH (05:57)
[2016-10-29] MEDS: PANTOPRAZOLE (EC) 40 MG TAB PO SCH (06:00)
--- NOTE | 2016-10-29 07:28 | PN ---
DATE: 10/28/2016 SUBJECTIVE: Patient seen. I went with the nurse, Leni, so she can be a witness when I talk to the patient. I tried to explain to him what is going on with his current medical issues. I spoke with the case resource manager, as there is a bed available at [facility] . The patient was in agreement to go there. He did sustain a fall a few days ago and has been comp laining of right elbow pain. He was refusing an x-ray. There is a patch placed on it and the arm i s being elevated. The patient remains on IV antibiotics. Unfortunately, labs this morning show a d rop in the patient's hemoglobin from 9.6 on the 13th to 7.9. I spoke with the lab, and a CBC will be repeated. If it is a mistake, the patient can be discharged with IV antibiotics to a skilled [facility] facility. In addition, the patient was upset at me again for asking physical therapy to see baudilio hdz without asking his permission. Anyway, I tried to explain to him that we want him to participate and to get stronger and work with physical therapy. Also, the [facility] wanted us to obtain a physical therapy evaluation. The patient overall is slightly less confused today. We had overall a reasonable conversation. Again, the nurse was at the bedside: PHYSICAL EXAMINATION: VITAL SIGNS: Temperature is 97.7, pulse 92, respirations 18, blood pressure is 112/45, saturations are 95%. GENERAL: The patient is in no acute distress, morbidly obese, pale. CARDIOVASCULAR: S1 and S2. LUNGS: Decreased bilaterally. EXTREMITIES: Right elbow slightly swollen and slight pain upon movement. The lower extremities just trace edema. The erythema is basically resolving. LABORATORY: This morning shows a white count of 9.7, normal. Hemoglobin is low at 7.9, with a tamara tocrit of 24.5, platelet count of 174, neutrophils 78%, lymphocytes 8%. Chemistry: Sodium is 138, potassium 4.6, chloride 103, bicarbonate 27, BUN is 25, creatinine is 1.84, better despite resuming the patient's oral Lasix. The patient's glucose is 155. Last glucose was 165. MEDICATIONS: Include: 1. Lasix 40 mg daily. Actually today is the first dose of getting it, so that is still not shown on the labs. 2. Lantus 20 units daily. 3. Oxycodone only p.r.n., as I just discontinued the long-acting because of the patient's confusion in the last few days, so he is on oxycodone 5 mg q.4 p.r.n. 4. NovoLog 14 units before meals. 5. Ativan 0.5 q.6 p.r.n. for anxiety. 6. Vancomycin, dose per pharmacy. 7. Rocephin 1 gram q.24h. 8. Flomax 0.4 at bedtime. 9. Neurontin 200 t.i.d. 10. Aspirin 81 mg daily. 11. Vitamin D 2000 units daily. 12. Vitamin B12 1000 mcg daily. 13. Tradjenta 5 mg daily. 14. Lopressor 50 mg b.i.d. 15. Xarelto 15 mg daily at dinnertime. 16. sliding scale. 17. Protonix 40 daily. 18. Hypoglycemia protocol. 19. Zofran p.r.n. 20. Nitroglycerin p.r.n. 21. Tylenol p.r.n. 22. Colace p.r.n. 23. Milk of Magnesia p.r.n. 24. Ambien p.r.n. 25. Dilaudid p.r.n. 26. Dextrose p.r.n. ASSESSMENT AND PLAN: This is a 66-year-old, morbidly obese, male, with a history of diabe manuel mellitus, chronic pain, peripheral vascular disease, bilateral lower extremity DVTs in the past, hypertension, diabetic neuropathy, osteoarthritis, a history of noncompliance to some degree, and c hronic kidney disease, who presented with lower extremity cellulitis. 1. Lower extremity cellulitis. Remains on Rocephin and vancomycin. White count remains normal. E rythema resolving. 2. Diabetes mellitus. Continue the current regimen of Lantus and NovoLog. His p.o. intake is vari able. Will continue to monitor and increase insulin as needed. 3. Anemia. Patient with B12 deficiency, and H and H has dropped. May benefit from Epogen, as the patient has CKD. Intermittently will repeat H and H. If hemoglobin is below 8, may consider a trans fusion. I currently do not see any evidence of active bleeding. Will check stool for occult blood. 4. Acute on chronic renal insufficiency. Resolved with fluid challenge. Now I have put him back o n the Lasix secondary to a history of CHF and peripheral edema. 5. Chronic pain. P.r.n. OxyContin and Tylenol. 6. Continue aspirin for cardiac protection. 7. Physical therapy if patient will permit. 8. Benign prostatic hypertrophy. Continue Flomax. 9. Right shoulder pain and right elbow pain. Again, pain control, arm elevation and physical therap y. 10. Continue wound care to the lower extremities. DISPOSITION: Once hemoglobin level is followed. [place] is likely [place] [facility] follow. Dictated By: RANCHO ALMEIDA/OMAR Conf#: [id number] DID#: [id number]
[2016-10-29] MEDS: INSULIN ASPART [NOVOLOG] 3 ML PEN SC SCH ×7 (07:55→21:00)
[2016-10-29] MEDS: RIVAROXABAN 15 MG TABLET PO SCH (08:03)
[2016-10-29] MEDS: CHOLECALCIFEROL 2,000 UNIT CAP PO SCH (08:23)
[2016-10-29] MEDS: ASPIRIN (EC) 81 MG TAB PO SCH (08:23)
[2016-10-29] MEDS: GABAPENTIN 100 MG CAP PO SCH ×3 (08:23→21:09)
[2016-10-29] MEDS: LINAGLIPTIN 5 MG TABLET PO SCH (08:23)
[2016-10-29] MEDS: CYANOCOBALAMIN 500 MCG TAB PO SCH (08:23)
[2016-10-29] MEDS: METOPROLOL 50 MG TAB PO SCH ×2 (08:24→21:10)
[2016-10-29] MEDS: FUROSEMIDE 40 MG TAB PO SCH (08:24)
[2016-10-29] MEDS: INSULIN GLARGINE [LANtus] 3 ML PEN SC SCH (08:34)
[2016-10-29 10:26] LABS: HEMATOCRIT 25.6 % (42.0-52.0); HEMOGLOBIN 8.5 g/dl (14.0-18.0)
--- NOTE | 2016-10-29 15:59 | PN ---
DATE: 10/29/2016 SUBJECTIVE: The patient is seen. He has no specific complaints I did give him a unit of PRBC and H and H has corrected, but not adequately, from 8 to 8.5. I was not sure where that the bleeding is. I asked the nurse if he has any rectal bleeding and she stated that he had a large bowel movement y esterday and it was normal. I read the physical therapist's note which stated that the patient stat ed that he fell yesterday, but as I know, he fell about 3 days ago, and she mentioned that there is a hematoma on the right hip, or bruising, so I went to examine him and I noted a hematoma on the rig ht hip area. I moved his right lower extremity and there is definite pain. Of note, the patient did not really allow me to even talk to him or even examine him thoroughly in the past few days, as he is quite psychotic. A stat x-ray was ordered and will transfuse him 1 unit of packed red blood cell s. I spoke with the daughter, Gris, and phone number is [phone], and informed her of the abo ve. PHYSICAL EXAMINATION: VITAL SIGNS: Temperature 98.5, pulse 98, respirations 18, blood pressure 145/67, saturation 96%. GENERAL: The patient is morbidly obese, pale. CARDIOVASCULAR: S1, S2, regular rate. LUNGS: Clear. ABDOMEN: Soft, obese. EXTREMITIES: No clubbing, cyanosis, or edema. Left cellulitic area erythema is resolving. The pat ienarayan has a hematoma on the right thigh. Upon movement of this course the leg, there joint disease i n the left hip area. LABORATORY: Hemoglobin is 8.4, hematocrit 25.6. Glucose levels are good, 150, [address] readings. MEDICATIONS: Include: 1. Lasix 40 mg daily. 2. Lantus 20 units daily. 3. Oxycodone 5 mg q.4 p.r.n. 4. Insulin Aspart 14 units before meals. 5. Ativan p.r.n. 6. Vancomycin p.r.n. 7. Rocephin 1 gram q.24h. 8. Flomax 0.4 at bedtime. 9. Neurontin 200 t.i.d. 10. Aspirin 81 mg daily. 11. Vitamin D 2000 daily. 12. Vitamin B12 1000 daily. 13. Tradjenta 5 mg daily. 14. Lopressor 50 mg b.i.d. 15. The patient is on Xarelto, which I may have to hold, we will see, but the patient overall has a history of previous DVT and he is not really ambulatory, so I may just hold it for a few days. 16. Insulin Aspart per sliding scale. 17. Protonix 40 mg daily. 18. Hypoglycemia protocol as directed. 19. Zofran p.r.n. 20. Tylenol p.r.n. 21. p.r.n. 22. Milk of Magnesia p.r.n. 22. Ambien p.r.n. 23. Vancomycin p.r.n. 24. Dilaudid p.r.n. ASSESSMENT AND PLAN: This is a 66-year-old, morbidly obese male with a history of diabete s mellitus, chronic pain, peripheral vascular disease, bilateral lower extremity DVTs in the past, h ypertension, diabetic neuropathy, osteoarthritis, a history of noncompliance, a history of CKD, who presented with lower extremity cellulitis. 1. Lower extremity cellulitis. He remains on antibiotics. Erythema is resolving. The cause is diab etic. He is more prone to infection, as he has skin breakdown, with recent blistering in the left l eg. 2. Anemia. Likely secondary to his hematoma on the right thigh, with being on Xarelto. Let's hold Xarelto for a few days. Continue SCDs for DVT prophylaxis. Transfuse the patient 1 unit of PRBC. Obtain x-ray of the hip. May even consider a CT scan of the right thigh. 3. Renal insufficiency. The patient was restarted on his Lasix. Monitor kidney function. 4. Chronic pain. We are trying to limit pain medications, but he has p.r.n. oxycodone and Dilaudid . 5. Physical therapy will be beneficial, but currently he does have some bruising and pain. Will fo llow with x-ray results first. 6. Benign prostatic hypertrophy. Continue Flomax. 7. Osteoarthritis, mostly of the shoulders. 8. Disposition. Deferred for now, and will likely send him back to a correction facility soon . 9. Diabetes mellitus. Glucose levels are under control. Monitor the patient's p.o. intake. We wi ll follow. Dictated By: RANCHO ALMEIDA/OMAR Conf#: [id number] DID#: [id number]
--- NOTE | 2016-10-29 16:30 | RADRPT ---
PROCEDURE: XR Pelvis. CLINICAL INDICATION: Pelvic pain. Right hip hematoma. TECHNIQUE: Frontal view of the pelvis. Frontal and lateral images of the right hip. Total of 3 v iews.. COMPARISON: No prior studies are available for comparison. FINDINGS: There is no fracture or dislocation. There is no lytic or blastic lesion. Articular surfaces are intact. There are mild degenerative changes of the right hip with osteophytes noted. There is no right hip fracture or dislocation. The sacroiliac joints are grossly unremarkable. There are degenerative changes of the lower lumbar spine. IMPRESSION: 1. Degenerative changes of the lower lumbar spine. 2. Mild degenerative changes of the right hip. 3. Otherwise unremarkable images of the right hip and pelvis. RPTAT: QQ .Indra Muñoz MD, Date Time Electronically viewed and signed by .Indra Muñoz MD, on 10/29/2016 16:30 .R/
[2016-10-29] MEDS: CEFTRIAXONE 1 GM/50 ML (PMX) 50 ML IVPB SCH (21:08)
[2016-10-29] MEDS: oxyCODONE 5 MG TAB PO PRN (21:10)
[2016-10-29] MEDS: TAMSULOSIN (SR) 0.4 MG CAP PO SCH (21:10)
--- NOTE | 2016-10-29 21:24 | CONS ---
Date/Time of Note Date/Time of Note DATE: 10/29/16 TIME: 21:23 Assessment/Plan Assessment/Plan Chief Complaint/Hosp Course SUBJECTIVE: No acute changes. The patient looks comfortable. No fevers. ANTIMICROBIALS: 1. Vancomycin. Through 10/26==> 13.3 2. Rocephin. PHYSICAL EXAMINATION: GENERAL: This is a morbidly obese elderly man who is alert, in no distress. HEENT: Head atraumatic, normocephalic. Sclerae anicteric. Buccal mucosa dry. NECK: Obese. CHEST: Rise symmetrical. Breath sounds clear. HEART: S1, S2. ABDOMEN: Soft. Bowel sounds present. EXTREMITIES: Bilateral lower extremity edema, erythema, left more than right, improving. ASSESSMENT: 1. Left lower extremity cellulitis, improving. 2. Bilateral lower extremity chronic venous stasis. 3. Morbid obesity. 4. Acute renal failure. PLAN: Remains unchanged, continue abx, keep BLE elevated DW staff Problems: Consultation Date/Type/Reason Admit Date/Time Oct 22, 2016 at 17:09 Type of Consultation: ID Exam/Review of Systems Vital Signs Vitals Vital Signs Date Time Temp Pulse Resp B/P Pulse Ox O2 Delivery O2 Flow Rate FiO2 10/29/16 20:34 10/29/16 20:00 98.6 17 146/77 92 Intake and Output 10/28/16 10/28/16 10/29/16 15:00 23:00 07:00 Intake Total 900 ml 100 ml Output Total 800 ml 600 ml Balance 100 ml -500 ml Results Result Diagram: 10/29/16 0930 10/28/16 0620 Results 24 hrs Laboratory Tests Test 10/29/16 06:37 10/29/16 08:01 10/29/16 09:30 10/29/16 11:48 Lab Scanned Report BLOOD TRANSFUSION Bedside Glucose 124 150 Hemoglobin 8.5 L Hematocrit 25.6 L Test 10/29/16 17:50 Bedside Glucose 157 Medications Medications Current Medications Ondansetron HCl (Zofran Inj) 4 mg Q6H PRN IV NAUSEA AND/OR VOMITING; Start 10/22 at 22:00 Nitroglycerin (Nitroglycerin (Sl Tab) 0.4 Mg) 1 tab Q5M PRN SL CHEST PAIN; Start 10/22/16 at 22:00 Acetaminophen (Tylenol Tab) 650 mg Q6H PRN PO PAIN LEVEL 1-3 OR FEVER Last administered on 10/28/16 21:39; Admin Dose 650 MG; Start 10/22/16 at 22:00 Docusate Sodium (Colace) 100 mg Q12H PRN PO CONSTIPATION Last administered on 06:55; Admin Dose 100 MG; Start 10/22/16 at 22:00 Magnesium Hydroxide (Milk Of Mag) 30 ml DAILY PRN PO CONSTIPATION Last administered on 10/27/16 13:07; Admin Dose 30 ML; Start 10/22/16 at 22:00 Pantoprazole (Protonix Tab) 40 mg DAILY@06 PO Last administered on 10/28/16 05 :21; Admin Dose 40 MG; Start 10/23/16 at 06:00 Aspirin (Halfprin) 81 mg DAILY PO Last administered on 10/29/16 08:23; Admin Dose 81 MG; Start 10/23/16 at 09:00 Cholecalciferol (Vitamin D) 2,000 unit DAILY PO Last administered on 10/29/16 08:23; Admin Dose 2,000 UNIT; Start 10/23/16 at 09:00 Cyanocobalamin (Vitamin B12) 1,000 mcg DAILY PO Last administered on 10/29/16 08:23; Admin Dose 1,000 MCG; Start 10/23/16 at 09:00 Linagliptin (Tradjenta) 5 mg DAILY PO Last administered on 10/29/16 08:23; Admin Dose 5 MG; Start 10/23/16 at 09:00 Metoprolol Tartrate (Lopressor) 50 mg BID PO Last administered on 10/29/16 21: 10; Admin Dose 50 MG; Start 10/23/16 at 09:00 Tamsulosin HCl (Flomax) 0.4 mg HS PO Last administered on 10/29/16 21:10; Admin Dose 0.4 MG; Start 10/23/16 at 21:00 Zolpidem Tartrate (Ambien) 5 mg QHS PRN PO INSOMNIA; Start 10/22/16 at 22:00 Hydromorphone HCl (Dilaudid) 0.5 mg Q4H PRN IV PAIN; Start 10/22/16 at 22:00 Miscellaneous Information 1 ea NOTE XX ; Start 10/22/16 at 22:30 Glucose (Glutose) 15 gm Q15M PRN PO DECREASED GLUCOSE; Start 10/22/16 at 22:30 Glucose (Glutose) 22.5 gm Q15M PRN PO DECREASED GLUCOSE; Start 10/22/16 at 22:30 Dextrose (D50w Syringe) 25 ml Q15M PRN IV DECREASED GLUCOSE; Start 10/22/16 at 22:30 Dextrose (D50w Syringe) 50 ml Q15M PRN IV DECREASED GLUCOSE; Start 10/22/16 at 22:30 Glucagon (Glucagen) 1 mg Q15M PRN IM DECREASED GLUCOSE; Start 10/22/16 at 22:30 Glucose (Glutose) 15 gm Q15M PRN BUCCAL DECREASED GLUCOSE; Start 10/22/16 at 22: 30 Gabapentin 200 mg 200 mg TID PO Last administered on 10/29/16 21:09; Admin Dose 200 MG; Start 10/23/16 at 13:00 Vancomycin HCl 2 gm/Sodium Chloride 500 ml @ 125 mls/hr Q24H IVPB Last administered on 10/29/16 05:57; Admin Dose 125 MLS/HR; Start 10/25/16 at 06:00 Ceftriaxone Sodium (Rocephin) 50 ml @ 100 mls/hr Q24H IVPB Last administered on 10/29/16 21:08; Admin Dose 100 MLS/HR; Start 10/24/16 at 21:00; Stop at 18:00 Oxycodone HCl (Roxicodone) 5 mg Q4H PRN PO PAIN Last administered on 10/29/16 21:10; Admin Dose 5 MG; Start 10/26/16 at 18:00 Lorazepam (Ativan) 0.5 mg Q6H PRN PO anxiety; Start 10/26/16 at 17:00 Insulin Glargine (Lantus) 20 unit DAILY@08 SC Last administered on 10/29/16 08 :34; Admin Dose 20 UNIT; Start 10/27/16 at 08:00 Furosemide (Lasix) 40 mg DAILY PO Last administered on 10/29/16 08:24; Admin Dose 40 MG; Start 10/28/16 at 09:00 Al Hydrox/Mg Hydrox/Simethicone (Mag-Al Plus) 30 ml Q6H PRN PO DISTENSION/GAS/ BLOATING; Start 10/28/16 at 15:30 Miscellaneous Information (*Rx Drug Level Order Reminder*) VANCO TROUGH @ 0, 500 ON... ONCE ONCE XX ; Start 10/30/16 at 05:00; Stop 10/30/16 at 05:01 ENOCH YUN NP Oct 29, 2016 21:24
[2016-10-30] VITALS (7 sets, daily range): BP systolic 125–149; BP diastolic 62–85; PULSE 76–94; RESP 16–18
[2016-10-30] MEDS: oxyCODONE 5 MG TAB PO PRN (03:12)
[2016-10-30] MEDS: PANTOPRAZOLE (EC) 40 MG TAB PO SCH (05:32)
[2016-10-30 07:48] LABS: ADD SCAN DIFF NO
[2016-10-30 07:54] LABS: BASOPHILS % 0.3 % (0.0-2.0); EOSINOPHILS # 0.2 10^3/ul (0.0-0.5); EOSINOPHILS % 1.4 % (0.0-7.0); HEMATOCRIT 31.3 % (42.0-52.0); LYMPHOCYTES # 0.7 10^3/ul (0.8-2.9); LYMPHOCYTES % 5.8 % (15.0-51.0); MEAN CORPUSCULAR HEMOGLOBIN 28.9 pg (29.0-33.0); MEAN CORPUSCULAR HGB CONC 31.9 g/dl (32.0-37.0); MEAN CORPUSCULAR VOLUME 90.5 fl (82.0-101.0); MEAN PLATELET VOLUME 10.1 fl (7.4-10.4); MONOCYTE # 1.2 10^3/ul (0.3-0.9); MONOCYTES % 9.5 % (0.0-11.0); NEUTROPHIL # 10.5 10^3/ul (1.6-7.5); NEUTROPHILS % 82.1 % (39.0-77.0); PLATELET COUNT 228 10^3/UL (140-415); RED BLOOD COUNT 3.46 10^6/ul (4.70-6.10); RED CELL DISTRIBUTION WIDTH 15.1 % (11.5-14.5); WHITE BLOOD COUNT 12.7 10^3/ul (4.8-10.8)
[2016-10-30 08:21] LABS: ALBUMIN/GLOBULIN RATIO 1.25; BILIRUBIN,INDIRECT 0.5 mg/dl (0-1.1); BILIRUBIN,TOTAL 0.5 mg/dl (0.2-1.3); CALCIUM 8.8 mg/dl (8.4-10.2); CREATININE 1.8 mg/dl (0.61-1.24); POTASSIUM 4.3 mmol/L (3.5-5.1); TOTAL PROTEIN 7.2 g/dl (6.1-8.1)
[2016-10-30 08:57] LABS: MAGNESIUM 2.3 mg/dl (1.7-2.5); PHOSPHORUS 3.9 mg/dl (2.5-4.9)
[2016-10-30 09:28] LABS: CARCINOEMBRYONIC ANTIGEN 0.8 ng/ml (0.0-5.0)
--- NOTE | 2016-10-30 09:37 | RADRPT ---
PROCEDURE: CT brain without contrast CLINICAL INDICATION: Increasing confusion TECHNIQUE: CT of the brain without contrast performed on a multidetector CT scanner, with multiplan ar reformats. One or more of the following dose reduction techniques were used: Automated exposure control, adjustment in mA and / or kV according to patient size, use of iterative reconstructive jarred hnique. CTDIvol = 45 mGy; DLP = 720 mGy-cm. COMPARISON: 04/12/2016 FINDINGS: No acute intracranial hemorrhage is identified. No extra-axial fluid collection is seen. There is no mass effect. No midline shift is identified. The ventricles and sulci are mild to moderately enlarged compatible with volume loss. There are mild areas of hypodensity in the periventricular - deep white matter which are nonspecific but suggestive of chronic small vessel ischemic changes. Michelle-white differentiation is preserved. Atherosclerotic calcifications of the intracranial internal carotid arteries are noted. Osseous structures are unremarkable. Mild right maxillary sinus mucosal thickening is seen. IMPRESSION: 1. No evidence of acute intracranial pathology. 2. Mild to moderate volume loss, with mild chronic small vessel ischemic changes. RPTAT: HH .Boom Felix MD, MD Date Time Electronically viewed and signed by .Boom Felix MD, MD on 10/30/2016 09:36 .O/
[2016-10-30] MEDS: INSULIN GLARGINE [LANtus] 3 ML PEN SC SCH (10:07)
[2016-10-30] MEDS: INSULIN ASPART [NOVOLOG] 3 ML PEN SC SCH ×7 (10:08→21:00)
[2016-10-30] MEDS: GABAPENTIN 100 MG CAP PO SCH ×3 (10:17→21:18)
[2016-10-30] MEDS: METOPROLOL 50 MG TAB PO SCH ×2 (10:17→21:19)
[2016-10-30] MEDS: CYANOCOBALAMIN 500 MCG TAB PO SCH (10:18)
[2016-10-30] MEDS: FUROSEMIDE 40 MG TAB PO SCH (10:18)
[2016-10-30] MEDS: CHOLECALCIFEROL 2,000 UNIT CAP PO SCH (10:19)
[2016-10-30] MEDS: LINAGLIPTIN 5 MG TABLET PO SCH (10:19)
[2016-10-30] MEDS: ASPIRIN (EC) 81 MG TAB PO SCH (10:19)
--- NOTE | 2016-10-30 10:23 | RADRPT ---
PROCEDURE: CT of the right thigh without contrast CLINICAL INDICATION: Hematoma TECHNIQUE: CT scan of the right thigh was performed . No IV contrast was administered. Coronal a nd sagittal reformatted images were obtained from the axial source images. Images were reviewed on a high-resolution PACS workstation. The calculated radiation dose measures 1255.89 mGy centimeters. The CTDI measures 18.09 mGy. One or more of the following dose reduction techniques were used: - Automated exposure control. - Adjustment of the mA and/or kV according to patient size . - Use of iterative reconstruction technique. COMPARISON: Radiographs from 10/29/2016 FINDINGS: Soft tissues: There is a dense oval shaped collection superficial to the iliotibial tract well seen on the coronal series image 145 and axial series image 176 measuring 8.0 x 11.8 x 3.8 cm (AP by CC by TR) there is a mild amount of subcutaneous stranding surrounding this lesion as well as skin thickening. This p resumably related to the patients hematoma, although a superimposed infection is difficult to exclud e on CT. No soft tissue gas is seen. Atherosclerotic vascular calcifications are identified. Osseous structures: There is no acute osseous abnormality or evidence of fracture. No cortical destruction. Mild arthr osis noted about the right hip. IMPRESSION: 1. 8.0 x 11.8 x 3.8 cm oval-shaped collection in the subcutaneous tissues just superficial to the il iotibial tract presumably representing the patient's hematoma versus collection from degloving injur y/Kelly Blanca type lesion, depending on the injury mechanism. 2. Nonspecific surrounding subcutaneous stranding and skin thickening. An infected collection saray ot be excluded on the basis of CT alone. 3. No acute osseous abnormality. RPTAT: UU .Jay Ulloa MD, MD Date Time Electronically viewed and signed by .Jay Ulloa MD, MD on 10/30/2016 10:22 .d/
[2016-10-30] MEDS ORDERED: QUETIAPINE 25 MG TAB PO SCH (13:00)
[2016-10-30] MEDS: VANCOMYCIN 1.5 GM in SOD CHLORIDE 0.9% 250 ML IVPB SCH ×2 (13:00→14:48)
--- NOTE | 2016-10-30 13:57 | PN ---
DATE: 10/30/2016 SUBJECTIVE: Nursing staff was not comfortable with patient being on the medical/surgical floor as glenda coronado was confused and almost hallucinating. The patient is now in the telemetry unit. Daughter i s at bedside. Upon meeting with the daughter and with the patient's nurse, I entered the room, the patient remains very upset at me, threatening me. Since yesterday, the patient underwent multiple t ests including a CT scan of the brain, which did not show any evidence of acute intracranial patholo gy. There is mild to moderate volume loss with mild chronic small vessel ischemic changes. I also scanned his right thigh as he had a hematoma after his recent fall, and the patient also was on Xare lto, but we stopped the Xarelto. CAT scan shows 8 x 11.8 x 3.8 cm oval-shaped collection in the sub cutaneous tissue just superficial to the iliotibial tract, presumably representing the patient's hem atoma versus collection from degloving injury Kelly-Blanca type lesion depending on the injury mec hanism. Nonspecific surrounding subcutaneous stranding and skin thickening. An infected collection cannot be excluded on the bases of a CT scan alone. The patient still is not letting me examine hi m, as the nursing staff also reported that his right elbow is more painful. An x-ray was ordered as well. I discussed the case with the daughter who requested a psychiatric evaluation. We will try to obtain a telepsych and I will also consult a neurologist. H and H is now stable after transfusio n and the patient is off blood thinners as patient has history of previous DVT, but he is on SCDs fo r deep venous thrombosis prophylaxis. Overall, the patient does not look to be in distress. PHYSICAL EXAMINATION: VITAL SIGNS: Temperature 98.1, pulse 65, respirations 16, blood pressure 143/62, saturation is 94%. GENERAL: The patient is in no acute distress, morbidly obese The patient is pale. EXTREMITIES: I was able only to examine his lower extremities. They did not look edematous or with any significant erythema. Again, limited exam as the patient is not allowing me to examine him. In and out yesterday was 1350 in, out 2100, he is negative 750. This patient is diuresing well with his current dose of Lasix. LABORATORY DATA: White count is 12.7, higher, hemoglobin 10, hematocrit 31, platelet count 228, josé luis trophils 82%, lymphocytes 6%. Chemistry: Sodium 139, potassium 4.6, chloride 100, bicarbonate 28, BUN is 27, creatinine 1.8, glucose of 203. Last glucose level was 183. CEA 0.8. AST 14, ALT 25, a lkaline phosphatase 68. MRSA screening was negative. MEDICATIONS: 1. Vancomycin IV dose per pharmacy. 2. Lasix 40 daily. 3. Lantus 20 units daily. 4. Oxycodone 5 mg q.4h. p.r.n., which I will try to reduce any opioids. 5. Insulin aspart 14 units before meals. 6. Ativan 0.5 p.o. q.6h. p.r.n. 7. Ceftriaxone 1 gram q.24h. 8. Flomax 0.4 at bedtime. 9. Neurontin 200 t.i.d. 10. Aspirin 81 mg daily. 11. Vitamin D 2000 daily. 12. Vitamin B12 1000 daily. 13. Tradjenta 5 mg daily. 14. Lopressor 50 b.i.d. 15. Insulin aspart per sliding scale. 16. Protonix 40 mg daily. 17. Hypoglycemia protocol as directed.. 18. Zofran. 19. Nitroglycerin. 20. Tylenol. 21. Colace. 22. Milk of magnesia. 23. Ambien. 24. Dilaudid 0.5 q.4h. p.r.n. ASSESSMENT AND PLAN: This is a very unfortunate 66-year-old morbidly obese male with hist ory of diabetes mellitus, chronic pain, peripheral vascular disease, bilateral lower extremity DVTs in the past, hypertension, diabetic neuropathy, osteoarthritis, history of noncompliance, history of chronic kidney disease, who presented with lower extremity cellulitis. 1. Lower extremity cellulitis. I would state that resolved. Remains on vancomycin and Rocephin pe r ID. 2. Anemia, likely from his right thigh hematoma, now off blood thinners. Hemoglobin and hematocrit corrected after transfusion. We will monitor. 3. Right thigh hematoma. Noted CT scan results. We will consult orthopedics just to see if there is any intervention that needs to be done or just close monitoring. It is most likely the blood gallo l be absorbed. There is no evidence of fracture on any of the imaging tests done. 4. Right elbow pain. We will obtain an x-ray of the right elbow again, also to follow. 5. Psychosis. Etiology may be hospital related, medications related, underlying psychiatric disord er. I will start the patient on Seroquel 25 mg b.i.d. We will consult telepsychiatry. We will cons ult neurology. CT scan of the brain overall unremarkable for any acute pathology. 6. Generalized weakness, debilitated state. Physical therapy as tolerated. This patient has refus ed many times therapy. This is very important for him to get out of bed, that will improve his prog nosis. 7. Diabetes mellitus. Glucose levels are adequate. Continue current regimen. Last glucose levels are as follows: 183, 187, 180. No episodes of hypoglycemia. Case discussed with daughter at bedside. Case discussed with the patient's nurse, who is also the sofya campbell nurse. This is quite a difficult situation. We will ask executive secretary social welfare to assist as well in this condition. We will follow. Dictated By: RANCHO ALMEIDA/OMAR Conf#: [id number] DID#: [id number]
--- NOTE | 2016-10-30 14:52 | PSY ---
Date/Time of Note Date/Time of Note DATE: 10/30/16 TIME: 17:44 Psychiatric Subjective Eval Consent Pt consented to telemedicine: Yes Subjective Evaluation Patient location: inpatient Chief Complaint: BIB RA FOR EVAL OF BILAT LEG REDNESS SWELLING AND WEAKNESS. History of present illness HPI: The patient is a 66 yo male with no formal psych hx though he does, by report, (MD spoke with pt, pt's daughter, and the MD) have a chronic history of being somewhat uncooperative. By reports, pt has been unusually uncooperative, not making sense, speaking about jew and other phenomena. MD tried tospeak with pt but he was evasive, did not answer any question except with a question (almost the same question). The pt's daughter was there and said the pt did not recognize her which is very unlike him. When MD asked pt the date he told MD [place] at his watch. Past Psych Hx: no formal hx PMHx: pt has DM, cellulitis (reason for being in hospital) Meds: see list All: nkda MSE: overweight, lying in bed, unusually happy, making constant jokes and fund of MD, disorganized and illogical, no avh unable to btain more info due to his inability to keep on subject or answer any qeustions, very distractible and poor attention Ip: 66 yo male with delirium -avoid any benzodiazepines or opioids as they will make delirium worse -do full infectius workup as that would make delirium worse -treat all medical problems including renal insufficiency and high blood glucose as those would worsen condition -check tsh, b12, rpr, ammonia -CT was normal, if mental status changes again would repeat -d/c all non essential meds -stop quetiapine and ativan -start zyprexa 2.5mg tid with a 2.5mg prn -psych should follow daily as delirium is a serious medical condition that requires psych input Medical history Problems Medical Problems: (1) Anemia Status: Acute (2) ARF (acute renal failure) Status: Acute (3) Cellulitis Status: Acute (4) Cellulitis Status: Acute (5) Dizziness Status: Acute (6) Hyperglycemia Status: Acute (7) Hyperkalemia Status: Acute (8) Left leg cellulitis Status: Acute (9) Normocytic anemia Status: Acute (10) Renal insufficiency Status: Acute (11) Uncontrolled diabetes mellitus Status: Acute Allergies: Coded Allergies: No Known Allergy (Unverified , 10/22/16) Psychiatric Objective Eval Mental Status Examination: Laboratory Results Laboratory Tests Test 10/28/16 17:31 10/28/16 21:05 10/29/16 06:37 10/29/16 08:01 Bedside Glucose 127mg/dL 96mg/dL 124mg/dL Lab Scanned Report BLOOD [id number] Test 10/29/16 09:30 10/29/16 11:48 10/29/16 17:50 10/29/16 22:04 Hemoglobin 8.5g/dl Hematocrit 25.6% Bedside Glucose 150mg/dL 157mg/dL 180mg/dL Test 10/30/16 07:41 10/30/16 07:46 10/30/16 12:23 White Blood Count 12.710^3/ul Red Blood Count 3.4610^6/ul Hemoglobin 10.0g/dl Hematocrit 31.3% Mean Corpuscular Volume 90.5fl Mean Corpuscular Hemoglobin 28.9pg Mean Corpuscular Hemoglobin Concent 31.9g/dl Red Cell Distribution Width 15.1% Platelet Count 42350^3/UL Mean Platelet Volume 10.1fl Neutrophils % 82.1% Lymphocytes % 5.8% Monocytes % 9.5% Eosinophils % 1.4% Basophils % 0.3% Nucleated Red Blood Cells % 0.0/100WBC Neutrophils # 10.510^3/ul Lymphocytes # 0.710^3/ul Monocytes # 1.210^3/ul Eosinophils # 0.210^3/ul Basophils # 0.010^3/ul Nucleated Red Blood Cells # 0.010^3/ul Sodium Level 139mmol/L Potassium Level 4.3mmol/L Chloride Level 100mmol/L Carbon Dioxide Level 28mmol/L Anion Gap 15 Blood Urea Nitrogen 27mg/dl Creatinine 1.80mg/dl Glucose Level 203mg/dl Calcium Level 8.8mg/dl Phosphorus Level 3.9mg/dl Magnesium Level 2.3mg/dl Total Bilirubin 0.5mg/dl Direct Bilirubin 0.00mg/dl Indirect Bilirubin 0.5mg/dl Aspartate Amino Transf (AST/SGOT) 14IU/L Alanine Aminotransferase (ALT/SGPT) 25IU/L Alkaline Phosphatase 68IU/L Total Protein 7.2g/dl Albumin 4.0g/dl Globulin 3.20g/dl Albumin/Globulin Ratio 1.25 Carcinoembryonic Antigen 0.8ng/ml Vancomycin Level Trough 17.9ug/ml Bedside Glucose 187mg/dL 183mg/dL HEATHER GONZALEZ Oct 30, 2016 14:52
[2016-10-30] MEDS ORDERED: OLANZAPINE 2.5 MG TAB PO PRN (15:30)
--- NOTE | 2016-10-30 19:13 | RADRPT ---
PROCEDURE: XR Elbow 2 Views. CLINICAL INDICATION: Right elbow pain and trauma. TECHNIQUE: AP and lateral views of the right elbow performed. COMPARISON: None. FINDINGS: Diffuse osteopenia is identified. The osseous structures appear intact. No destructive bony lesion s are observed. Interosseous spaces appear normal. Soft tissues surrounding the elbow are unremark able. IMPRESSION: Osteopenia. No visualized traumatic injury. If there is high clinical suspicion for traumatic injury, further evaluation with CT should be consi dered. RPTAT: AA .Betito Beaulieu MD, MD Date Time Electronically viewed and signed by .Betito Beaulieu MD, on 10/30/2016 15:45 .P/
--- NOTE | 2016-10-30 20:47 | CONS ---
Date/Time of Note Date/Time of Note DATE: 10/30/16 TIME: 19:28 Assessment/Plan Assessment/Plan Chief Complaint/Hosp Course ID PROGRESS NOTE TOTAL ABX DAY #Zyvox + Invanz 24H INTERVAL SUMMARY * REsting comfortably, no fevers, VSS, NAD * 10/30/16 0741 10/30/16740 PHYSICAL EXAMINATION: GENERAL: VSS, afebrile, resting comfortably HEENT: Unremarkable NECK: WNL CHEST: Equal chest rise bilaterally, without dyspnea on observation / Vented HEART: Pulse RRR ABDOMEN: Soft EXTREMITIES: Warm w/BLEXT chronic hyperpigmentation pre-tibial chronic venous stasis changes, LLEXT erythema SKIN: Warm, dry ID ASSESSMENT: 66 yoMorbid Obese M admitted with: 1. SIRS w/ low grade temps TMax 99.5, Leukocytosis 2/2 #2 2. Left lower extremity cellulitis, improving. 2. Bilateral lower extremity chronic venous stasis. 3. Fluid overload 4. Acute renal failure. 5. Hx of CAD, Hx of Mitral Valve Repair 6. HTN 7. Psych Dx NOS (-)MRSA Nares Screen INVASIVES: *PIV ABX ALLERGIES: KNDA CURRENT ABX: # Vanco IV + Ceftriaxone ID RECOMMENDATIONS: 1. Continue current ABX over the weekend 2. Will re-assess for PO ABX switch pending ID team f/u on clinical response . Problems: Consultation Date/Type/Reason Admit Date/Time Oct 22, 2016 at 17:09 Initial Consult Date Type of Consultation: ID Exam/Review of Systems Vital Signs Vitals Vital Signs Date Time Temp Pulse Resp B/P Pulse Ox O2 Delivery O2 Flow Rate FiO2 10/30/16 16:28 76 10/30/16 15:18 98.5 18 144/85 97 Intake and Output 10/29/16 10/29/16 10/30/16 15:00 23:00 07:00 Intake Total 950 ml 400 ml Output Total 1000 ml 1100 ml Balance -50 ml -700 ml Results Result Diagram: 10/30/16 0741 10/30/16 0741 Results 24 hrs Laboratory Tests Test 10/29/16 22:04 10/30/16 07:41 10/30/16 07:46 10/30/16 12:23 Bedside Glucose 180 187 183 White Blood Count 12.7 #H Red Blood Count 3.46 #L Hemoglobin 10.0 L Hematocrit 31.3 #L Mean Corpuscular Volume 90.5 Mean Corpuscular Hemoglobin 28.9 L Mean Corpuscular Hemoglobin Concent 31.9 L Red Cell Distribution Width 15.1 H Platelet Count 228 # Mean Platelet Volume 10.1 Neutrophils % 82.1 H Lymphocytes % 5.8 L Monocytes % 9.5 Eosinophils % 1.4 Basophils % 0.3 Nucleated Red Blood Cells % 0.0 Neutrophils # 10.5 H Lymphocytes # 0.7 L Monocytes # 1.2 H Eosinophils # 0.2 Basophils # 0.0 Nucleated Red Blood Cells # 0.0 Sodium Level 139 Potassium Level 4.3 Chloride Level 100 Carbon Dioxide Level 28 Anion Gap 15 Blood Urea Nitrogen 27 H Creatinine 1.80 H Glucose Level 203 Calcium Level 8.8 Phosphorus Level 3.9 Magnesium Level 2.3 Total Bilirubin 0.5 Direct Bilirubin 0.00 Indirect Bilirubin 0.5 Aspartate Amino Transf (AST/SGOT) 14 L Alanine Aminotransferase (ALT/SGPT) 25 Alkaline Phosphatase 68 Total Protein 7.2 Albumin 4.0 Globulin 3.20 Albumin/Globulin Ratio 1.25 Carcinoembryonic Antigen 0.8 Vancomycin Level Trough 17.9 Medications Medications Current Medications Ondansetron HCl (Zofran Inj) 4 mg Q6H PRN IV NAUSEA AND/OR VOMITING; Start 10/22 at 22:00 Nitroglycerin (Nitroglycerin (Sl Tab) 0.4 Mg) 1 tab Q5M PRN SL CHEST PAIN; Start 10/22/16 at 22:00 Acetaminophen (Tylenol Tab) 650 mg Q6H PRN PO PAIN LEVEL 1-3 OR FEVER Last administered on 10/28/16 21:39; Admin Dose 650 MG; Start 10/22/16 at 22:00 Docusate Sodium (Colace) 100 mg Q12H PRN PO CONSTIPATION Last administered on 06:55; Admin Dose 100 MG; Start 10/22/16 at 22:00 Magnesium Hydroxide (Milk Of Mag) 30 ml DAILY PRN PO CONSTIPATION Last administered on 10/27/16 13:07; Admin Dose 30 ML; Start 10/22/16 at 22:00 Pantoprazole (Protonix Tab) 40 mg DAILY@06 PO Last administered on 10/30/16 05 :32; Admin Dose 40 MG; Start 10/23/16 at 06:00 Aspirin (Halfprin) 81 mg DAILY PO Last administered on 10/30/16 10:19; Admin Dose 81 MG; Start 10/23/16 at 09:00 Cholecalciferol (Vitamin D) 2,000 unit DAILY PO Last administered on 10/30/16 10:19; Admin Dose 2,000 UNIT; Start 10/23/16 at 09:00 Cyanocobalamin (Vitamin B12) 1,000 mcg DAILY PO Last administered on 10/30/16 10:18; Admin Dose 1,000 MCG; Start 10/23/16 at 09:00 Linagliptin (Tradjenta) 5 mg DAILY PO Last administered on 10/30/16 10:19; Admin Dose 5 MG; Start 10/23/16 at 09:00 Metoprolol Tartrate (Lopressor) 50 mg BID PO Last administered on 10/30/16 10: 17; Admin Dose 50 MG; Start 10/23/16 at 09:00 Tamsulosin HCl (Flomax) 0.4 mg HS PO Last administered on 10/29/16 21:10; Admin Dose 0.4 MG; Start 10/23/16 at 21:00 Zolpidem Tartrate (Ambien) 5 mg QHS PRN PO INSOMNIA; Start 10/22/16 at 22:00 Hydromorphone HCl (Dilaudid) 0.5 mg Q4H PRN IV PAIN; Start 10/22/16 at 22:00 Miscellaneous Information 1 ea NOTE XX ; Start 10/22/16 at 22:30 Glucose (Glutose) 15 gm Q15M PRN PO DECREASED GLUCOSE; Start 10/22/16 at 22:30 Glucose (Glutose) 22.5 gm Q15M PRN PO DECREASED GLUCOSE; Start 10/22/16 at 22:30 Dextrose (D50w Syringe) 25 ml Q15M PRN IV DECREASED GLUCOSE; Start 10/22/16 at 22:30 Dextrose (D50w Syringe) 50 ml Q15M PRN IV DECREASED GLUCOSE; Start 10/22/16 at 22:30 Glucagon (Glucagen) 1 mg Q15M PRN IM DECREASED GLUCOSE; Start 10/22/16 at 22:30 Glucose (Glutose) 15 gm Q15M PRN BUCCAL DECREASED GLUCOSE; Start 10/22/16 at 22: 30 Gabapentin 200 mg 200 mg TID PO Last administered on 10/30/16 14:48; Admin Dose 200 MG; Start 10/23/16 at 13:00 Ceftriaxone Sodium (Rocephin) 50 ml @ 100 mls/hr Q24H IVPB Last administered on 10/29/16 21:08; Admin Dose 100 MLS/HR; Start 10/24/16 at 21:00; Stop at 18:00 Lorazepam (Ativan) 0.5 mg Q6H PRN PO anxiety; Start 10/26/16 at 17:00 Insulin Glargine (Lantus) 20 unit DAILY@08 SC Last administered on 10/30/16 10 :07; Admin Dose 20 UNIT; Start 10/27/16 at 08:00 Furosemide (Lasix) 40 mg DAILY PO Last administered on 10/30/16 10:18; Admin Dose 40 MG; Start 10/28/16 at 09:00 Al Hydrox/Mg Hydrox/ Simethicone 30 ml 30 ml Q6H PRN PO DISTENSION/GAS/BLOATING ; Start 10/28/16 at 15:30 Vancomycin HCl/ Sodium Chloride (Vancocin/NS) 250 ml @ 83.333 mls/ hr Q24H IVPB Last administered on 10/30/16 14:48; Admin Dose 83.333 MLS/HR; Start at 13:00 Olanzapine (Zyprexa) 2.5 mg TID PO ; Start 10/30/16 at 21:00 Olanzapine (Zyprexa) 2.5 mg Q6 PRN PO psychosis; Start 10/30/16 at 15:30 MONTRELL STEINER NP Oct 30, 2016 19:36
[2016-10-30] MEDS: TAMSULOSIN (SR) 0.4 MG CAP PO SCH (21:17)
[2016-10-30] MEDS: OLANZAPINE 2.5 MG TAB PO SCH (21:18)
[2016-10-30] MEDS: CEFTRIAXONE 1 GM/50 ML (PMX) 50 ML IVPB SCH (21:19)
[2016-10-31] VITALS (13 sets, daily range): BP systolic 103–150; BP diastolic 50–81; PULSE 71–94; RESP 14–20
--- NOTE | 2016-10-31 01:53 | HKNOTE ---
DATE OF SERVICE: 10/30/2016 REQUESTING PHYSICIAN: Chaitanya Hopper MD Thank you, Dr. Hopper, for asking me to see the patient with you. HISTORY OF PRESENT ILLNESS: The patient is a 66-year-old male, who has multiple medical problems in the form of cellulitis, anemia, right elbow pain, psychosis, neuritis, weakness, diabetes. The pat ient today had acute onset of lapses of confusion, in which the patient said he sees the devil and o ccasionally he makes a joke, was not clear about what he is saying. The patient complained about wo rd-finding difficulty, lack of communication, and which I got a call by Dr. Hopper for more evaluatio n and treatment. CURRENT MEDICATIONS: The patient's current medications include vancomycin IV dosed by the pharmacy, Lasix 40 mg once a day, Lantus 20 units a day, oxycodone 5 mg every 4 hours as needed, insulin 14 u nits before meals, Ativan 0.5 mg every 6 hours, ceftriaxone 1 gram every 24 hours, Flomax 0.4 mg at bedtime, Neurontin 200 mg t.i.d., aspirin 81 mg once a day, vitamin D 2000 units daily, vitamin B12 1000 daily, Lopressor 50 mg twice a day, Protonix 40 mg once a day, hypoglycemic protocol as directe d, Zofran as needed every 4 hours, nitroglycerin as needed, Tylenol, Colace, milk of magnesia as nee ded, Ambien as needed diluted 0.5 mg q.4 hours p.r.n. PAST MEDICAL HISTORY: Includes obesity, deep venous thrombosis in bilateral lower extremities, hype rtension, chronic backache, diabetes, right shoulder surgery, bilateral edema, mitral valve surgery, congestive heart failure with ejection fraction of 40%, as well as systolic and diastolic dysfuncti on. ALLERGIES: NEGATIVE FOR ANY MEDICATIONS. PAST SURGICAL HISTORY: Mitral valve replacement, appendectomy, right shoulder reconstructive surger y. PHYSICAL EXAMINATION: GENERAL: The patient looks confused, can follow some simple commands; however, he slept during the exam and did not wake up. CRANIAL NERVES: Cranial nerve II: Pupils equal on both sides. Cranial nerves III, IV, and : Ex traocular muscles intact. Cranial nerve V: Equal sensation to face. Cranial nerve VII: Symmetrica l face. Cranial nerve VIII: Decreased hearing bilaterally. Cranial nerve IX and X: Elevates [place] te. Cranial nerve XI: Elevates shoulder, 5/5. Cranial nerve XII: Straight tongue. MOTOR: Moving both upper and lower extremities against gravity. SENSATION: Decreased for glove and sock area for light touch and temperature. COORDINATION: [id number] intact. HEART: Regular rate and rhythm. LUNGS: Equal breath sounds. ABDOMEN: Soft, relaxed, nontender, nondistended. ASSESSMENT AND PLAN: The patient is a 66-year-old with: 1. Underlying acute delirium. 2. secondary to acute infection in the form of cellulitis and with recent IV antibiotic, as w ell as Rocephin. 3. Acute renal failure with improvement. 4. Anemia, likely secondary to right thigh hematoma. 5. Underlying dementia with delusions. I followed up the patient with mini mental status and he was stable, and I will consider starting baudilio m on memory medication after he is cleared from the infection. For his diabetes, we will follow up the patient's Accu-Chek and sliding scale insulin. Again, thank you Dr. Hopper, for asking me to see the patient with you, and I am going to follow up t he patient with memory, might consider Aricept for him, and for hallucinations secondary to memory, I might start him on a small dose risperidone 0.5 mg, but I will start that when the patient is marilin r from the infectious standpoint, and the delirium status which the patient is having. Dictated By: JESENIA LEGGETT/OMAR Conf#: [id number] DID#: [id number]
[2016-10-31] MEDS: PANTOPRAZOLE (EC) 40 MG TAB PO SCH (06:02)
[2016-10-31] MEDS: INSULIN ASPART [NOVOLOG] 3 ML PEN SC SCH ×7 (07:51→21:00)
[2016-10-31] MEDS: INSULIN GLARGINE [LANtus] 3 ML PEN SC SCH (08:11)
[2016-10-31] MEDS: FUROSEMIDE 40 MG TAB PO SCH (09:05)
[2016-10-31] MEDS: CHOLECALCIFEROL 2,000 UNIT CAP PO SCH (09:06)
[2016-10-31] MEDS: GABAPENTIN 100 MG CAP PO SCH ×3 (09:06→21:05)
[2016-10-31] MEDS: LINAGLIPTIN 5 MG TABLET PO SCH (09:06)
[2016-10-31] MEDS: CYANOCOBALAMIN 500 MCG TAB PO SCH (09:06)
[2016-10-31] MEDS: METOPROLOL 50 MG TAB PO SCH ×2 (09:06→21:06)
[2016-10-31] MEDS: OLANZAPINE 2.5 MG TAB PO SCH ×3 (09:06→21:06)
[2016-10-31] MEDS: ASPIRIN (EC) 81 MG TAB PO SCH (09:06)
--- NOTE | 2016-10-31 12:13 | CONS ---
Date/Time of Note Date/Time of Note DATE: 10/31/16 TIME: 12:08 Assessment/Plan Assessment/Plan Chief Complaint/Hosp Course SUBJECTIVE: No acute changes. The patient looks comfortable. No fevers. Denies pain. ANTIMICROBIALS: 1. Vancomycin. Through 10/26==> 13.3 2. Rocephin. PHYSICAL EXAMINATION: GENERAL: This is a morbidly obese elderly man who is alert, in no distress. HEENT: Head atraumatic, normocephalic. Sclerae anicteric. Buccal mucosa dry. NECK: Obese. CHEST: Rise symmetrical. Breath sounds clear. HEART: S1, S2. ABDOMEN: Soft. Bowel sounds present. EXTREMITIES: Bilateral lower extremity edema, erythema, left more than right, improving. ASSESSMENT: 1. Left lower extremity cellulitis, improving. 2. Bilateral lower extremity chronic venous stasis. 3. Morbid obesity. 4. Acute renal failure. 5. Anxiety. 6. Possible Psychiatric Diagnosis. 7. Leukocytosis. PLAN: Patients condition remains unchanged. Continue Abx. Keep BLE elevated. GI prophylaxis. DVT prophylaxis. Monitor Labs. DW staff. Problems: Consultation Date/Type/Reason Admit Date/Time Oct 22, 2016 at 17:09 Initial Consult Date Type of Consultation: ID Exam/Review of Systems Vital Signs Vitals Vital Signs Date Time Temp Pulse Resp B/P Pulse Ox O2 Delivery O2 Flow Rate FiO2 10/31/16 10:56 98.5 74 16 103/50 92 Intake and Output 10/30/16 10/30/16 10/31/16 15:00 23:00 07:00 Intake Total 1700 ml 450 ml Output Total 0 ml Balance 1700 ml 450 ml Results Result Diagram: 10/30/16 0741 10/30/16 0741 Results 24 hrs Laboratory Tests Test 10/30/16 12:23 10/30/16 21:01 10/31/16 06:07 10/31/16 07:51 Bedside Glucose 183 124 130 Lab Scanned Report BLOOD TRANSFUSION Test 10/31/16 12:02 Bedside Glucose 130 Medications Medications Current Medications Ondansetron HCl (Zofran Inj) 4 mg Q6H PRN IV NAUSEA AND/OR VOMITING; Start 10/22 at 22:00 Nitroglycerin (Nitroglycerin (Sl Tab) 0.4 Mg) 1 tab Q5M PRN SL CHEST PAIN; Start 10/22/16 at 22:00 Acetaminophen (Tylenol Tab) 650 mg Q6H PRN PO PAIN LEVEL 1-3 OR FEVER Last administered on 10/28/16 21:39; Admin Dose 650 MG; Start 10/22/16 at 22:00 Docusate Sodium (Colace) 100 mg Q12H PRN PO CONSTIPATION Last administered on 06:55; Admin Dose 100 MG; Start 10/22/16 at 22:00 Magnesium Hydroxide (Milk Of Mag) 30 ml DAILY PRN PO CONSTIPATION Last administered on 10/27/16 13:07; Admin Dose 30 ML; Start 10/22/16 at 22:00 Pantoprazole (Protonix Tab) 40 mg DAILY@06 PO Last administered on 10/31/16 06 :02; Admin Dose 40 MG; Start 10/23/16 at 06:00 Aspirin (Halfprin) 81 mg DAILY PO Last administered on 10/31/16 09:06; Admin Dose 81 MG; Start 10/23/16 at 09:00 Cholecalciferol (Vitamin D) 2,000 unit DAILY PO Last administered on 10/31/16 09:06; Admin Dose 2,000 UNIT; Start 10/23/16 at 09:00 Cyanocobalamin (Vitamin B12) 1,000 mcg DAILY PO Last administered on 10/31/16 09:06; Admin Dose 1,000 MCG; Start 10/23/16 at 09:00 Linagliptin (Tradjenta) 5 mg DAILY PO Last administered on 10/31/16 09:06; Admin Dose 5 MG; Start 10/23/16 at 09:00 Metoprolol Tartrate (Lopressor) 50 mg BID PO Last administered on 10/31/16 09: 06; Admin Dose 50 MG; Start 10/23/16 at 09:00 Tamsulosin HCl (Flomax) 0.4 mg HS PO Last administered on 10/30/16 21:17; Admin Dose 0.4 MG; Start 10/23/16 at 21:00 Zolpidem Tartrate (Ambien) 5 mg QHS PRN PO INSOMNIA; Start 10/22/16 at 22:00 Hydromorphone HCl (Dilaudid) 0.5 mg Q4H PRN IV PAIN; Start 10/22/16 at 22:00 Miscellaneous Information 1 ea NOTE XX ; Start 10/22/16 at 22:30 Glucose (Glutose) 15 gm Q15M PRN PO DECREASED GLUCOSE; Start 10/22/16 at 22:30 Glucose (Glutose) 22.5 gm Q15M PRN PO DECREASED GLUCOSE; Start 10/22/16 at 22:30 Dextrose (D50w Syringe) 25 ml Q15M PRN IV DECREASED GLUCOSE; Start 10/22/16 at 22:30 Dextrose (D50w Syringe) 50 ml Q15M PRN IV DECREASED GLUCOSE; Start 10/22/16 at 22:30 Glucagon (Glucagen) 1 mg Q15M PRN IM DECREASED GLUCOSE; Start 10/22/16 at 22:30 Glucose (Glutose) 15 gm Q15M PRN BUCCAL DECREASED GLUCOSE; Start 10/22/16 at 22: 30 Gabapentin 200 mg 200 mg TID PO Last administered on 10/31/16 09:06; Admin Dose 200 MG; Start 10/23/16 at 13:00 Ceftriaxone Sodium (Rocephin) 50 ml @ 100 mls/hr Q24H IVPB Last administered on 10/30/16 21:19; Admin Dose 100 MLS/HR; Start 10/24/16 at 21:00; Stop at 18:00 Lorazepam (Ativan) 0.5 mg Q6H PRN PO anxiety; Start 10/26/16 at 17:00 Insulin Glargine (Lantus) 20 unit DAILY@08 SC Last administered on 10/31/16 08 :11; Admin Dose 20 UNIT; Start 10/27/16 at 08:00 Furosemide (Lasix) 40 mg DAILY PO Last administered on 10/31/16 09:05; Admin Dose 40 MG; Start 10/28/16 at 09:00 Al Hydrox/Mg Hydrox/ Simethicone 30 ml 30 ml Q6H PRN PO DISTENSION/GAS/BLOATING ; Start 10/28/16 at 15:30 Vancomycin HCl/ Sodium Chloride (Vancocin/NS) 250 ml @ 83.333 mls/ hr Q24H IVPB Last administered on 10/30/16 14:48; Admin Dose 83.333 MLS/HR; Start at 13:00 Olanzapine (Zyprexa) 2.5 mg TID PO Last administered on 6/18/17at 09:06; Admin Dose 2.5 MG; Start 10/30/16 at 21:00 Olanzapine (Zyprexa) 2.5 mg Q6 PRN PO psychosis; Start 10/30/16 at 15:30 ELIEZER SOTELO NP Oct 31, 2016 12:13
--- NOTE | 2016-10-31 13:36 | PN ---
DATE: 10/31/2016 SUBJECTIVE: Patient seen. I entered the room with the nursing staff. The patient asked me to teja dennison I appreciate tele-psych evaluation yesterday. Zyprexa was recommended. The patient was diagnos ed with delirium. I just met some other friends who know him very well. I appreciate also Dr. Michael sosa neuro psych eval. Recommendations were reviewed. PHYSICAL EXAMINATION: VITAL SIGNS: Temperature 98.5, pulse 74, respirations 16, blood pressure 103/50, saturation 92%. GENERAL: No acute distress. HEENT: Normocephalic, atraumatic, morbidly obese. Unable to examine. LABORATORY DATA: No new labs today. Last glucose level 121, 124, 183. MEDICATIONS: 1. Zyprexa 2.5 mg t.i.d. 2. Zyprexa 2.5 q.6h. p.r.n. 3. Vancomycin IV dose per pharmacy. 4. ____q.6h. p.r.n. 5. Lasix 40 mg daily. 6. Lantus 20 units daily. 7. Insulin aspart 14 units q.a.c. meals. 8. Ativan 0.5 q.6h. p.r.n. for anxiety. 9. Rocephin 1 gram q.24 hours. 10. Flomax 0.4 at bedtime. 11. Neurontin 200 t.i.d. 12. Aspirin 81 mg daily. 13. Vitamin D 2000 daily. 14. Vitamin B12 1000 daily. 15. Tradjenta 5 mg b.i.d. 16. ____. 17. Insulin aspart per sliding scale. 18. Protonix 40 mg daily. 19. Hypoglycemia protocol as directed. 20. Zofran p.r.n. 21. Nitroglycerin ____. 22. Tylenol p.r.n. 23. Colace p.r.n. 24. Milk of Magnesia p.r.n. 25. ____ p.r.n. 26. Vancomycin as directed. 27. Dilaudid p.r.n. Right elbow x-ray showed no visualized traumatic injury. There is osteopenia. If there is high cl inical suspicion for traumatic injury, further evaluation with CT should be considered. MRSA screen ing is negative: ASSESSMENT AND PLAN: This is an unfortunate 66-year-old morbidly obese male with history of diabetes mellitus, chronic pain, peripheral vascular disease, bilateral lower extremity DVT in th e past, hypertension, diabetic neuropathy, osteoarthritis, history of noncompliance, overall. Also, history of CKD who presented with lower extremity cellulitis. 1. Respiratory. Stable. Patient with no cough, no complaints of shortness of breath per nursing s taff. 2. Cardiovascular. The patient with history of lower extremity deep venous thrombosis, currently o ff blood thinners secondary to right thigh hematoma. Continue sequential compression devices for de ep venous thrombosis prophylaxis. Vital signs are otherwise stable. 3. Infectious disease. The patient with lower extremity cellulitis. Remains on Rocephin and vanco mycin. Antibiotics are managed per ID. 4. Status post fall, right elbow pain, right thigh hematoma. Continue supportive care. Physical t herapy if the patient will allow. 5. Psychosis, likely delirium. Etiology may be multifactorial. The patient also started on Zyprex a. 6. Generalized weakness definitely needs higher level of care as patient cannot return back to the assisted living facility and transfer soon to senior living facility hopefully tomorrow, following a.m. labs. 7. Diabetes mellitus. Continue current regimen glucose levels are in the 100s. His appetite is hi s p.o. intake is variable. 8. Continue Protonix for GI prophylaxis. 9. Chronic kidney disease, stable. We will monitor electrolytes. 10. Tendency for peripheral edema with history of chronic heart failure, on Lasix daily. I appreciate social work manager, case management, noted above physicians in assisting me in the care of t his patient. We will follow. Dictated By: RANCHO ALMEIDA/OMAR Conf#: [id number] DID#: [id number]
--- NOTE | 2016-10-31 17:29 | CONS ---
Date/Time of Note Date/Time of Note DATE: 10/31/16 TIME: 17:28 Assessment/Plan Assessment/Plan Chief Complaint/Hosp Course SUBJECTIVE: No acute changes. No fevers. Eating lunch, family at bedside ANTIMICROBIALS: 1. Vancomycin. Through 10/30==> 17.9 2. Rocephin. PHYSICAL EXAMINATION: GENERAL: This is a morbidly obese elderly man who is alert, in no distress. HEENT: Head atraumatic, normocephalic. Sclerae anicteric. Buccal mucosa dry. NECK: Obese. CHEST: Rise symmetrical. Breath sounds clear. HEART: S1, S2. ABDOMEN: Soft. Bowel sounds present. EXTREMITIES: Bilateral lower extremity edema, erythema, left more than right, improving. ASSESSMENT: 1. Left lower extremity cellulitis, improving. 2. Bilateral lower extremity chronic venous stasis. 3. Morbid obesity. 4. Acute renal failure. PLAN: BLE look better, continue abx, keep BLE elevated DW staff Problems: Consultation Date/Type/Reason Admit Date/Time Oct 22, 2016 at 17:09 Type of Consultation: ID Exam/Review of Systems Vital Signs Vitals Vital Signs Date Time Temp Pulse Resp B/P Pulse Ox O2 Delivery O2 Flow Rate FiO2 10/31/16 16:30 76 10/31/16 15:58 98.1 14 150/61 99 Intake and Output 10/30/16 10/30/16 10/31/16 15:00 23:00 07:00 Intake Total 1700 ml 450 ml Output Total 0 ml Balance 1700 ml 450 ml Results Result Diagram: 10/30/16 0741 10/30/16 0741 Results 24 hrs Laboratory Tests Test 10/30/16 21:01 10/31/16 06:07 10/31/16 07:51 10/31/16 12:02 Bedside Glucose 124 130 130 Lab Scanned Report BLOOD TRANSFUSION Medications Medications Current Medications Ondansetron HCl (Zofran Inj) 4 mg Q6H PRN IV NAUSEA AND/OR VOMITING; Start 10/22 at 22:00 Nitroglycerin (Nitroglycerin (Sl Tab) 0.4 Mg) 1 tab Q5M PRN SL CHEST PAIN; Start 10/22/16 at 22:00 Acetaminophen (Tylenol Tab) 650 mg Q6H PRN PO PAIN LEVEL 1-3 OR FEVER Last administered on 10/28/16t 21:39; Admin Dose 650 MG; Start 10/22/16 at 22:00 Docusate Sodium (Colace) 100 mg Q12H PRN PO CONSTIPATION Last administered on 06:55; Admin Dose 100 MG; Start 10/22/16 at 22:00 Magnesium Hydroxide (Milk Of Mag) 30 ml DAILY PRN PO CONSTIPATION Last administered on 10/27/16 13:07; Admin Dose 30 ML; Start 10/22/16 at 22:00 Pantoprazole (Protonix Tab) 40 mg DAILY@06 PO Last administered on 10/31/16 06 :02; Admin Dose 40 MG; Start 10/23/16 at 06:00 Aspirin (Halfprin) 81 mg DAILY PO Last administered on 10/31/16 09:06; Admin Dose 81 MG; Start 10/23/16 at 09:00 Cholecalciferol (Vitamin D) 2,000 unit DAILY PO Last administered on 10/31/16 09:06; Admin Dose 2,000 UNIT; Start 10/23/16 at 09:00 Cyanocobalamin (Vitamin B12) 1,000 mcg DAILY PO Last administered on 10/31/16 09:06; Admin Dose 1,000 MCG; Start 10/23/16 at 09:00 Linagliptin (Tradjenta) 5 mg DAILY PO Last administered on 10/31/16 09:06; Admin Dose 5 MG; Start 10/23/16 at 09:00 Metoprolol Tartrate (Lopressor) 50 mg BID PO Last administered on 10/31/16 09: 06; Admin Dose 50 MG; Start 10/23/16 at 09:00 Tamsulosin HCl (Flomax) 0.4 mg HS PO Last administered on 10/30/16 21:17; Admin Dose 0.4 MG; Start 10/23/16 at 21:00 Zolpidem Tartrate (Ambien) 5 mg QHS PRN PO INSOMNIA; Start 10/22/16 at 22:00 Hydromorphone HCl (Dilaudid) 0.5 mg Q4H PRN IV PAIN; Start 10/22/16 at 22:00 Miscellaneous Information 1 ea NOTE XX ; Start 10/22/16 at 22:30 Glucose (Glutose) 15 gm Q15M PRN PO DECREASED GLUCOSE; Start 10/22/16 at 22:30 Glucose (Glutose) 22.5 gm Q15M PRN PO DECREASED GLUCOSE; Start 10/22/16 at 22:30 Dextrose (D50w Syringe) 25 ml Q15M PRN IV DECREASED GLUCOSE; Start 10/22/16 at 22:30 Dextrose (D50w Syringe) 50 ml Q15M PRN IV DECREASED GLUCOSE; Start 10/22/16 at 22:30 Glucagon (Glucagen) 1 mg Q15M PRN IM DECREASED GLUCOSE; Start 10/22/16 at 22:30 Glucose (Glutose) 15 gm Q15M PRN BUCCAL DECREASED GLUCOSE; Start 10/22/16 at 22: 30 Gabapentin 200 mg 200 mg TID PO Last administered on 10/31/16 12:04; Admin Dose 200 MG; Start 10/23/16 at 13:00 Ceftriaxone Sodium (Rocephin) 50 ml @ 100 mls/hr Q24H IVPB Last administered on 10/30/16 21:19; Admin Dose 100 MLS/HR; Start 10/24/16 at 21:00; Stop at 18:00 Lorazepam (Ativan) 0.5 mg Q6H PRN PO anxiety; Start 10/26/16 at 17:00 Insulin Glargine (Lantus) 20 unit DAILY@08 SC Last administered on 10/31/16 08 :11; Admin Dose 20 UNIT; Start 10/27/16 at 08:00 Furosemide (Lasix) 40 mg DAILY PO Last administered on 10/31/16 09:05; Admin Dose 40 MG; Start 10/28/16 at 09:00 Al Hydrox/Mg Hydrox/ Simethicone 30 ml 30 ml Q6H PRN PO DISTENSION/GAS/BLOATING ; Start 10/28/16 at 15:30 Vancomycin HCl/ Sodium Chloride (Vancocin/NS) 250 ml @ 83.333 mls/ hr Q24H IVPB Last administered on 10/30/16 14:48; Admin Dose 83.333 MLS/HR; Start at 13:00 Olanzapine (Zyprexa) 2.5 mg TID PO Last administered on 10/31/16 12:05; Admin Dose 2.5 MG; Start 10/30/16 at 21:00 Olanzapine (Zyprexa) 2.5 mg Q6 PRN PO psychosis; Start 10/30/16 at 15:30 ENOCH YUN NP Oct 31, 2016 17:29
[2016-10-31] MEDS: TAMSULOSIN (SR) 0.4 MG CAP PO SCH (21:05)
[2016-11-01] VITALS (11 sets, daily range): BP systolic 116–146; BP diastolic 61–76; PULSE 83–94; RESP 17–20
[2016-11-01] MEDS: PANTOPRAZOLE (EC) 40 MG TAB PO SCH (06:05)
[2016-11-01 06:39] LABS: ADD SCAN DIFF NO
[2016-11-01 06:52] LABS: BASOPHIL # 0.1 10^3/ul (0.0-0.1); BASOPHILS % 0.6 % (0.0-2.0); EOSINOPHILS # 0.5 10^3/ul (0.0-0.5); EOSINOPHILS % 4.9 % (0.0-7.0); HEMATOCRIT 29.8 % (42.0-52.0); HEMOGLOBIN 9.5 g/dl (14.0-18.0); LYMPHOCYTES # 0.7 10^3/ul (0.8-2.9); LYMPHOCYTES % 7.3 % (15.0-51.0); MEAN CORPUSCULAR HEMOGLOBIN 29.1 pg (29.0-33.0); MEAN CORPUSCULAR HGB CONC 31.9 g/dl (32.0-37.0); MEAN CORPUSCULAR VOLUME 91.4 fl (82.0-101.0); MEAN PLATELET VOLUME 10.1 fl (7.4-10.4); MONOCYTE # 0.8 10^3/ul (0.3-0.9); MONOCYTES % 8.7 % (0.0-11.0); NEUTROPHIL # 7.3 10^3/ul (1.6-7.5); NEUTROPHILS % 77.5 % (39.0-77.0); PLATELET COUNT 279 10^3/UL (140-415); RED BLOOD COUNT 3.26 10^6/ul (4.70-6.10); RED CELL DISTRIBUTION WIDTH 14.6 % (11.5-14.5); WHITE BLOOD COUNT 9.4 10^3/ul (4.8-10.8)
[2016-11-01 07:03] LABS: MAGNESIUM 2.2 mg/dl (1.7-2.5); PHOSPHORUS 3.9 mg/dl (2.5-4.9)
[2016-11-01 07:09] LABS: ALBUMIN 3.4 g/dl (3.3-4.9); ALBUMIN/GLOBULIN RATIO 1.13; BILIRUBIN,INDIRECT 0.5 mg/dl (0-1.1); BILIRUBIN,TOTAL 0.5 mg/dl (0.2-1.3); CALCIUM 8.8 mg/dl (8.4-10.2); CREATININE 1.66 mg/dl (0.61-1.24); POTASSIUM 3.8 mmol/L (3.5-5.1); TOTAL PROTEIN 6.4 g/dl (6.1-8.1)
--- NOTE | 2016-11-01 08:00 | PN ---
DATE: 10/31/2016 REFERRING PHYSICIAN: Dr. Hopper Thank you, Dr. Hopper, for asking me. The patient is a 66-year-old male who has: 1. Acute delirium status, probably secondary to underlying infection like cellulitis and IV antibio tic ____ the patient with IV medication until he cleared from the infection. 2. Underlying dementia with delusion, probably secondary to underlying Alzheimer disease . Will fo llow up the patient with mini mental status when he is stable and might start him on Aricept when he is stable. 3. Anemia, probably secondary to the hematoma the patient has. 4. Underlying acute renal insufficiency. Dictated By: JESENIA LEGGETT/OMAR Conf#: [id number] DID#: [id number]
[2016-11-01] MEDS: OLANZAPINE 2.5 MG TAB PO SCH ×3 (08:28→21:00)
[2016-11-01] MEDS: CHOLECALCIFEROL 2,000 UNIT CAP PO SCH (08:29)
[2016-11-01] MEDS: METOPROLOL 50 MG TAB PO SCH ×2 (08:30→21:00)
[2016-11-01] MEDS: FUROSEMIDE 40 MG TAB PO SCH (08:30)
[2016-11-01] MEDS: ASPIRIN (EC) 81 MG TAB PO SCH (08:30)
[2016-11-01] MEDS: CYANOCOBALAMIN 500 MCG TAB PO SCH (08:30)
[2016-11-01] MEDS: LINAGLIPTIN 5 MG TABLET PO SCH (08:30)
[2016-11-01] MEDS: GABAPENTIN 100 MG CAP PO SCH ×3 (08:30→21:00)
[2016-11-01] MEDS: INSULIN ASPART [NOVOLOG] 3 ML PEN SC SCH ×7 (08:38→21:04)
[2016-11-01] MEDS: INSULIN GLARGINE [LANtus] 3 ML PEN SC SCH (08:39)
[2016-11-01] MEDS: VANCOMYCIN 1.5 GM in SOD CHLORIDE 0.9% 250 ML IVPB SCH (12:31)
--- NOTE | 2016-11-01 16:45 | PN ---
DATE: 11/01/2016 SUBJECTIVE: The patient seen with assistance of nursing staff. The patient appears to be acting we ll today, cheerful. No specific complaints. When asking if we can plan on discharging him from the hospital, he said, "no. I have my own plans." The patient remains somewhat still confused but ove rall much better. OBJECTIVE: VITAL SIGNS: Temperature 98.8, pulse 70, respirations 17, blood pressure 145/67, saturation 97%. GENERAL: The patient in no acute distress. The patient is pale. CARDIOVASCULAR: S1, S2, regular rate. LUNGS: Clear. ABDOMEN: Soft, nontender. EXTREMITIES: No clubbing, cyanosis, or edema. Left lower extremity erythema resolved. LABORATORY DATA: White count is 9.4, normal, hemoglobin 9.5, hematocrit 30, platelet count is 279, neutrophils 78%, lymphocytes 7%. Chemistry: Sodium 140, potassium 3.8, chloride 99, bicarbonate 31 , BUN is 35, creatinine 1.66, glucose level 188, slightly high. Likely the patient's appetite is im proving. Last glucose levels were 238, 204, and 198. HIV test was negative. MRSA of the nares is negative. MEDICATIONS: 1. Zyprexa 2.5 q. 6 p.r.n. 2. Vancomycin dosed per pharmacy. 3. Magnesium oxide q. 6 p.r.n. 4. Lasix 40 mg daily. 5. Lantus 20 daily. 6. Insulin aspart 14 units q. a.c. meals. 7. Ativan 0.5 q. 6 p.r.n. 8. Flomax 0.4 at bedtime. 9. Neurontin 200 t.i.d. 10. Aspirin 81 mg daily. 11. Vitamin D 2000 daily. 12. Vitamin B12 1000 daily. 13. Tradjenta 5 mg daily. 14. Lopressor 50 mg b.i.d. 15. Protonix 40 mg daily. 16. Hypoglycemia protocol as directed. 17. Zofran p.r.n. 18. Nitroglycerin p.r.n. 19. Tylenol p.r.n. 20. Colace p.r.n. 21. Milk of magnesia p.r.n. 22. Ambien p.r.n. 23. Vancomycin. 24. Dilaudid p.r.n. ASSESSMENT AND PLAN: This is a 66-year-old morbidly obese female with history of diabetes mellitus, chronic peripheral vascular disease, bilateral lower extremity DVT in the past, hypertens ion, diabetic neuropathy, osteoarthritis, history of noncompliance. Also, history of CKD, who prese nted with lower extremity cellulitis. 1. Respiratory: Stable. O2 as needed. 2. Cardiovascular: The patient with history of lower extremity deep venous thrombosis. Recent ult rasound is negative. In the meantime, he is being treated for deep venous thrombosis prophylaxis wi th sequential compression devices. His blood thinners are on hold because of his extensive right th igh hematoma as he sustained a fall and he required transfusions. 3. Infectious disease: ID is following. Remains on antibiotic taper. Hopefully we can discontinu e antibiotics soon. 4. Status post fall. Physical therapy as tolerated. X-ray did not reveal any evidence of fracture s. 5. Delirium. This may be hospital acquired versus secondary to medications versus other, now on Zy prexa pill. Tele psych recommendations. 6. Generalized weakness. Definitely needs higher level of care for skilled care as the patient was not accepted at [facility] acute rehab as the patient does not participate much o r still has a poor functional capacity. 7. Diabetes mellitus. We will insulin slightly up as the patient's appetite has improved. 8. Continue Protonix for GI prophylaxis. 9. Chronic kidney disease. Monitor electrolytes. The patient is on Lasix. 10. Clinically improved. We will follow. Dictated By: RANCHO ALMEIDA/OMAR Conf#: [id number] DID#: [id number]
[2016-11-01] MEDS: TAMSULOSIN (SR) 0.4 MG CAP PO SCH (21:00)
--- NOTE | 2016-11-01 21:00 | CONS ---
Date/Time of Note Date/Time of Note DATE: 11/01/16 TIME: 20:59 Assessment/Plan Assessment/Plan Chief Complaint/Hosp Course SUBJECTIVE: No acute changes. Awake, looks comfortable. No fevers. ANTIMICROBIALS: 1. Vancomycin. Through 10/30==> 17.9 2. Rocephin. PHYSICAL EXAMINATION: GENERAL: This is a morbidly obese elderly man who is alert, in no distress. HEENT: Head atraumatic, normocephalic. Sclerae anicteric. Buccal mucosa dry. NECK: Obese. CHEST: Rise symmetrical. Breath sounds clear. HEART: S1, S2. ABDOMEN: Soft. Bowel sounds present. EXTREMITIES: Bilateral lower extremity edema, erythema, left more than right, improving. ASSESSMENT: 1. Left lower extremity cellulitis, improving. 2. Bilateral lower extremity chronic venous stasis. 3. Morbid obesity. 4. Acute renal failure. PLAN: Stable, continue abx for 4 more days, keep BLE elevated DW staff Problems: Consultation Date/Type/Reason Admit Date/Time Oct 22, 2016 at 17:09 Type of Consultation: ID Exam/Review of Systems Vital Signs Vitals Vital Signs Date Time Temp Pulse Resp B/P Pulse Ox O2 Delivery O2 Flow Rate FiO2 11/01/16 18:18 Nasal Cannula 2.0 11/01/16 18:18 97.9 88 18 116/65 92 Intake and Output 10/31/16 10/31/16 11/01/16 15:00 23:00 07:00 Intake Total 560 ml 200 ml Output Total 800 ml 600 ml Balance -240 ml -400 ml Results Result Diagram: 11/01/16 0552 11/01/16 0552 Results 24 hrs Laboratory Tests Test 10/31/16 21:04 11/01/16 05:22 11/01/16 05:52 11/01/16 07:50 Bedside Glucose 169 198 Phosphorus Level 3.9 Magnesium Level 2.2 HIV (1&2) Antibody NEGATIVE White Blood Count 9.4 # Red Blood Count 3.26 L Hemoglobin 9.5 L Hematocrit 29.8 L Mean Corpuscular Volume 91.4 Mean Corpuscular Hemoglobin 29.1 Mean Corpuscular Hemoglobin Concent 31.9 L Red Cell Distribution Width 14.6 H Platelet Count 279 # Mean Platelet Volume 10.1 Neutrophils % 77.5 H Lymphocytes % 7.3 L Monocytes % 8.7 Eosinophils % 4.9 Basophils % 0.6 Nucleated Red Blood Cells % 0.0 Neutrophils # 7.3 Lymphocytes # 0.7 L Monocytes # 0.8 Eosinophils # 0.5 Basophils # 0.1 Nucleated Red Blood Cells # 0.0 Sodium Level 140 Potassium Level 3.8 Chloride Level 99 Carbon Dioxide Level 31 Anion Gap 14 Blood Urea Nitrogen 35 H Creatinine 1.66 H Glucose Level 188 Calcium Level 8.8 Total Bilirubin 0.5 Direct Bilirubin 0.00 Indirect Bilirubin 0.5 Aspartate Amino Transf (AST/SGOT) 14 L Alanine Aminotransferase (ALT/SGPT) 24 Alkaline Phosphatase 58 Total Protein 6.4 Albumin 3.4 Globulin 3.00 Albumin/Globulin Ratio 1.13 Test 11/01/16 08:32 11/01/16 12:31 11/01/16 17:40 11/01/16 18:55 Bedside Glucose 204 238 H 208 203 Medications Medications Current Medications Ondansetron HCl (Zofran Inj) 4 mg Q6H PRN IV NAUSEA AND/OR VOMITING; Start 10/22 at 22:00 Nitroglycerin (Nitroglycerin (Sl Tab) 0.4 Mg) 1 tab Q5M PRN SL CHEST PAIN; Start 10/22/16 at 22:00 Acetaminophen (Tylenol Tab) 650 mg Q6H PRN PO PAIN LEVEL 1-3 OR FEVER Last administered on 10/28/16 21:39; Admin Dose 650 MG; Start 10/22/16 at 22:00 Docusate Sodium (Colace) 100 mg Q12H PRN PO CONSTIPATION Last administered on 06:55; Admin Dose 100 MG; Start 10/22/16 at 22:00 Magnesium Hydroxide (Milk Of Mag) 30 ml DAILY PRN PO CONSTIPATION Last administered on 10/27/16 13:07; Admin Dose 30 ML; Start 10/22/16 at 22:00 Pantoprazole (Protonix Tab) 40 mg DAILY@06 PO Last administered on 11/01/16 06 :05; Admin Dose 40 MG; Start 10/23/16 at 06:00 Aspirin (Halfprin) 81 mg DAILY PO Last administered on 11/01/16 08:30; Admin Dose 81 MG; Start 10/23/16 at 09:00 Cholecalciferol (Vitamin D) 2,000 unit DAILY PO Last administered on 11/01/16 08:29; Admin Dose 2,000 UNIT; Start 10/23/16 at 09:00 Cyanocobalamin (Vitamin B12) 1,000 mcg DAILY PO Last administered on 11/01/16 08:30; Admin Dose 1,000 MCG; Start 10/23/16 at 09:00 Linagliptin (Tradjenta) 5 mg DAILY PO Last administered on 11/01/16 08:30; Admin Dose 5 MG; Start 10/23/16 at 09:00 Metoprolol Tartrate (Lopressor) 50 mg BID PO Last administered on 11/01/16 08: 30; Admin Dose 50 MG; Start 10/23/16 at 09:00 Tamsulosin HCl (Flomax) 0.4 mg HS PO Last administered on 10/31/16 21:05; Admin Dose 0.4 MG; Start 10/23/16 at 21:00 Zolpidem Tartrate (Ambien) 5 mg QHS PRN PO INSOMNIA; Start 10/22/16 at 22:00 Hydromorphone HCl (Dilaudid) 0.5 mg Q4H PRN IV PAIN; Start 10/22/16 at 22:00 Miscellaneous Information 1 ea NOTE XX ; Start 10/22/16 at 22:30 Glucose (Glutose) 15 gm Q15M PRN PO DECREASED GLUCOSE; Start 10/22/16 at 22:30 Glucose (Glutose) 22.5 gm Q15M PRN PO DECREASED GLUCOSE; Start 10/22/16 at 22:30 Dextrose (D50w Syringe) 25 ml Q15M PRN IV DECREASED GLUCOSE; Start 10/22/16 at 22:30 Dextrose (D50w Syringe) 50 ml Q15M PRN IV DECREASED GLUCOSE; Start 10/22/16 at 22:30 Glucagon (Glucagen) 1 mg Q15M PRN IM DECREASED GLUCOSE; Start 10/22/16 at 22:30 Glucose (Glutose) 15 gm Q15M PRN BUCCAL DECREASED GLUCOSE; Start 10/22/16 at 22: 30 Gabapentin (Neurontin) 200 mg TID PO Last administered on 11/01/16 12:30; Admin Dose 200 MG; Start 10/23/16 at 13:00 Lorazepam (Ativan) 0.5 mg Q6H PRN PO anxiety; Start 10/26/16 at 17:00 Furosemide (Lasix) 40 mg DAILY PO Last administered on 11/01/16 08:30; Admin Dose 40 MG; Start 10/28/16 at 09:00 Al Hydrox/Mg Hydrox/ Simethicone 30 ml 30 ml Q6H PRN PO DISTENSION/GAS/BLOATING ; Start 10/28/16 at 15:30 Vancomycin HCl/ Sodium Chloride (Vancocin/NS) 250 ml @ 83.333 mls/ hr Q24H IVPB Last administered on 11/01/16 12:31; Admin Dose 83.333 MLS/HR; Start at 13:00 Olanzapine (Zyprexa) 2.5 mg TID PO Last administered on 11/01/16 12:30; Admin Dose 2.5 MG; Start 10/30/16 at 21:00 Olanzapine (Zyprexa) 2.5 mg Q6 PRN PO psychosis; Start 10/30/16 at 15:30 Insulin Glargine (Lantus) 24 unit DAILY@08 SC ; Start 11/02/16 at 08:00 ENOCH YUN NP Nov 01, 2016 21:00
[2016-11-02] MEDS: PANTOPRAZOLE (EC) 40 MG TAB PO SCH (06:27)
[2016-11-02] MEDS ORDERED: INSULIN GLARGINE [LANtus] 3 ML PEN SC SCH (08:00)
[2016-11-02 08:47] VITALS: BP 139/77; RESP 19
[2016-11-02] MEDS: CYANOCOBALAMIN 500 MCG TAB PO SCH (08:53)
[2016-11-02] MEDS: GABAPENTIN 100 MG CAP PO SCH ×2 (08:53→12:59)
[2016-11-02] MEDS: OLANZAPINE 2.5 MG TAB PO SCH ×2 (08:53→12:59)
[2016-11-02] MEDS: CHOLECALCIFEROL 2,000 UNIT CAP PO SCH (08:53)
[2016-11-02] MEDS: LINAGLIPTIN 5 MG TABLET PO SCH (08:54)
[2016-11-02] MEDS: METOPROLOL 50 MG TAB PO SCH (08:54)
[2016-11-02] MEDS: FUROSEMIDE 40 MG TAB PO SCH (08:54)
[2016-11-02] MEDS: INSULIN ASPART [NOVOLOG] 3 ML PEN SC SCH ×4 (08:57→12:58)
[2016-11-02] MEDS: ASPIRIN (EC) 81 MG TAB PO SCH (09:04)
--- NOTE | 2016-11-02 12:52 | CONS ---
Date/Time of Note Date/Time of Note DATE: 11/02/16 TIME: 12:51 Assessment/Plan Assessment/Plan Chief Complaint/Hosp Course SUBJECTIVE: No acute changes. Awake, looks comfortable. No fevers. ANTIMICROBIALS: 1. Vancomycin. Through 10/30==> 17.9 2. Rocephin. PHYSICAL EXAMINATION: GENERAL: This is a morbidly obese elderly man who is alert, in no distress. HEENT: Head atraumatic, normocephalic. Sclerae anicteric. NECK: Obese. CHEST: Rise symmetrical. Breath sounds clear. HEART: S1, S2. ABDOMEN: Soft. Bowel sounds present. EXTREMITIES: Bilateral lower extremity edema, with improved erythema ASSESSMENT: 1. Left lower extremity cellulitis, improving. 2. Bilateral lower extremity chronic venous stasis. 3. Morbid obesity. 4. Acute renal failure. PLAN: Stable, continue abx for 3more days, keep BLE elevated DW staff Problems: Consultation Date/Type/Reason Admit Date/Time Oct 22, 2016 at 17:09 Type of Consultation: ID Exam/Review of Systems Vital Signs Vitals Vital Signs Date Time Temp Pulse Resp B/P Pulse Ox O2 Delivery O2 Flow Rate FiO2 11/02/16 08:47 98.3 75 19 139/77 92 11/01/16 18:18 Nasal Cannula 2.0 Intake and Output 11/01/16 11/01/16 11/02/16 15:00 23:00 07:00 Intake Total 500 ml Output Total 200 ml Balance 300 ml Results Result Diagram: 11/01/16 0552 11/01/16 0552 Results 24 hrs Laboratory Tests Test 11/01/16 17:40 11/01/16 18:55 11/01/16 21:02 11/02/16 08:13 Bedside Glucose 208 203 197 188 Test 11/02/16 12:13 Bedside Glucose 162 Medications Medications Current Medications Ondansetron HCl (Zofran Inj) 4 mg Q6H PRN IV NAUSEA AND/OR VOMITING; Start 10/22 at 22:00 Nitroglycerin (Nitroglycerin (Sl Tab) 0.4 Mg) 1 tab Q5M PRN SL CHEST PAIN; Start 10/22/16 at 22:00 Acetaminophen (Tylenol Tab) 650 mg Q6H PRN PO PAIN LEVEL 1-3 OR FEVER Last administered on 10/28/16t 21:39; Admin Dose 650 MG; Start 10/22/16 at 22:00 Docusate Sodium (Colace) 100 mg Q12H PRN PO CONSTIPATION Last administered on 06:55; Admin Dose 100 MG; Start 10/22/16 at 22:00 Magnesium Hydroxide (Milk Of Mag) 30 ml DAILY PRN PO CONSTIPATION Last administered on 10/27/16 13:07; Admin Dose 30 ML; Start 10/22/16 at 22:00 Pantoprazole (Protonix Tab) 40 mg DAILY@06 PO Last administered on 11/02/16 06 :27; Admin Dose 40 MG; Start 10/23/16 at 06:00 Aspirin (Halfprin) 81 mg DAILY PO Last administered on 11/02/16 09:04; Admin Dose 81 MG; Start 10/23/16 at 09:00 Cholecalciferol (Vitamin D) 2,000 unit DAILY PO Last administered on 11/02/16 08:53; Admin Dose 2,000 UNIT; Start 10/23/16 at 09:00 Cyanocobalamin (Vitamin B12) 1,000 mcg DAILY PO Last administered on 11/02/16 08:53; Admin Dose 1,000 MCG; Start 10/23/16 at 09:00 Linagliptin (Tradjenta) 5 mg DAILY PO Last administered on 11/02/16 08:54; Admin Dose 5 MG; Start 10/23/16 at 09:00 Metoprolol Tartrate (Lopressor) 50 mg BID PO Last administered on 11/02/16 08: 54; Admin Dose 50 MG; Start 10/23/16 at 09:00 Tamsulosin HCl (Flomax) 0.4 mg HS PO Last administered on 11/01/16 21:00; Admin Dose 0.4 MG; Start 10/23/16 at 21:00 Zolpidem Tartrate (Ambien) 5 mg QHS PRN PO INSOMNIA; Start 10/22/16 at 22:00 Hydromorphone HCl (Dilaudid) 0.5 mg Q4H PRN IV PAIN; Start 10/22/16 at 22:00 Miscellaneous Information 1 ea NOTE XX ; Start 10/22/16 at 22:30 Glucose (Glutose) 15 gm Q15M PRN PO DECREASED GLUCOSE; Start 10/22/16 at 22:30 Glucose (Glutose) 22.5 gm Q15M PRN PO DECREASED GLUCOSE; Start 10/22/16 at 22:30 Dextrose (D50w Syringe) 25 ml Q15M PRN IV DECREASED GLUCOSE; Start 10/22/16 at 22:30 Dextrose (D50w Syringe) 50 ml Q15M PRN IV DECREASED GLUCOSE; Start 10/22/16 at 22:30 Glucagon (Glucagen) 1 mg Q15M PRN IM DECREASED GLUCOSE; Start 10/22/16 at 22:30 Glucose (Glutose) 15 gm Q15M PRN BUCCAL DECREASED GLUCOSE; Start 10/22/16 at 22: 30 Gabapentin (Neurontin) 200 mg TID PO Last administered on 11/02/16 08:53; Admin Dose 200 MG; Start 10/23/16 at 13:00 Lorazepam (Ativan) 0.5 mg Q6H PRN PO anxiety; Start 10/26/16 at 17:00 Furosemide (Lasix) 40 mg DAILY PO Last administered on 11/02/16 08:54; Admin Dose 40 MG; Start 10/28/16 at 09:00 Al Hydrox/Mg Hydrox/ Simethicone 30 ml 30 ml Q6H PRN PO DISTENSION/GAS/BLOATING ; Start 10/28/16 at 15:30 Vancomycin HCl/ Sodium Chloride (Vancocin/NS) 250 ml @ 83.333 mls/ hr Q24H IVPB Last administered on 11/01/16 12:31; Admin Dose 83.333 MLS/HR; Start at 13:00 Olanzapine (Zyprexa) 2.5 mg TID PO Last administered on 11/02/16 08:53; Admin Dose 2.5 MG; Start 10/30/16 at 21:00 Olanzapine (Zyprexa) 2.5 mg Q6 PRN PO psychosis; Start 10/30/16 at 15:30 Insulin Glargine (Lantus) 24 unit DAILY@08 SC Last administered on 11/02/16 08 :57; Admin Dose 24 UNIT; Start 11/02/16 at 08:00 Miscellaneous Information (*Rx Drug Level Order Reminder*) VANCO TROUGH @ 1, 200 ON... ONCE ONCE XX ; Start 11/03/16 at 12:00; Stop 11/03/16 at 12:01 ENOCH YUN NP Nov 02, 2016 12:52
[2016-11-02] MEDS: VANCOMYCIN 1.5 GM in SOD CHLORIDE 0.9% 250 ML IVPB SCH (12:55)
--- NOTE | 2016-11-02 14:53 | PDOCDIS ---
Discharge Instructions CONDITION Patient Condition: Stable HOME CARE INSTRUCTIONS: Special Diet: RENAL DIET ACTIVITY: Activity Restrictions: Slowly Increase Activity FOLLOW UP/APPOINTMENTS Appointments see reconciliation, xarelto 15 mg daily is on hold 2ndary to right thigh hematoma, check CBC, CMP on 11/05/2016. RANCHO COVARRUBIAS MD Nov 02, 2016 14:52
--- NOTE | 2016-11-02 16:23 | DS ---
DATE OF ADMISSION: 10/22/2016 DATE OF DISCHARGE: 11/02/2016 REASON FOR ADMISSION: Lower extremity cellulitis, recurrent acute renal failure, hyperkalemia. HOSPITAL COURSE: The patient is a very unfortunate 65-year-old morbidly obese male with h istory of hypertension, diabetes mellitus, chronic pain, status post right shoulder rotator cuff rep air surgery, history of bilateral lower extremity deep venous thrombosis on Xarelto. Overall, very debilitated, not ambulatory per history. The patient also has diabetic neuropathy and resides at [facility]. The patient also has history of CHF with estimated ejecti on fraction around 40%. The patient on previous admission back in September had blistering and cellulitis of the left lower extremity. He was treated with improvement and discharged back to the assisted l iving facility with home health. Unfortunately, in the past week, he presented multiple times to [facility] and it is felt that he can be treated as an outpatient for his cellulitis. At this time upon arrival, he was noted to be more dehydrated with hyperkalemia and worsening kidney function and it was decided to admit the patient for further care as I started him on antibiotic therapy for his lower extremity cellulitis. I consulted Dr. Bianchi, the infectious disease specialist. The patien t was placed on vancomycin and Rocephin. A lower extremity ultrasound which was done on 09/24/2016 shows no evidence of DVT, but he still remains on Xarelto because of previous history of DVT and is nonambulatory status. Unfortunately, patient sustained a fall and so he underwent multiple imaging, including a CT scan of the brain which showed the following: No evidence of acute intracranial pat hology. There is mild to moderate volume loss with mild chronic small vessel ischemic changes. The other scan is fine, which showed an 8 x 11.8 x 3.8 oval-shaped collection in the subcutaneous tissu e just superficial to the iliotibial tract, presumably representing the patient's hematoma. Basical ly, that is what it is and ____. Also, a pelvic x-ray was done which shows degenerative changes of the lower lumbar spine, mild degenerative changes of the right hip. Hip x-ray as well of the right showed degenerative changes of the lumbar spine, mild degenerative change of the right hip. Again, there is no evidence of fracture. H and H did drop, so what I did was give him multiple blood produ cts, as an H and H is now stable. I also have been titrating his insulin up and down, based on how much he would eat. Patient would have episodes of psychosis. He stated that he does ____ want me t o be doctor. I have spoken with the patient's daughter and friends, and they also overall said that it is okay for me to continue, but I told them that once he gets to the [facility] facility, t ely will find him a physician. Also, he had pain in the right elbow. X-ray shows no visualized tra frank. There is osteopenia. The patient's appetite has improved and now he is actually acting better . Patient was seen by the telepsychiatric physician, who recommended to start him on Zyprexa with a diagnosis of delirium. I also asked Dr. Malik, who is a neuropsychiatric physician, who made s ome recommendations. DISCHARGE MEDICATIONS: The patient will be discharged with the following medications: 1. Tylenol 650 q.6h. p.r.n. 2. Aspirin 81 mg daily. We will keep him on aspirin. 3. Vitamin D 2000 units daily. 4. Vitamin B12 1000 daily. 5. Colace 100 mg every 12 hours as needed. 6. Lasix 40 mg daily. Previously, he was also on Zaroxolyn which we stopped. 7. The patient is on Neurontin 200 mg t.i.d. 6. Insulin aspart per sliding scale. 7. Insulin NovoLog 16 units q.a.c. meals. 8. Lantus 24 units daily. 9. Tradjenta 5 mg daily. 10. Ativan 0.5 q.6h. p.r.n. for anxiety. 11. Milk of magnesia p.r.n. 12. Lopressor 50 b.i.d. for treatment of hypoglycemia 13. Vancomycin as directed for 3 days. 14. Nitroglycerin p.r.n. 15. Zyprexa 2.5 t.i.d. and p.r.n. 16. Zofran 4 mg p.o. q.6h. p.r.n. 17. Protonix 40 mg daily. 18. Flomax 0.4 at bedtime. 19. Vancomycin IV dose per pharmacy for 3 days per ID. 20. Ambien 5 mg at bedtime p.r.n. for insomnia. 21. I believe he is also on Rocephin 1 gram IV every day x3 days. 22. We will also prescribe him Ferrous sulfate 325 p.o. every day. Physical therapy, psychiatry followup. LABORATORIES: CBC, CMP on 11/05/2016. FINAL DIAGNOSES: 1. Lower extremity cellulitis, left greater than right. 2. Acute renal failure. 3. Hyperkalemia. 4. Morbidly obese state. 5. Acute psychosis/delirium. 6. Right thigh hematoma status post fall. 7. History of lower extremity deep venous thrombosis, been on Xarelto. 8. Anemia, likely anemia of chronic disease and iron deficiency anemia secondary to right thigh ble eding. 9. Debilitated state. 10. Morbidly obese state. 11. Diabetes mellitus. 12. Chronic kidney disease. 13. History of B12 deficiency. 14. Peripheral vascular disease. 15. Wound care provided to the left mid ballesteros as he had a blister before, and he is prone to infecti on. 16. Benign prostatic hypertrophy. Case discussed with family members. They are aware of plan of care. Discharge plan of care discuss ed with clinical case manager. DIET: ADA 1800, 2 g sodium. ACTIVITY: With physical therapy. DISPOSITION: The patient will be discharged today. Dictated By: RANCHO ALMEIDA/OMAR Conf#: [id number] DID#: [id number]
--- NOTE | 2016-11-02 21:40 | CONS ---
DATE OF ADMISSION: 10/22/2016 DATE OF CONSULTATION: SUBJECTIVE: The patient is a 66-year-old male with multiple medical problems in the form of celluli tis, anemia, right elbow pain, psychosis, neuritis, weakness, diabetes. The patient has an acute on set of ____ confusion where the patient sees he sees the devil. Occasionally he makes a joke. The patient was confused, hallucinating. OBJECTIVE: GENERAL: On exam today, the patient is alert, awake, and follows simple commands. Looks confused a nd anxious. CRANIAL NERVES: Cranial nerves II-XII are intact. MOTOR: Moving both upper and lower extremities. SENSORY: Decreased for glove and sock for light touch and temperature. COORDINATION: [id number] test intact. HEART: Regular rate and rhythm. LUNGS: Equal breath sounds. ABDOMEN: Soft, relaxed, nondistended, nontender. ASSESSMENT AND PLAN: 1. The patient is 66 years old with underlying delirium probably secondary to underlying infection. 2. History of cellulitis with the patient on IV antibiotic. 3. Acute renal failure. 4. Anemia. 5. Dementia with delusion in which the patient may need followup with psychiatrist for antipsychoti c medication as well as memory medication, like Aricept, and to follow up the patient as an outpatie nt upon discharging. Again, thank you for asking me to see the patient with you. Dictated By: JESENIA MURPHY MD NA/NTS Conf#: [id number] DID#: [id number] CC: RANCHO COVARRUBIAS MD;*EndCC*
== END 2016-11-02 17:14 | DRG 638 ==
LOC: E/R 10:08 → TEL 17:09 → MS2 10-29 23:21 → TEL 10-30 09:55 → PP2 11-01 16:56
PROVIDERS: ADMIT Internal Medicine; ATTEND Internal Medicine
PROC: 30233N1 Transfusion of Nonautologous Red Blood Cells into Peripheral Vein, Percutaneous Approach (ICD-10-PCS; principal; 2016-10-28)
DX: E11.628 Type 2 diabetes mellitus with other skin complications (principal); L03.116 Cellulitis of left lower limb; N17.9 Acute kidney failure, unspecified; L03.115 Cellulitis of right lower limb; Z68.41 Body mass index [BMI] 40.0-44.9, adult; I13.0 Hypertensive heart and chronic kidney disease with heart failure and stage 1 through stage 4 chronic kidney disease, or unspecified chronic kidney disease; I50.40 Unspecified combined systolic (congestive) and diastolic (congestive) heart failure; F03.90 Unspecified dementia, unspecified severity, without behavioral disturbance, psychotic disturbance, mood disturbance, and anxiety; F05 Delirium due to known physiological condition; E78.5 Hyperlipidemia, unspecified; E87.5 Hyperkalemia; E66.01 Morbid (severe) obesity due to excess calories; G89.29 Other chronic pain; E11.40 Type 2 diabetes mellitus with diabetic neuropathy, unspecified; E11.22 Type 2 diabetes mellitus with diabetic chronic kidney disease; N18.9 Chronic kidney disease, unspecified; E11.51 Type 2 diabetes mellitus with diabetic peripheral angiopathy without gangrene; N40.0 Benign prostatic hyperplasia without lower urinary tract symptoms; I87.2 Venous insufficiency (chronic) (peripheral); I25.5 Ischemic cardiomyopathy; F41.9 Anxiety disorder, unspecified; I25.10 Atherosclerotic heart disease of native coronary artery without angina pectoris; F29 Unspecified psychosis not due to a substance or known physiological condition; E11.65 Type 2 diabetes mellitus with hyperglycemia; D63.1 Anemia in chronic kidney disease; M25.521 Pain in right elbow; M79.81 Nontraumatic hematoma of soft tissue; R53.81 Other malaise; R53.1 Weakness; W19.XXXA Unspecified fall, initial encounter; E53.8 Deficiency of other specified B group vitamins; D50.0 Iron deficiency anemia secondary to blood loss (chronic); Z86.718 Personal history of other venous thrombosis and embolism; Z87.891 Personal history of nicotine dependence; Z79.4 Long term (current) use of insulin; Z79.82 Long term (current) use of aspirin; Z79.01 Long term (current) use of anticoagulants
CPT/HCPCS: 36415; 36430; 70450; 71010; 72170; 73070; 73510; 73700; 80048; 80053; 80202; 82378; 82550; 82553; 82962; 83735; 84100; 84443; 84484; 85014; 85018; 85025; 85610; 85730; 86592; 86703; 86850; 86900; 86901; 86920; 87081; 93005; 93922; 93970; 96365; 96366; 96368; 96375; 97110; 97162; 97530; J0696; J1815; J2543; J3370; J7030; J7040; J7050; P9016